=== PATIENT | female | born 1990 | race Caucasian/White ===

== ENCOUNTER 2016-03-02 23:36 | Emergency (ER) | payer OTHER ==
[2016-03-02 23:43] VITALS: BP 110/64; PULSE 82; RESP 18; TEMP 98
[2016-03-03] MEDS ORDERED: HYDROmorphone 2 MG/ML 1 ML SYRINGE IM STA (00:35)
--- NOTE | 2016-03-03 00:52 | ED ---
General Adult HPI - General Chief complaint: Abdominal Pain Stated complaint: Pelvic Pain Time Seen by Provider: 03/03/16 00:26 Source: patient, RN notes reviewed, old records reviewed Mode of arrival: wheelchair Limitations: no limitations - History of Present Illness Initial comments: This is a 26-year-old female in the ER for bowel pain. Patient's of dull pain and suprapubic about pain. No dysuria no bowel or bladder issues no fevers. Patient has history of Crohn's this pain is not similar to her Crohn's, of bowel surgery would did have bowel movement today. No nausea vomiting no fever. Patient states this feels just like prior history of ovarian cysts, patient does take Tylenol with no help. Patient denies vaginal bleeding, denies any possibility of being at this time. Patient states she does have follow-up with OB and would not like any further evaluation done today - Related Data Home Medications Medication Instructions Recorded Confirmed Adalimumab [Humira Pen] 40 mg IM Q14D 09/28/13 03/02/16 Gabapentin [Neurontin] 300 mg PO BID 09/23/15 03/02/16 Loperamide [Imodium] 4 mg PO DAILY 09/23/15 03/02/16 Cyanocobalamin [Vitamin B-12] 500 mcg PO DAILY 03/02/16 03/02/16 Ferrous Sulfate [Feosol] 325 mg PO DAILY 03/02/16 03/02/16 Allergies Allergy/AdvReac Type Severity Reaction Status Date / Time cat dander Allergy Swelling Verified 03/02/16 23:43 ciprofloxacin [From Cipro] Allergy Unknown Verified 03/02/16 23:43 ciprofloxacin HCl Allergy Unknown Verified 03/02/16 23:43 [From Cipro] codeine Allergy Unknown Verified 03/02/16 23:43 diphenhydramine HCl Allergy Unknown Verified 03/02/16 23:43 [From Benadryl] Latex, Natural Rubber Allergy Unknown Verified 03/02/16 23:43 meperidine HCl [From Demerol] Allergy Unknown Verified 03/02/16 23:43 morphine Allergy Unknown Verified 03/02/16 23:43 metronidazole [From Flagyl] AdvReac Unknown Verified 03/02/16 23:43 Review of Systems ROS Statement: Those systems with pertinent positive or pertinent negative responses have been documented in the HPI. ROS Other: All systems not noted in ROS Statement are negative. 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 Ileal pouch and anal anastomosis in September 2010. Past Anesthesia/Blood Transfusion Reactions: No Reported Reaction Past Psychological History: Anxiety, Bipolar, Depression Additional Psychological History / Comment(s): Borderline personality. Smoking Status: Former smoker Past Alcohol Use History: None Reported Additional Past Alcohol Use History / Comment(s): Patient states she does not smoke cigarettes. She does smoke marijuana on a regular basis and is trying to get a medical marijuana card. She denies any alcohol use or any other street drug use. Past Drug Use History: Marijuana - Past Family History Father Family Medical History: Unable to Obtain Additional Family Medical History / Comment(s): Father is 54 years of age and has a problem with alcoholism. Mother Additional Family Medical History / Comment(s): Mother is in her 50s and has mental health issues as well as treatment currently for cat scratch fever. Brother(s) Additional Family Medical History / Comment(s): Patient has 2 brothers one has problems with IBS and one has anger management issues. Patient does not have any sisters. She does not have any children of her own. She states there was a grandmother with Crohn's disease. General Exam Limitations: no limitations General appearance: alert, in no apparent distress Head exam: Present: atraumatic, normocephalic, normal inspection Eye exam: Present: normal appearance, PERRL, EOMI. Absent: scleral icterus, conjunctival injection, periorbital swelling ENT exam: Present: normal exam, mucous membranes moist Neck exam: Present: normal inspection. Absent: tenderness, meningismus, lymphadenopathy Respiratory exam: Present: normal lung sounds bilaterally. Absent: respiratory distress, wheezes, rales, rhonchi, stridor Cardiovascular Exam: Present: regular rate, normal rhythm, normal heart sounds. Absent: systolic murmur, diastolic murmur, rubs, gallop, clicks GI/Abdominal exam: Present: soft, normal bowel sounds. Absent: distended, tenderness, guarding, rebound, rigid Extremities exam: Present: normal inspection, full ROM, normal capillary refill. Absent: tenderness, pedal edema, joint swelling, calf tenderness Back exam: Present: normal inspection Neurological exam: Present: alert, oriented X3, CN II-XII intact Psychiatric exam: Present: normal affect, normal mood Skin exam: Present: warm, dry, intact, normal color. Absent: rash Course Vital Signs 03/02/16 23:39 Temperature 98.0 F Pulse Rate 82 Respiratory 18 Rate Blood Pressure 110/64 O2 Sat by Pulse 98 Oximetry - Reevaluation(s) Reevaluation #1: 03/03/16 00:51 Patient's pain is well-controlled Medical Decision Making - Medical Decision Making 26 female year with acute on chronic pain, pain secondary to ovarian cysts, patient does have history of colitis but that is not an issue at this time. Patient can be discharged home Disposition Clinical Impression: Ovarian cyst, Abdominal pain Disposition: HOME SELF-CARE Condition: Good Instructions: Ovarian Cyst (ED) Referrals: None,Stated [Primary Care Provider] - 1-2 days
[2016-03-03 00:58] LABS: Appearance,Urine Clear (Clear); Bilirubin,Urine Negative (Negative); Glucose,Urine (UA) Negative (Negative); Ketones,Urine Trace (Negative); Leukocyte Esterase,Urine Negative (Negative); Nitrite,Urine Negative (Negative); PH, Urine 5.5 (5.0-8.0); Protein,Urine Negative (Negative); UA Billing (MACRO vs. MICRO) CHEM; Urobilinogen,Urine <2.0 mg/dL (<2.0)
[2016-03-03] MEDS ORDERED: ONDANSETRON ODT 4 MG TAB PO STA (01:16)
== END 2016-03-03 01:18 | disposition home or self-care (01) ==
LOC: EC 23:36
DX: N83.209 Unspecified ovarian cyst, unspecified side (principal); Z88.5 Allergy status to narcotic agent; Z88.1 Allergy status to other antibiotic agents; Z91.040 Latex allergy status; Z88.8 Allergy status to other drugs, medicaments and biological substances; Z91.048 Other nonmedicinal substance allergy status; Z79.899 Other long term (current) drug therapy; K50.90 Crohn's disease, unspecified, without complications; Z87.891 Personal history of nicotine dependence; M79.7 Fibromyalgia; Z93.2 Ileostomy status
CPT/HCPCS: 96372; 99284; 81003; 81025; 87086; J1170

== ENCOUNTER 2016-07-25 03:31 | Emergency (ER) | payer OTHER ==
[2016-07-25 03:36] VITALS: RESP 18
[2016-07-25] MEDS ORDERED: SODIUM CHLORIDE 0.9% 1,000 ML IV STA (03:46)
[2016-07-25] MEDS ORDERED: ONDANSETRON 4 MG/2 ML VIAL IVP STA (03:46)
[2016-07-25] MEDS ORDERED: HYDROmorphone 1 MG/ML 1 ML SYRINGE IVP STA ×2 (03:47→05:57)
--- NOTE | 2016-07-25 03:49 | ED ---
Abdominal Pain HPI - General Source: patient, RN notes reviewed Mode of arrival: ambulatory Limitations: no limitations <Art Lo - Last Filed: 07/25/16 03:48> <Rodney Ramey - Last Filed: 07/25/16 06:14> - General Chief Complaint: Abdominal Pain Stated Complaint: Abdominal Pain/Bloody Stools Time Seen by Provider: 07/25/16 03:40 - History of Present Illness Initial Comments: This a 26-year-old female presents emergency Department chief complaint abdominal pain. Patient states she's been having increasing abdominal pain over the last few days. Patient states that she has also she's had some bloody stools in which she's had in the past secondary to her Crohn's disease. Patient states she's had bowel resection with J-pouch. Patient states she sees a inside meter tester at the [facility]. Patient states also today she has she's had nausea and vomiting states is only after she drank a large amount of tea. Patient denies any hematemesis or coffee-ground emesis. Patient denies any dysuria or hematuria. She states that she believes that she had a fever the other day but has had no fever or chills today. Denies chest pain, shortness breath, headache or dizziness. Patient denies any chance . (Art Lo) - Related Data Home Medications Medication Instructions Recorded Confirmed Adalimumab [Humira Pen] 40 mg IM Q14D 09/28/13 07/25/16 Loperamide [Imodium] 6 mg PO DAILY 09/23/15 07/25/16 Cyanocobalamin [Vitamin B-12] 500 mcg PO DAILY 03/02/16 07/25/16 Previous Rx's Medication Instructions Recorded Mesalamine [Canasa] 1,000 mg RECTAL QMONTH #5 supp 07/25/16 predniSONE 20 mg PO BID #8 tab 07/25/16 Allergies Allergy/AdvReac Type Severity Reaction Status Date / Time cat dander Allergy Swelling Verified 07/25/16 03:36 ciprofloxacin [From Cipro] Allergy Unknown Verified 07/25/16 03:36 ciprofloxacin HCl Allergy Unknown Verified 07/25/16 03:36 [From Cipro] codeine Allergy Unknown Verified 07/25/16 03:36 diphenhydramine HCl Allergy Unknown Verified 07/25/16 03:36 [From Benadryl] Latex, Natural Rubber Allergy Unknown Verified 07/25/16 03:36 meperidine HCl [From Demerol] Allergy Unknown Verified 07/25/16 03:36 morphine Allergy Unknown Verified 07/25/16 03:36 metronidazole [From Flagyl] AdvReac Unknown Verified 07/25/16 03:36 Review of Systems ROS Other: All systems not noted in ROS Statement are negative. <Art Lo - Last Filed: 07/25/16 03:48> ROS Other: All systems not noted in ROS Statement are negative. <Rodney Ramey - Last Filed: 07/25/16 06:14> ROS Statement: Those systems with pertinent positive or pertinent negative responses have been documented in the HPI. 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 Ileal pouch and anal anastomosis in September 2010. Past Anesthesia/Blood Transfusion Reactions: No Reported Reaction Past Psychological History: Anxiety, Bipolar, Depression Additional Psychological History / Comment(s): Borderline personality. Smoking Status: Former smoker Past Alcohol Use History: None Reported Additional Past Alcohol Use History / Comment(s): Patient states she does not smoke cigarettes. She does smoke marijuana on a regular basis and is trying to get a medical marijuana card. She denies any alcohol use or any other street drug use. Past Drug Use History: Marijuana - Past Family History Father Family Medical History: Unable to Obtain Additional Family Medical History / Comment(s): Father is 54 years of age and has a problem with alcoholism. Mother Additional Family Medical History / Comment(s): Mother is in her 50s and has mental health issues as well as treatment currently for cat scratch fever. Brother(s) Additional Family Medical History / Comment(s): Patient has 2 brothers one has problems with IBS and one has anger management issues. Patient does not have any sisters. She does not have any children of her own. She states there was a grandmother with Crohn's disease. <Art Lo - Last Filed: 07/25/16 03:48> General Exam Limitations: no limitations General appearance: alert, in no apparent distress Respiratory exam: Present: normal lung sounds bilaterally. Absent: respiratory distress, wheezes, rales, rhonchi, stridor Cardiovascular Exam: Present: regular rate, normal rhythm, normal heart sounds. Absent: systolic murmur, diastolic murmur, rubs, gallop, clicks GI/Abdominal exam: Present: soft, tenderness (Mild diffuse), normal bowel sounds. Absent: distended, guarding, rebound, rigid Back exam: Absent: CVA tenderness (R), CVA tenderness (L) Skin exam: Present: warm, dry, intact, normal color. Absent: rash <Art Lo - Last Filed: 07/25/16 03:48> Medical Decision Making <Art Lo - Last Filed: 07/25/16 03:48> - Lab Data Result diagrams: 07/25/16 04:12 07/25/16 04:12 <Rodney Ramey - Last Filed: 07/25/16 06:14> - Medical Decision Making This patient is a 26-year-old woman with history of colitis who presents with abdominal pain. Following treatment she is feeling much better and requests to go home with outpatient treatment. We discussed return parameters and appropriate follow-up. The patient states that she has had good results with Canasa suppositories, and will defer to patient request, as well as short course of steroids. I saw this patient in conjunction with the physician warehouse administrative assistant. I performed independent history and physical exam. Agree with case management. The abdominal exam is benign, with no peritoneal signs. (Rodney Ramey) - Lab Data Lab Results 07/25/16 07/25/16 07/25/16 Range/Units 04:12 04:12 04:12 WBC 10.1 (3.8-10.6) k/uL RBC 3.77 L (3.80-5.40) m/uL Hgb 12.8 (11.4-16.0) gm/dL Hct 37.1 (34.0-46.0) % MCV 98.5 (80.0-100.0) fL MCH 34.0 (25.0-35.0) pg MCHC 34.6 (31.0-37.0) g/dL RDW 12.4 (11.5-15.5) % Plt Count 245 (150-450) k/uL Neutrophils % 64 % Lymphocytes % 27 % Monocytes % 5 % Eosinophils % 2 % Basophils % 0 % Neutrophils # 6.5 (1.3-7.7) k/uL Lymphocytes # 2.7 (1.0-4.8) k/uL Monocytes # 0.5 (0-1.0) k/uL Eosinophils # 0.2 (0-0.7) k/uL Basophils # 0.0 (0-0.2) k/uL Sodium 141 (137-145) mmol/L Potassium 4.0 (3.5-5.1) mmol/L Chloride 105 (98-107) mmol/L Carbon Dioxide 25 (22-30) mmol/L Anion Gap 11 mmol/L BUN 11 (7-17) mg/dL Creatinine 0.60 (0.52-1.04) mg/dL Est GFR (MDRD) Af Amer >60 (>60 ml/min/1.73 sqM) Est GFR (MDRD) Non-Af >60 (>60 ml/min/1.73 sqM) Glucose 98 (74-99) mg/dL Calcium 9.6 (8.4-10.2) mg/dL Total Bilirubin 0.2 (0.2-1.3) mg/dL AST 20 (14-36) U/L ALT 21 (9-52) U/L Alkaline Phosphatase 49 (38-126) U/L Total Protein 6.6 (6.3-8.2) g/dL Albumin 4.2 (3.5-5.0) g/dL Amylase 61 (30-110) U/L Lipase 98 (23-300) U/L Urine Color Urine Appearance (Clear) Urine pH (5.0-8.0) Ur Specific [place] (1.001-1.035) Urine Protein (Negative) Urine Glucose (UA) (Negative) Urine Ketones (Negative) Urine Blood (Negative) Urine Nitrite (Negative) Urine Bilirubin (Negative) Urine Urobilinogen (<2.0) mg/dL Ur Leukocyte Esterase (Negative) Urine RBC (0-5) /hpf Urine WBC (0-5) /hpf Ur Squamous Epith Cells (0-4) /hpf Urine Mucus (None) /hpf Urine HCG, Qual Not Detected (Not Detectd) Stool Occult Blood (Negative) 07/25/16 07/25/16 Range/Units 04:12 04:12 WBC (3.8-10.6) k/uL RBC (3.80-5.40) m/uL Hgb (11.4-16.0) gm/dL Hct (34.0-46.0) % MCV (80.0-100.0) fL MCH (25.0-35.0) pg MCHC (31.0-37.0) g/dL RDW (11.5-15.5) % Plt Count (150-450) k/uL Neutrophils % % Lymphocytes % % Monocytes % % Eosinophils % % Basophils % % Neutrophils # (1.3-7.7) k/uL Lymphocytes # (1.0-4.8) k/uL Monocytes # (0-1.0) k/uL Eosinophils # (0-0.7) k/uL Basophils # (0-0.2) k/uL Sodium (137-145) mmol/L Potassium (3.5-5.1) mmol/L Chloride (98-107) mmol/L Carbon Dioxide (22-30) mmol/L Anion Gap mmol/L BUN (7-17) mg/dL Creatinine (0.52-1.04) mg/dL Est GFR (MDRD) Af Amer (>60 ml/min/1.73 sqM) Est GFR (MDRD) Non-Af (>60 ml/min/1.73 sqM) Glucose (74-99) mg/dL Calcium (8.4-10.2) mg/dL Total Bilirubin (0.2-1.3) mg/dL AST (14-36) U/L ALT (9-52) U/L Alkaline Phosphatase (38-126) U/L Total Protein (6.3-8.2) g/dL Albumin (3.5-5.0) g/dL Amylase (30-110) U/L Lipase (23-300) U/L Urine Color Yellow Urine Appearance Clear (Clear) Urine pH 6.0 (5.0-8.0) Ur Specific [place] 1.015 (1.001-1.035) Urine Protein Negative (Negative) Urine Glucose (UA) Negative (Negative) Urine Ketones Negative (Negative) Urine Blood Negative (Negative) Urine Nitrite Negative (Negative) Urine Bilirubin Negative (Negative) Urine Urobilinogen <2.0 (<2.0) mg/dL Ur Leukocyte Esterase Small H (Negative) Urine RBC <1 (0-5) /hpf Urine WBC 5 (0-5) /hpf Ur Squamous Epith Cells <1 (0-4) /hpf Urine Mucus Rare H (None) /hpf Urine HCG, Qual (Not Detectd) Stool Occult Blood Negative (Negative) Disposition <Art Lo - Last Filed: 07/25/16 03:48> <Rodney Ramey - Last Filed: 07/25/16 06:14> Clinical Impression: Abdominal pain Disposition: HOME SELF-CARE Condition: Good Instructions: Abdominal Pain (ED) Prescriptions: Mesalamine [Canasa] 1,000 mg RECTAL QMONTH #5 supp predniSONE 20 mg PO BID #8 tab Referrals: None,Stated [Primary Care Provider] - 1-2 days
[2016-07-25 04:24] LABS: Basophils % (A) 0 %; CH 33.9; CHCM 34.6; Eosinophils # (A) 0.2 k/uL (0-0.7); Eosinophils % (A) 2 %; HCT 37.1 % (34.0-46.0); HDW 2.15; HGB 12.8 gm/dL (11.4-16.0); Luc # (Auto) 0.16; Luc % (Auto) 2; Lymphocytes # (A) 2.7 k/uL (1.0-4.8); Lymphocytes % (A) 27 %; MCHC 34.6 g/dL (31.0-37.0); MCV 98.5 fL (80.0-100.0); Mean Platelet Volume 6.9; Monocytes # (A) 0.5 k/uL (0-1.0); Monocytes % (A) 5 %; Neutrophils # (A) 6.5 k/uL (1.3-7.7); Neutrophils % (A) 64 %; RBC 3.77 m/uL (3.80-5.40); RDW 12.4 % (11.5-15.5); WBC 10.1 k/uL (3.8-10.6); WBC (Perox) 9.96
[2016-07-25 04:25] LABS: Appearance,Urine Clear (Clear); Bilirubin,Urine Negative (Negative); Glucose,Urine (UA) Negative (Negative); Ketones,Urine Negative (Negative); Leukocyte Esterase,Urine Small (Negative); Mucus,Urine Rare /hpf; Nitrite,Urine Negative (Negative); Particle Count 1458; Protein,Urine Negative (Negative); RBC,Urine <1 /hpf (0-5); Specific Gravity,Urine 1.015 (1.001-1.035); Squamous Epithelial Cell,Urine <1 /hpf (0-4); UA Billing (MACRO vs. MICRO) MICRO; Urobilinogen,Urine <2.0 mg/dL (<2.0); WBC,Urine 5 /hpf (0-5)
[2016-07-25 04:34] LABS: ALT 21 U/L (9-52); AST 20 U/L (14-36); Alkaline Phosphatase 49 U/L (38-126); Amylase 61 U/L (30-110); Anion Gap 11 mmol/L; Blood Urea Nitrogen 11 mg/dL (7-17); Calcium 9.6 mg/dL (8.4-10.2); Carbon Dioxide 25 mmol/L (22-30); Chloride 105 mmol/L (98-107); Glucose 98 mg/dL (74-99); Non-African American GFR(MDRD) >60 (>60 ml/min/1.73 sqM); Sodium 141 mmol/L (137-145); Total Bilirubin 0.2 mg/dL (0.2-1.3); Total Protein 6.6 g/dL (6.3-8.2)
--- NOTE | 2016-07-25 05:16 | XR ---
EXAM: XR Abdomen Complete, 2 or More Views CLINICAL HISTORY: abdominal pain TECHNIQUE: Frontal view of the abdomen/pelvis with upright view of the abdomen. COMPARISON: Abdominal x-ray dated 06/20/2014 FINDINGS: Intraperitoneal space: No free air. Gastrointestinal tract: Unremarkable. No dilation. Bones/joints: Unremarkable. IMPRESSION: Normal abdominal x-rays.
[2016-07-25] MEDS ORDERED: methylPREDNISolone SOD SUCCI 125 MG/2 ML VIAL IV STA (05:58)
[2016-07-25 06:21] VITALS: BP 107/58; PULSE 72; TEMP 97.6
== END 2016-07-25 06:20 | disposition home or self-care (01) ==
LOC: EC 03:31
DX: R10.84 Generalized abdominal pain (principal); R11.2 Nausea with vomiting, unspecified; Z90.49 Acquired absence of other specified parts of digestive tract; Z87.891 Personal history of nicotine dependence; Z88.1 Allergy status to other antibiotic agents; Z88.8 Allergy status to other drugs, medicaments and biological substances; Z88.5 Allergy status to narcotic agent; Z91.040 Latex allergy status; Z91.048 Other nonmedicinal substance allergy status; Z91.09 Other allergy status, other than to drugs and biological substances; Z79.899 Other long term (current) drug therapy
CPT/HCPCS: 99284; 96374; 96375 ×2; 96376; 96361; 36415; 80053; 82150; 83690; 85025; 82272; 81001; 81025; 74000; J2930; J2405; J1170

== ENCOUNTER 2016-07-26 03:28 | Emergency (ER) | payer OTHER ==
[2016-07-26] MEDS ORDERED: HYDROmorphone 1 MG/ML 1 ML SYRINGE IM STA (03:46)
[2016-07-26] MEDS ORDERED: PROMETHAZINE INJ 25 MG/ML 1 ML VIAL IM STA (03:46)
--- NOTE | 2016-07-26 03:49 | ED ---
Headache HPI - General Chief Complaint: Headache Stated Complaint: Migrane Time Seen by Provider: 07/26/16 03:39 Source: patient, RN notes reviewed Mode of arrival: ambulatory Limitations: no limitations - History of Present Illness Initial Comments: 26-year-old female presents emergency Department with chief complaint of migraine headache. Patient states that she usually gets severe migraine headaches and this is her typical headache. Patient states she has noticed when she gets Zofran she gets a headache from it. She states that she was seen in emergency department last night for Crohn's. Patient states that she is feeling better. Aspect states her headache is unbearable. Patient does state that she had a gas leak in her household but states that they had fire department come out and having was normal. Patient's is requesting something for her headache at this time. She does have some nausea and photophobia. Patient has any chest pain, back pain. She states that she feels that the pains radiating from her from her head down to the backside into her neck. - Related Data Home Medications Medication Instructions Recorded Confirmed Adalimumab [Humira Pen] 40 mg IM Q14D 09/28/13 07/26/16 Loperamide [Imodium] 6 mg PO DAILY 09/23/15 07/26/16 Cyanocobalamin [Vitamin B-12] 500 mcg PO DAILY 03/02/16 07/26/16 Previous Rx's Medication Instructions Recorded Mesalamine [Canasa] 1,000 mg RECTAL QMONTH #5 supp 07/25/16 predniSONE 20 mg PO BID #8 tab 07/25/16 Allergies Allergy/AdvReac Type Severity Reaction Status Date / Time cat dander Allergy Swelling Verified 07/26/16 03:34 ciprofloxacin [From Cipro] Allergy Unknown Verified 07/26/16 03:34 ciprofloxacin HCl Allergy Unknown Verified 07/26/16 03:34 [From Cipro] codeine Allergy Unknown Verified 07/26/16 03:34 diphenhydramine HCl Allergy Unknown Verified 07/26/16 03:34 [From Benadryl] Latex, Natural Rubber Allergy Unknown Verified 07/26/16 03:34 meperidine HCl [From Demerol] Allergy Unknown Verified 07/26/16 03:34 morphine Allergy Unknown Verified 07/26/16 03:34 metronidazole [From Flagyl] AdvReac Unknown Verified 07/26/16 03:34 Review of Systems ROS Statement: Those systems with pertinent positive or pertinent negative responses have been documented in the HPI. ROS Other: All systems not noted in ROS Statement are negative. 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 Ileal pouch and anal anastomosis in September 2010. Past Anesthesia/Blood Transfusion Reactions: No Reported Reaction Past Psychological History: Anxiety, Bipolar, Depression Additional Psychological History / Comment(s): Borderline personality. Smoking Status: Former smoker Past Alcohol Use History: None Reported Additional Past Alcohol Use History / Comment(s): Patient states she does not smoke cigarettes. She does smoke marijuana on a regular basis and is trying to get a medical marijuana card. She denies any alcohol use or any other street drug use. Past Drug Use History: Marijuana - Past Family History Father Family Medical History: Unable to Obtain Additional Family Medical History / Comment(s): Father is 54 years of age and has a problem with alcoholism. Mother Additional Family Medical History / Comment(s): Mother is in her 50s and has mental health issues as well as treatment currently for cat scratch fever. Brother(s) Additional Family Medical History / Comment(s): Patient has 2 brothers one has problems with IBS and one has anger management issues. Patient does not have any sisters. She does not have any children of her own. She states there was a grandmother with Crohn's disease. General Exam Limitations: no limitations General appearance: alert, in no apparent distress Head exam: Present: atraumatic, normocephalic, normal inspection Eye exam: Present: normal appearance, PERRL, EOMI. Absent: scleral icterus, conjunctival injection, periorbital swelling ENT exam: Present: normal exam, normal oropharynx, mucous membranes moist Neck exam: Present: normal inspection, full ROM. Absent: tenderness, meningismus, lymphadenopathy Respiratory exam: Present: normal lung sounds bilaterally. Absent: respiratory distress, wheezes, rales, rhonchi, stridor Cardiovascular Exam: Present: regular rate, normal rhythm, normal heart sounds. Absent: systolic murmur, diastolic murmur, rubs, gallop, clicks Neurological exam: Present: alert, oriented X3, CN II-XII intact, reflexes normal. Absent: motor sensory deficit Skin exam: Present: warm, dry, intact, normal color. Absent: rash Course Vital Signs 07/26/16 03:32 Temperature 98.0 F Pulse Rate 68 Respiratory 18 Rate Blood Pressure 106/65 O2 Sat by Pulse 99 Oximetry Medical Decision Making - Medical Decision Making 26-year-old female presented emergency from for migraine headache. Patient's headache is a typical headache she has no neurological deficits. Patient has no fever no meningismus. Patient will be discharged after IM injections. Return parameters were discussed. Disposition Clinical Impression: Migraine Disposition: HOME SELF-CARE Condition: Stable Instructions: Acute Headache (ED) Additional Instructions: Please return to the Emergency Department if symptoms worsen or any other concerns. Referrals: None,Stated [Primary Care Provider] - 1-2 days Time of Disposition: 03:49
[2016-07-26] MEDS ORDERED: diphenhydrAMINE 50 MG/ML 1 ML VIAL IM STA (04:51)
[2016-07-26] MEDS ORDERED: methylPREDNISolone SOD SUCCI 125 MG/2 ML VIAL IM STA (04:51)
[2016-07-26 04:53] VITALS: BP 113/69; PULSE 54; RESP 12; TEMP 97.7
== END 2016-07-26 05:47 | disposition home or self-care (01) ==
LOC: EC 03:28
DX: G43.909 Migraine, unspecified, not intractable, without status migrainosus (principal); K50.90 Crohn's disease, unspecified, without complications; Z87.891 Personal history of nicotine dependence; Z79.899 Other long term (current) drug therapy; Z88.1 Allergy status to other antibiotic agents; Z88.5 Allergy status to narcotic agent; Z88.8 Allergy status to other drugs, medicaments and biological substances; Z91.040 Latex allergy status; Z91.048 Other nonmedicinal substance allergy status
CPT/HCPCS: 99283; 96372 ×4; J1200; J2550; J2930; J1170

== ENCOUNTER 2016-08-30 16:41 | Emergency (ER) | payer OTHER ==
[2016-08-30 16:56] VITALS: TEMP 98.8
--- NOTE | 2016-08-30 17:48 | ED ---
General Adult HPI - General Chief complaint: Anxiety Stated complaint: Anxiety Time Seen by Provider: 08/30/16 17:31 Source: patient, RN notes reviewed, old records reviewed Mode of arrival: ambulatory Limitations: no limitations - History of Present Illness Initial comments: 26-year-old female presents to the ED chief complaint of severe anxiety and abdominal pain. Patient reports that she has a history of Crohn's disease and her anxiety is exacerbating her Crohn's disease. Patient states that she has not ate for a week. She reports that she has recently discontinued taking gabapentin as it was causing her to have suicidal thoughts. Patient reports that she does not have any suicidal thoughts at this time and is much better after stopping to take the gabapentin. Patient does have a history of severe Crohn's disease which she does have a history of bowel resection and J-pouch renal stenoses. 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 Patient states that she's had normal urination. She is currently on her menstrual cycle. Denies any vomiting. She denies any blood in her stools and did have a bowel movement earlier today. States that she does not know if the anxiety is causing the abdominal pain or any abdominal pain is worsening her anxiety. Patient denies any recent fever, chills, shortness of breath, chest pain, back pain, numbness or tingling, dysuria or hematuria, constipation or diarrhea, headaches or visual changes, or any other current symptoms - Related Data Home Medications Medication Instructions Recorded Confirmed Adalimumab [Humira Pen] 40 mg IM Q14D 09/28/13 08/30/16 Loperamide [Imodium] 6 mg PO DAILY 09/23/15 08/30/16 Acetaminophen Tab [Tylenol Tab] 1,000 mg PO Q6HR PRN 08/30/16 08/30/16 Allergies Allergy/AdvReac Type Severity Reaction Status Date / Time cat dander Allergy Swelling Verified 08/30/16 17:49 ciprofloxacin [From Cipro] Allergy Unknown Verified 08/30/16 17:49 ciprofloxacin HCl Allergy Unknown Verified 08/30/16 17:49 [From Cipro] codeine Allergy Unknown Verified 08/30/16 17:49 diphenhydramine HCl Allergy Unknown Verified 08/30/16 17:49 [From Benadryl] Latex, Natural Rubber Allergy Unknown Verified 08/30/16 17:49 meperidine HCl [From Demerol] Allergy Unknown Verified 08/30/16 17:49 morphine Allergy Unknown Verified 08/30/16 17:49 metronidazole [From Flagyl] AdvReac Unknown Verified 08/30/16 17:49 Review of Systems ROS Statement: Those systems with pertinent positive or pertinent negative responses have been documented in the HPI. ROS Other: All systems not noted in ROS Statement are negative. 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 Ileal pouch and anal anastomosis in September 2010. Past Anesthesia/Blood Transfusion Reactions: No Reported Reaction Past Psychological History: Anxiety, Bipolar, Depression Smoking Status: Current every day smoker Past Alcohol Use History: None Reported Past Drug Use History: Marijuana - Past Family History Father Family Medical History: Unable to Obtain Additional Family Medical History / Comment(s): Father is 54 years of age and has a problem with alcoholism. Mother Additional Family Medical History / Comment(s): Mother is in her 50s and has mental health issues as well as treatment currently for cat scratch fever. Brother(s) Additional Family Medical History / Comment(s): Patient has 2 brothers one has problems with IBS and one has anger management issues. Patient does not have any sisters. She does not have any children of her own. She states there was a grandmother with Crohn's disease. General Exam - General Exam Comments Initial Comments: 26-year-old female. No acute distress. Limitations: no limitations General appearance: alert, in no apparent distress Head exam: Present: atraumatic, normocephalic, normal inspection Eye exam: Present: normal appearance, PERRL, EOMI. Absent: scleral icterus, conjunctival injection, periorbital swelling ENT exam: Present: normal exam, mucous membranes moist Neck exam: Present: normal inspection. Absent: tenderness, meningismus, lymphadenopathy Respiratory exam: Present: normal lung sounds bilaterally. Absent: respiratory distress, wheezes, rales, rhonchi, stridor Cardiovascular Exam: Present: regular rate, normal rhythm, normal heart sounds. Absent: systolic murmur, diastolic murmur, rubs, gallop, clicks GI/Abdominal exam: Present: soft, tenderness (diffuse abdominal tenderness), normal bowel sounds. Absent: distended, guarding, rebound, rigid Extremities exam: Present: normal inspection, full ROM, normal capillary refill. Absent: tenderness, pedal edema, joint swelling, calf tenderness Back exam: Present: normal inspection Neurological exam: Present: alert, oriented X3, CN II-XII intact Psychiatric exam: Present: normal affect, normal mood Skin exam: Present: warm, dry, intact, normal color. Absent: rash Course Vital Signs 08/30/16 08/30/16 16:53 20:15 Temperature 98.8 F Pulse Rate 77 66 Respiratory 20 18 Rate Blood Pressure 108/67 103/57 O2 Sat by Pulse 98 98 Oximetry Medical Decision Making - Medical Decision Making 26-year-old female presents to the ED chief complaint of severe anxiety and abdominal pain. Patient reports that she has a history of Crohn's disease and her anxiety is exacerbating her Crohn's disease. Patient states that she has not ate for a week. She reports that she has recently discontinued taking gabapentin as it was causing her to have suicidal thoughts. Patient reports that she does not have any suicidal thoughts at this time and is much better after stopping to take the gabapentin. Patient does have a history of severe Crohn's disease which she does have a history of bowel resection and J-pouch renal stenoses. 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 Patient states that she's had normal urination. She is currently on her menstrual cycle. Denies any vomiting. She denies any blood in her stools and did have a bowel movement earlier today. Patient's lab work was reviewed. Negative for any acute process except blood in stool. Patient is currently on her menstrual cycle and that could've been contamination from this. As I was about to discuss all the findings with the patient I discovered that she left AMA. Patient was upset that she did not receive another Dilaudid for her IV pain. Patient did not wait for me to come back to discuss that I was going to discharge her with anxiety medication. - Lab Data Result diagrams: 08/30/16 19:08 08/30/16 19:08 Lab Results 08/30/16 08/30/16 08/30/16 Range/Units 19:08 19:08 20:05 WBC 9.0 (3.8-10.6) k/uL RBC 3.84 (3.80-5.40) m/uL Hgb 13.2 (11.4-16.0) gm/dL Hct 37.7 (34.0-46.0) % MCV 98.4 (80.0-100.0) fL MCH 34.3 (25.0-35.0) pg MCHC 34.9 (31.0-37.0) g/dL RDW 12.6 (11.5-15.5) % Plt Count 247 (150-450) k/uL Neutrophils % 68 % Lymphocytes % 25 % Monocytes % 4 % Eosinophils % 1 % Basophils % 1 % Neutrophils # 6.1 (1.3-7.7) k/uL Lymphocytes # 2.3 (1.0-4.8) k/uL Monocytes # 0.4 (0-1.0) k/uL Eosinophils # 0.1 (0-0.7) k/uL Basophils # 0.1 (0-0.2) k/uL Sodium 140 (137-145) mmol/L Potassium 4.0 (3.5-5.1) mmol/L Chloride 109 H (98-107) mmol/L Carbon Dioxide 21 L (22-30) mmol/L Anion Gap 10 mmol/L BUN 6 L (7-17) mg/dL Creatinine 0.53 (0.52-1.04) mg/dL Est GFR (MDRD) Af Amer >60 (>60 ml/min/1.73 sqM) Est GFR (MDRD) Non-Af >60 (>60 ml/min/1.73 sqM) Glucose 80 (74-99) mg/dL Calcium 9.7 (8.4-10.2) mg/dL Total Bilirubin 0.7 (0.2-1.3) mg/dL AST 19 (14-36) U/L ALT 20 (9-52) U/L Alkaline Phosphatase 53 (38-126) U/L Total Protein 7.1 (6.3-8.2) g/dL Albumin 4.4 (3.5-5.0) g/dL Amylase 53 (30-110) U/L Lipase 261 (23-300) U/L Urine Color Light Yellow Urine Appearance Clear (Clear) Urine pH 6.5 (5.0-8.0) Ur Specific [place] 1.006 (1.001-1.035) Urine Protein Negative (Negative) Urine Glucose (UA) Negative (Negative) Urine Ketones 1+ H (Negative) Urine Blood Small H (Negative) Urine Nitrite Negative (Negative) Urine Bilirubin Negative (Negative) Urine Urobilinogen <2.0 (<2.0) mg/dL Ur Leukocyte Esterase Negative (Negative) Urine RBC 1 (0-5) /hpf Urine WBC 1 (0-5) /hpf Ur Squamous Epith Cells <1 (0-4) /hpf Urine Bacteria Rare H (None) /hpf Urine Mucus Rare H (None) /hpf Stool Occult Blood (Negative) 08/30/16 Range/Units 20:15 WBC (3.8-10.6) k/uL RBC (3.80-5.40) m/uL Hgb (11.4-16.0) gm/dL Hct (34.0-46.0) % MCV (80.0-100.0) fL MCH (25.0-35.0) pg MCHC (31.0-37.0) g/dL RDW (11.5-15.5) % Plt Count (150-450) k/uL Neutrophils % % Lymphocytes % % Monocytes % % Eosinophils % % Basophils % % Neutrophils # (1.3-7.7) k/uL Lymphocytes # (1.0-4.8) k/uL Monocytes # (0-1.0) k/uL Eosinophils # (0-0.7) k/uL Basophils # (0-0.2) k/uL Sodium (137-145) mmol/L Potassium (3.5-5.1) mmol/L Chloride (98-107) mmol/L Carbon Dioxide (22-30) mmol/L Anion Gap mmol/L BUN (7-17) mg/dL Creatinine (0.52-1.04) mg/dL Est GFR (MDRD) Af Amer (>60 ml/min/1.73 sqM) Est GFR (MDRD) Non-Af (>60 ml/min/1.73 sqM) Glucose (74-99) mg/dL Calcium (8.4-10.2) mg/dL Total Bilirubin (0.2-1.3) mg/dL AST (14-36) U/L ALT (9-52) U/L Alkaline Phosphatase (38-126) U/L Total Protein (6.3-8.2) g/dL Albumin (3.5-5.0) g/dL Amylase (30-110) U/L Lipase (23-300) U/L Urine Color Urine Appearance (Clear) Urine pH (5.0-8.0) Ur Specific [place] (1.001-1.035) Urine Protein (Negative) Urine Glucose (UA) (Negative) Urine Ketones (Negative) Urine Blood (Negative) Urine Nitrite (Negative) Urine Bilirubin (Negative) Urine Urobilinogen (<2.0) mg/dL Ur Leukocyte Esterase (Negative) Urine RBC (0-5) /hpf Urine WBC (0-5) /hpf Ur Squamous Epith Cells (0-4) /hpf Urine Bacteria (None) /hpf Urine Mucus (None) /hpf Stool Occult Blood Positive H (Negative) - Radiology Data Radiology results: report reviewed KUB shows nonobstructive bowel gas pattern. Disposition Clinical Impression: Anxiety, Acute Crohn's disease Disposition: Left Against Medical Advice Instructions: Generalized Anxiety Disorder (ED) Referrals: None,Stated [Primary Care Provider] - 1-2 days Time of Disposition: 21:07
[2016-08-30] MEDS ORDERED: SODIUM CHLORIDE 0.9% 2,000 ML IV STA (17:57)
[2016-08-30] MEDS ORDERED: ONDANSETRON ODT 8 MG TAB.RAPDIS PO STA (17:57)
[2016-08-30] MEDS ORDERED: HYDROmorphone 1 MG/ML 1 ML SYRINGE IVP STA (17:57)
[2016-08-30] MEDS ORDERED: LORazepam 2 MG/ML SYRINGE IV STA (19:14)
[2016-08-30 19:17] LABS: Basophils # (A) 0.1 k/uL (0-0.2); Basophils % (A) 1 %; CHCM 34.7; Eosinophils # (A) 0.1 k/uL (0-0.7); Eosinophils % (A) 1 %; HCT 37.7 % (34.0-46.0); HDW 2.16; HGB 13.2 gm/dL (11.4-16.0); Luc # (Auto) 0.14; Luc % (Auto) 2; Lymphocytes # (A) 2.3 k/uL (1.0-4.8); Lymphocytes % (A) 25 %; MCH 34.3 pg (25.0-35.0); MCHC 34.9 g/dL (31.0-37.0); MCV 98.4 fL (80.0-100.0); Mean Platelet Volume 7.1; Monocytes # (A) 0.4 k/uL (0-1.0); Monocytes % (A) 4 %; Neutrophils # (A) 6.1 k/uL (1.3-7.7); Neutrophils % (A) 68 %; RBC 3.84 m/uL (3.80-5.40); RDW 12.6 % (11.5-15.5); WBC (Perox) 8.77
--- NOTE | 2016-08-30 19:34 | XR ---
EXAMINATION TYPE: XR KUB DATE OF EXAM: 08/30/2016 COMPARISON: NONE HISTORY: Pain TECHNIQUE: Single supine KUB image of the abdomen is obtained FINDINGS: Small bowel demonstrates no evidence for dilatation or air fluid levels. Gas and fecal material is seen in non-distended colon. No convincing evidence for pneumoperitoneum. No unusual calcifications. The lung bases are clear. The osseous structures are intact. IMPRESSION: 1. Overall nonobstructive bowel gas pattern.
[2016-08-30 19:41] LABS: ALT 20 U/L (9-52); AST 19 U/L (14-36); Alkaline Phosphatase 53 U/L (38-126); Amylase 53 U/L (30-110); Anion Gap 10 mmol/L; Blood Urea Nitrogen 6 mg/dL (7-17); Calcium 9.7 mg/dL (8.4-10.2); Carbon Dioxide 21 mmol/L (22-30); Chloride 109 mmol/L (98-107); Glucose 80 mg/dL (74-99); Non-African American GFR(MDRD) >60 (>60 ml/min/1.73 sqM); Sodium 140 mmol/L (137-145); Total Bilirubin 0.7 mg/dL (0.2-1.3); Total Protein 7.1 g/dL (6.3-8.2)
[2016-08-30 20:19] LABS: Appearance,Urine Clear (Clear); Bacteria,Urine Rare /hpf; Bilirubin,Urine Negative (Negative); Glucose,Urine (UA) Negative (Negative); Ketones,Urine 1+ (Negative); Leukocyte Esterase,Urine Negative (Negative); Mucus,Urine Rare /hpf; Nitrite,Urine Negative (Negative); PH, Urine 6.5 (5.0-8.0); Particle Count 1409; Protein,Urine Negative (Negative); RBC,Urine 1 /hpf (0-5); Specific Gravity,Urine 1.006 (1.001-1.035); Squamous Epithelial Cell,Urine <1 /hpf (0-4); UA Billing (MACRO vs. MICRO) MICRO; Urobilinogen,Urine <2.0 mg/dL (<2.0); WBC,Urine 1 /hpf (0-5)
[2016-08-30] MEDS: KETOROLAC 30 MG/ML 1 ML VIAL IVP STA ×2 (20:22→20:28)
[2016-08-30 20:55] VITALS: BP 103/57; PULSE 66; RESP 18
== END 2016-08-30 21:02 | disposition left against medical advice (07) ==
LOC: EC 16:41
DX: K50.90 Crohn's disease, unspecified, without complications (principal); F41.9 Anxiety disorder, unspecified; K92.1 Melena; F17.200 Nicotine dependence, unspecified, uncomplicated; Z79.899 Other long term (current) drug therapy; Z88.1 Allergy status to other antibiotic agents; Z88.5 Allergy status to narcotic agent; Z88.8 Allergy status to other drugs, medicaments and biological substances; Z91.09 Other allergy status, other than to drugs and biological substances; Z83.79 Family history of other diseases of the digestive system; Z90.49 Acquired absence of other specified parts of digestive tract; Z93.2 Ileostomy status; Z53.20 Procedure and treatment not carried out because of patient's decision for unspecified reasons
CPT/HCPCS: 36415; 80053; 82150; 83690; 85025; 82272; 81001; 74000; 99284; 96374; 96375; 96361 ×2; J2060; J1170

== ENCOUNTER → 2016-11-05 | Outpatient (CLI) | payer OTHER ==
[2016-11-05 13:39] LABS: Basophils # (A) 0.1 k/uL (0-0.2); Basophils % (A) 1 %; Eosinophils % (A) 1 %; HCT 41.2 % (34.0-46.0); HDW 2.29; Luc # (Auto) 0.17; Luc % (Auto) 2; Lymphocytes # (A) 2.1 k/uL (1.0-4.8); Lymphocytes % (A) 27 %; MCH 33.1 pg (25.0-35.0); MCV 97.5 fL (80.0-100.0); Mean Platelet Volume 7.4; Monocytes # (A) 0.3 k/uL (0-1.0); Monocytes % (A) 4 %; Neutrophils # (A) 5.2 k/uL (1.3-7.7); Neutrophils % (A) 66 %; RBC 4.22 m/uL (3.80-5.40); RDW 12.4 % (11.5-15.5); WBC 7.8 k/uL (3.8-10.6); WBC (Perox) 8.01
[2016-11-05 13:53] LABS: ALT 27 U/L (9-52); AST 19 U/L (14-36); Alkaline Phosphatase 60 U/L (38-126); Anion Gap 10 mmol/L; Blood Urea Nitrogen 10 mg/dL (7-17); C Reactive Protein <5.0 mg/L (<10.0); Calcium 9.9 mg/dL (8.4-10.2); Carbon Dioxide 21 mmol/L (22-30); Chloride 109 mmol/L (98-107); Glucose 81 mg/dL (74-99); Non-African American GFR(MDRD) >60 (>60 ml/min/1.73 sqM); Potassium 4.1 mmol/L (3.5-5.1); Sodium 140 mmol/L (137-145); Total Bilirubin 0.6 mg/dL (0.2-1.3); Total Protein 7.5 g/dL (6.3-8.2)
[2016-11-05 14:36] LABS: Erythrocyte Sedimentation Rate 6 mm/hr (0-20)
== END | disposition home or self-care (01) ==
LOC: LABWHC1 12:33
PROVIDERS: ATTEND Internal Medicine
DX: K50.113 Crohn's disease of large intestine with fistula (principal)
CPT/HCPCS: 36415; 80053; 85025; 85652; 86140; 86480

== ENCOUNTER 2017-03-01 18:57 | Emergency (ER) | payer OTHER ==
[2017-03-01 19:10] VITALS: BP 111/68; PULSE 82; RESP 17; TEMP 98.1
--- NOTE | 2017-03-01 19:34 | XR ---
EXAMINATION TYPE: XR finger RT DATE OF EXAM: 03/01/2017 COMPARISON: NONE HISTORY: Laceration TECHNIQUE: 3 views FINDINGS: I see no fracture nor dislocation. Joint spaces are normal. There are no pathologic calcifi cations. IMPRESSION: Negative right thumb exam
--- NOTE | 2017-03-01 19:53 | ED ---
General Adult HPI - General Chief complaint: Extremity Injury, Upper Stated complaint: RT HAND Time Seen by Provider: 03/01/17 19:11 Source: patient, RN notes reviewed Mode of arrival: ambulatory Limitations: no limitations - History of Present Illness Initial comments: This is a 27-year-old female who presents to the emergency department with chief complaint of skin infection. Patient was seen here on 02/08/2017 with a laceration to the webbing on her right hand between thumb and index finger. Patient then later presented to the emergency department to have her sutures removed and claimed that she believed she had a skin infection to the laceration site. Patient was prescribed Keflex. Patient finished her course of Keflex yesterday. She presents to the emergency Department today worried that she may develop another skin infection. She states that she did not receive an x-ray on initial presentation to the emergency department and wishes to have one performed to rule out any glass foreign body. Patient denies any fevers or chills. She denies any drainage from the site. Denies fever, chills , chest pain, shortness of breath, abdominal pain, nausea or vomiting, constipation or diarrhea, dysuria or hematuria, numbness or tingling, headache or vision changes. - Related Data Home Medications Medication Instructions Recorded Confirmed Adalimumab [Humira Pen] 40 mg IM Q14D 09/28/13 12/24/16 Acetaminophen Tab [Tylenol Tab] 1,000 mg PO Q6HR PRN 08/30/16 12/24/16 Previous Rx's Medication Instructions Recorded Hydrocodone/Acetaminophen [[place] 1 tab PO Q6HR PRN #15 tab 12/24/16 5-325] Penicillin V Potassium [Pen Vee K] 500 mg PO QID #40 tablet 12/24/16 Permethrin 5% Cream [Elimite] 1 applic TOPICAL ONCE #60 gram 12/24/16 Allergies Allergy/AdvReac Type Severity Reaction Status Date / Time cat dander Allergy Swelling Verified 03/01/17 19:11 ciprofloxacin [From Cipro] Allergy Unknown Verified 03/01/17 19:11 ciprofloxacin HCl Allergy Unknown Verified 03/01/17 19:11 [From Cipro] codeine Allergy Unknown Verified 03/01/17 19:11 diphenhydramine HCl Allergy Unknown Verified 03/01/17 19:11 [From Benadryl] Latex, Natural Rubber Allergy Unknown Verified 03/01/17 19:11 meperidine HCl [From Demerol] Allergy Unknown Verified 03/01/17 19:11 morphine Allergy Unknown Verified 03/01/17 19:11 metronidazole [From Flagyl] AdvReac Unknown Verified 03/01/17 19:11 Review of Systems ROS Statement: Those systems with pertinent positive or pertinent negative responses have been documented in the HPI. ROS Other: All systems not noted in ROS Statement are negative. 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 Ileal pouch and anal anastomosis in September 2010. Past Anesthesia/Blood Transfusion Reactions: No Reported Reaction Past Psychological History: Anxiety, Bipolar, Depression Smoking Status: Current every day smoker Past Alcohol Use History: None Reported Past Drug Use History: Marijuana - Past Family History Father Family Medical History: Unable to Obtain Additional Family Medical History / Comment(s): Father is 54 years of age and has a problem with alcoholism. Mother Additional Family Medical History / Comment(s): Mother is in her 50s and has mental health issues as well as treatment currently for cat scratch fever. Brother(s) Additional Family Medical History / Comment(s): Patient has 2 brothers one has problems with IBS and one has anger management issues. Patient does not have any sisters. She does not have any children of her own. She states there was a grandmother with Crohn's disease. General Exam - General Exam Comments Initial Comments: General: Awake and alert, well-developed; in no apparent distress. Appears anxious. HEENT: Head atraumatic, normocephalic. Pupils are equal, round and reactive to light. Extraocular movements intact. Neck: Supple. Normal ROM. Cardiovascular: Regular rate and rhythm. No murmurs, rubs or gallops. Chest symmetrical. Respiratory: Lungs clear to auscultation bilaterally. No wheezes, rales or rhonchi. Normal respiratory effort with no use of accessory muscles. Musculoskeletal: Normal active range of motion of the right thumb and index finger. Sensation is intact. Radial pulses are 2+ equal and palpable bilaterally. Skin: [place], warm and dry. Firm tissue with mild tenderness palpated over previous laceration site. No area of fluctuance. Well-healing site without evidence of erythema, drainage, warmth or swelling. Neurological: Alert and oriented x3. CN II-XII grossly intact. Speech is fluent and answers are appropriate. No focal neuro deficits. Limitations: no limitations Course Vital Signs 03/01/17 19:08 Temperature 98.1 F Pulse Rate 82 Respiratory 17 Rate Blood Pressure 111/68 O2 Sat by Pulse 99 Oximetry Medical Decision Making - Medical Decision Making This is a 27-year-old female who presents to the emergency department for evaluation of possible skin infection of previous right hand laceration. Patient is convinced that she has a skin infection at the site of her previous laceration on right hand. The scar is healing well without evidence of inflammation or infection. There are no areas of fluctuance, erythema, warmth, or swelling noted on physical examination. Patient recently finished her course of Keflex yesterday. She requested to have an x-ray performed to rule out glass foreign body. X-ray revealed no abnormalities. This case was discussed with attending physician, Dr. Garcia who also evaluated the patient. He agrees that the site is healing well. Patient will be discharged home at this time. She is in no acute distress. Educated patient on signs of skin infection. Return parameters were discussed. Patient is in agreement and voices understanding. All questions were answered. - Radiology Data Radiology results: report reviewed X-ray right finger findings: I see no fracture nor dislocation. Joint spaces are normal. There are no pathologic calcifications. Impression: Negative right thumb exam. Disposition Clinical Impression: Wound healing well on examination Disposition: HOME SELF-CARE Condition: Good Instructions: Finger Laceration (ED) Additional Instructions: Monitor for any signs of infection including fevers or chills, drainage or spreading redness over healing scar. Please follow up with primary care provider within 1-2 days. Return to emergency department if symptoms should worsen or any concerns arise. Referrals: None,Stated [Primary Care Provider] - 1-2 days Jeannette Ball MD [STAFF PHYSICIAN] - 1-2 days Time of Disposition: 19:58
== END 2017-03-01 20:02 | disposition home or self-care (01) ==
LOC: EC 18:57
DX: S61.411D Laceration without foreign body of right hand, subsequent encounter (principal); F17.200 Nicotine dependence, unspecified, uncomplicated; Z91.09 Other allergy status, other than to drugs and biological substances; Z88.1 Allergy status to other antibiotic agents; Z88.5 Allergy status to narcotic agent; Z91.040 Latex allergy status; Z91.048 Other nonmedicinal substance allergy status; Z88.8 Allergy status to other drugs, medicaments and biological substances; X58.XXXD Exposure to other specified factors, subsequent encounter
CPT/HCPCS: 99283

== ENCOUNTER 2017-09-01 16:09 | Emergency (ER) | payer OTHER ==
[2017-09-01 16:29] VITALS: BP 114/70; PULSE 111; RESP 18; TEMP 97
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
--- NOTE | 2017-09-01 17:32 | CT ---
EXAMINATION TYPE: CT brain hailey stone con DATE OF EXAM: 09/01/2017 COMPARISON: NONE HISTORY: Patient complains of nausea, left periorbital contusion, and redness of left orbit possibly from an object, post trauma. CT DLP: 938.2 mGycm Automated exposure control for dose reduction was used. TECHNIQUE: CT scan of the head and cervical spine are performed without contrast. FINDINGS: Ventricles of normal size. There is no mass effect nor midline shift. There is no sign of intracranial hemorrhage. The calvarium is intact. The cervical vertebra have normal spacing and alignment. Posterior elements are intact. Facet joints appear normal. Skull base is intact. IMPRESSION: Normal CT scan of the brain. Normal CT scan of the cervical spine.
--- NOTE | 2017-09-01 17:38 | CT ---
EXAMINATION TYPE: CT facial bones wo con DATE OF EXAM: 09/01/2017 COMPARISON: HISTORY: Patient complains of nausea, left periorbital contusion, and redness of left orbit possibly from an object, post trauma. CT DLP: 385.7 mGycm Automated exposure control for dose reduction was used. TECHNIQUE: CT scan of the sinuses is performed without contrast, axial images are obtained, coronal r eformatted images are also reviewed. FINDINGS: The orbital margins are intact. There is no evidence of a blowout fracture. There is fairly normal aeration of the paranasal sinuses. I see no bony destructive process. There is small fluid le cipriano in the right maxillary sinus. Maxilla is intact. Zygomatic arches appear normal. There is strabis mus noted. IMPRESSION: Fluid level in the right maxillary sinus consistent with minimal sinusitis. Strabismus. N o fracture seen.
== END 2017-09-01 18:19 | disposition home or self-care (01) ==
LOC: EC 16:09
DX: S09.90XA Unspecified injury of head, initial encounter (principal); H11.32 Conjunctival hemorrhage, left eye; H72.92 Unspecified perforation of tympanic membrane, left ear; M79.7 Fibromyalgia; F17.200 Nicotine dependence, unspecified, uncomplicated; Z79.899 Other long term (current) drug therapy; Z88.1 Allergy status to other antibiotic agents; Z88.5 Allergy status to narcotic agent; Z91.040 Latex allergy status; Z91.09 Other allergy status, other than to drugs and biological substances; Z88.8 Allergy status to other drugs, medicaments and biological substances; W22.01XA Walked into wall, initial encounter; Y93.83 Activity, rough housing and horseplay; Y92.009 Unspecified place in unspecified non-institutional (private) residence as the place of occurrence of the external cause
CPT/HCPCS: 70450; 70486; 72125; 87081; 87430; 99284

== ENCOUNTER 2017-09-05 12:03 | Emergency (ER) | payer OTHER ==
[2017-09-05 12:22] VITALS: BP 107/65; PULSE 62; RESP 16; TEMP 98.5
[2017-09-05] MEDS ORDERED: traMADol 50 MG STARTER PACK 3 TAB BTL PO STA (12:31)
--- NOTE | 2017-09-05 12:32 | ED ---
ENT HPI - General Chief complaint: ENT Stated complaint: Ear Pain Time Seen by Provider: 09/05/17 12:24 Source: patient, RN notes reviewed Mode of arrival: ambulatory Limitations: no limitations - History of Present Illness Initial comments: 27-year-old female presents emergency Department with chief complaint of left ear pain. She's been having worsening ear pain last few days. Patient was seen here and was given amoxicillin and eardrops. She is eardrops are bothering her ears. She states that she has some pressure in that ear. Denies any headache or dizziness. Denies any difficulty swelling. - Related Data Home Medications Medication Instructions Recorded Confirmed Adalimumab [Humira Pen] 40 mg IM Q14D 09/28/13 12/24/16 Acetaminophen Tab [Tylenol Tab] 1,000 mg PO Q6HR PRN 08/30/16 12/24/16 Previous Rx's Medication Instructions Recorded Hydrocodone/Acetaminophen [[place] 1 tab PO Q6HR PRN #15 tab 12/24/16 5-325] Penicillin V Potassium [Pen Vee K] 500 mg PO QID #40 tablet 12/24/16 Permethrin 5% Cream [Elimite] 1 applic TOPICAL ONCE #60 gram 12/24/16 Amoxicillin 500 mg PO Q8H 10 Days capsule 09/01/17 Ofloxacin 0.3% Otic Soln [Floxin 10 drops LEFT EAR BID 10 Days ml 09/01/17 0.3% Otic Soln] Amoxicillin/Potassium Clav 1 tab PO Q12HR #20 tab 09/05/17 [Augmentin 875-125 Tablet] Allergies Allergy/AdvReac Type Severity Reaction Status Date / Time cat dander Allergy Swelling Verified 09/05/17 12:22 ciprofloxacin [From Cipro] Allergy Unknown Verified 09/05/17 12:22 ciprofloxacin HCl Allergy Unknown Verified 09/05/17 12:22 [From Cipro] codeine Allergy Unknown Verified 09/05/17 12:22 diphenhydramine HCl Allergy Unknown Verified 09/05/17 12:22 [From Benadryl] Latex, Natural Rubber Allergy Unknown Verified 09/05/17 12:22 meperidine HCl [From Demerol] Allergy Unknown Verified 09/05/17 12:22 morphine Allergy Unknown Verified 09/05/17 12:22 metronidazole [From Flagyl] AdvReac Unknown Verified 09/05/17 12:22 Review of Systems ROS Statement: Those systems with pertinent positive or pertinent negative responses have been documented in the HPI. ROS Other: All systems not noted in ROS Statement are negative. 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 Ileal pouch and anal anastomosis in September 2010. Past Anesthesia/Blood Transfusion Reactions: No Reported Reaction Past Psychological History: Anxiety, Bipolar, Depression Smoking Status: Current every day smoker Past Alcohol Use History: None Reported Past Drug Use History: Marijuana - Past Family History Father Family Medical History: Unable to Obtain Additional Family Medical History / Comment(s): Father is 54 years of age and has a problem with alcoholism. Mother Additional Family Medical History / Comment(s): Mother is in her 50s and has mental health issues as well as treatment currently for cat scratch fever. Brother(s) Additional Family Medical History / Comment(s): Patient has 2 brothers one has problems with IBS and one has anger management issues. Patient does not have any sisters. She does not have any children of her own. She states there was a grandmother with Crohn's disease. General Exam Limitations: no limitations General appearance: alert, in no apparent distress Head exam: Present: atraumatic, normocephalic, normal inspection Eye exam: Present: normal appearance, PERRL, EOMI. Absent: scleral icterus, conjunctival injection, periorbital swelling ENT exam: Present: normal oropharynx, mucous membranes moist, normal external ear exam, other (No mastoid tenderness). Absent: TM's normal bilaterally (Left TM erythematous, mild fluid) Neck exam: Present: normal inspection, full ROM. Absent: tenderness, meningismus, lymphadenopathy Respiratory exam: Present: normal lung sounds bilaterally. Absent: respiratory distress, wheezes, rales, rhonchi, stridor Cardiovascular Exam: Present: regular rate, normal rhythm, normal heart sounds. Absent: systolic murmur, diastolic murmur, rubs, gallop, clicks Course Vital Signs 09/05/17 12:21 Temperature 98.5 F Pulse Rate 62 Respiratory 16 Rate Blood Pressure 107/65 O2 Sat by Pulse 100 Oximetry Medical Decision Making - Medical Decision Making 27-year-old female presented for left ear pain. Patient was started on Augmentin at this time. Patient's advised to stop her ofloxacin eardrops as there is no evidence of otitis externa. Patient will follow-up with ENT if no improvement. Disposition Clinical Impression: Otitis media Disposition: HOME SELF-CARE Condition: Stable Instructions: Earache (ED) Additional Instructions: Please return to the Emergency Department if symptoms worsen or any other concerns. Prescriptions: Amoxicillin/Potassium Clav [Augmentin 875-125 Tablet] 1 tab PO Q12HR #20 tab Is patient prescribed a controlled substance at d/c from ED?: No Referrals: Edward Andujar MD [STAFF PHYSICIAN] - 1-2 days Time of Disposition: 12:31
== END 2017-09-05 12:42 | disposition home or self-care (01) ==
LOC: EC 12:03
DX: H66.92 Otitis media, unspecified, left ear (principal); M79.7 Fibromyalgia; K50.90 Crohn's disease, unspecified, without complications; F17.200 Nicotine dependence, unspecified, uncomplicated; Z88.1 Allergy status to other antibiotic agents; Z88.5 Allergy status to narcotic agent; Z88.8 Allergy status to other drugs, medicaments and biological substances; Z91.040 Latex allergy status; Z91.09 Other allergy status, other than to drugs and biological substances; Z79.899 Other long term (current) drug therapy
CPT/HCPCS: 99282

== ENCOUNTER 2018-02-23 17:14 | Emergency (ER) | payer OTHER ==
[2018-02-23 17:34] VITALS: TEMP 98.4
[2018-02-23] MEDS ORDERED: SODIUM CHLORIDE 0.9% 1,000 ML IV STA (17:39)
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
[2018-02-23 18:24] LABS: Basophils % (A) 1 %; Eosinophils # (A) 0.2 k/uL (0-0.7); Eosinophils % (A) 3 %; HCT 37.8 % (34.0-46.0); HGB 12.3 gm/dL (11.4-16.0); Lymphocytes # (A) 1.5 k/uL (1.0-4.8); Lymphocytes % (A) 22 %; MCH 31.9 pg (25.0-35.0); MCHC 32.5 g/dL (31.0-37.0); MCV 98.3 fL (80.0-100.0); Mean Platelet Volume 7.4; Monocytes # (A) 0.4 k/uL (0-1.0); Monocytes % (A) 6 %; Neutrophils # (A) 4.7 k/uL (1.3-7.7); Neutrophils % (A) 67 %; Platelet Count 248 k/uL (150-450); RBC 3.85 m/uL (3.80-5.40); RDW 13.2 % (11.5-15.5); WBC 6.9 k/uL (3.8-10.6)
--- NOTE | 2018-02-23 18:28 | XR ---
EXAMINATION TYPE: XR chest 2V DATE OF EXAM: 02/23/2018 COMPARISON: 06/29/2011 HISTORY: Chest pain TECHNIQUE: Frontal and lateral views of the chest are obtained. FINDINGS: Heart and mediastinum are normal. Lungs are clear. Diaphragm is normal. Bony thorax appear s normal. IMPRESSION: Normal chest. There is clearing of the pulmonary infiltrates and pleural fluid compared to old exam.
[2018-02-23 18:47] LABS: ALT 21 U/L (9-52); AST 19 U/L (14-36); Albumin 3.8 g/dL (3.5-5.0); Alkaline Phosphatase 51 U/L (38-126); Anion Gap 8 mmol/L; Blood Urea Nitrogen 13 mg/dL (7-17); Calcium 8.9 mg/dL (8.4-10.2); Carbon Dioxide 22 mmol/L (22-30); Chloride 110 mmol/L (98-107); Glucose 76 mg/dL (74-99); Magnesium 1.7 mg/dL (1.6-2.3); Potassium 4.6 mmol/L (3.5-5.1); Sodium 140 mmol/L (137-145); Total Bilirubin 0.1 mg/dL (0.2-1.3); Total Protein 6.4 g/dL (6.3-8.2)
[2018-02-23 20:16] VITALS: BP 95/64; PULSE 73; RESP 16
== END 2018-02-23 20:16 | disposition home or self-care (01) ==
LOC: EC 17:14
DX: R00.2 Palpitations (principal); R07.9 Chest pain, unspecified; E86.0 Dehydration; I47.1 Supraventricular tachycardia; F17.200 Nicotine dependence, unspecified, uncomplicated; Z98.890 Other specified postprocedural states; Z79.899 Other long term (current) drug therapy; Z91.048 Other nonmedicinal substance allergy status; Z88.1 Allergy status to other antibiotic agents; Z88.5 Allergy status to narcotic agent; Z88.8 Allergy status to other drugs, medicaments and biological substances; Z91.040 Latex allergy status
CPT/HCPCS: 36415; 71046; 80053; 83735; 85025; 93005; 96360; 99285

== ENCOUNTER 2018-06-29 16:48 | Emergency (ER) | payer OTHER ==
[2018-06-29 17:38] VITALS: RESP 18; TEMP 99.1
[2018-06-29] MEDS ORDERED: IOPAMIDOL-300 CONTRAST 30 ML VIAL (ORAL USE) PO PRN (17:54)
[2018-06-29] MEDS ORDERED: SODIUM CHLORIDE 0.9% 1,000 ML IV ONE ×2 (18:01→20:30)
[2018-06-29] MEDS ORDERED: PROMETHAZINE INJ 25 MG in SODIUM CHLORIDE 0.9% 50 ML IVPB STA (19:19)
[2018-06-29 19:24] LABS: Basophils % (A) 0 %; Eosinophils # (A) 0.3 k/uL (0-0.7); Eosinophils % (A) 3 %; HCT 39.2 % (34.0-46.0); HGB 12.9 gm/dL (11.4-16.0); Lymphocytes # (A) 1.1 k/uL (1.0-4.8); Lymphocytes % (A) 13 %; MCH 32.7 pg (25.0-35.0); MCHC 32.9 g/dL (31.0-37.0); MCV 99.4 fL (80.0-100.0); Mean Platelet Volume 7.7; Monocytes # (A) 0.5 k/uL (0-1.0); Monocytes % (A) 6 %; Neutrophils # (A) 6.4 k/uL (1.3-7.7); Neutrophils % (A) 76 %; Platelet Count 212 k/uL (150-450); RBC 3.94 m/uL (3.80-5.40); RDW 13.3 % (11.5-15.5); WBC 8.4 k/uL (3.8-10.6)
[2018-06-29 19:33] LABS: ALT 14 U/L (9-52); AST 20 U/L (14-36); Albumin 4.1 g/dL (3.5-5.0); Alkaline Phosphatase 55 U/L (38-126); Anion Gap 9 mmol/L; Blood Urea Nitrogen 5 mg/dL (7-17); Calcium 9.2 mg/dL (8.4-10.2); Carbon Dioxide 22 mmol/L (22-30); Chloride 108 mmol/L (98-107); Glucose 97 mg/dL (74-99); Sodium 139 mmol/L (137-145); Total Bilirubin 0.3 mg/dL (0.2-1.3); Total Protein 6.4 g/dL (6.3-8.2)
--- NOTE | 2018-06-29 20:40 | CT ---
EXAMINATION TYPE: CT abdomen pelvis w con DATE OF EXAM: 06/29/2018 COMPARISON: CT 06/22/2014 HISTORY: abdominal pain, nausea, hx of Crohns. CT DLP: 613.4 mGycm Automated exposure control for dose reduction was used. TECHNIQUE: Helical acquisition of images was performed from the lung bases through the pelvis. CONTRAST: Performed without Oral Contrast and with IV Contrast, patient injected with 100 mL of Isovu e 300. FINDINGS: LUNG BASES: No acute process. LIVER/GB: No significant abnormality is appreciated. PANCREAS: No significant abnormality is seen. SPLEEN: No significant abnormality is seen. ADRENALS: No significant abnormality is seen. KIDNEYS: No significant abnormality is seen. PERITONEAL CAVITY: No pneumoperitoneum. There is a moderate volume of free peritoneal fluid, seen de pendently within the pelvis. RETROPERITONEAL ADENOPATHY: None visualized BOWEL: No bowel obstruction. No significant abnormality is seen. URINARY BLADDER: No significant abnormality is seen. PELVIC ADENOPATHY: None visualized. REPRODUCTIVE ORGANS: There is a 5 x 4 x 4 cm smoothly marginated left adnexal cystic mass, presumably representing functional ovarian cyst. This can be proved with two-week or 4 week pelvic Doppler ultr asound. This finding is associated with a moderate volume of free peritoneal fluid seen dependently w ithin the pelvis. OSSEOUS STRUCTURES: No significant abnormality is seen. OTHER: No acute vascular findings. IMPRESSION: 1) 5 CM LEFT ADNEXAL CYST, WITH TWO-WEEK OR 6 WEEK FOLLOW-UP PELVIC DOPPLER ULTRASOUND IS ADVISED. 2) MODERATE VOLUME PERITONEAL FLUID WITHIN THE LOWER PELVIS.
[2018-06-29 21:14] LABS: Appearance,Urine Clear (Clear); Bilirubin,Urine Negative (Negative); Blood,Urine Negative (Negative); Color,Urine Yellow; Glucose,Urine (UA) Negative (Negative); Ketones,Urine Negative (Negative); Leukocyte Esterase,Urine Negative (Negative); Nitrite,Urine Negative (Negative); Protein,Urine Negative (Negative); Urobilinogen,Urine <2.0 mg/dL (<2.0)
[2018-06-29 21:27] VITALS: BP 107/65; PULSE 65
--- NOTE | 2018-06-29 22:03 | US ---
EXAMINATION TYPE: US transvaginal DATE OF EXAM: 06/29/2018 COMPARISON: CT scan 06/29/2018 at 8:03 PM CLINICAL HISTORY: Pain. Pain f/u to ct scan. TECHNIQUE: Transvaginal (TV). Date of LMP: 06/13/2018 EXAM MEASUREMENTS: Uterus: 7.6 x 3.4 x 5.0 cm Endometrial Stripe: 1.0 cm Right Ovary: 2.5 x 1.6 x 3.6 cm Left Ovary: 4.9 x 3.6 x 3.8 cm 1. Uterus: Anteverted wnl 2. Endometrium: wnl 3. Right Ovary: Follicles seen 4. Left Ovary: Hypoechoic cyst-like smoothly-marginated mass with posterior wall enhancement and thr ough sound transmission measures approximately 3.4 x 3.0 x 2.6cm. There is a homogeneous pattern of l ow level echoes throughout this lesion. Differential includes functional ovarian cyst and endometriom a. Two-week or six-week follow-up pelvic Doppler ultrasound can further characterize and delineate th e differential diagnosis. Spectral, color and waveform doppler imaging shows good arterial and venous flow within the ovaries ; there is no evidence for ovarian torsion. 5. Bilateral Adnexa: wnl 6. Posterior cul-de-sac: Moderate volume fluid seen. IMPRESSION: 1. Moderate volume of cul-de-sac fluid. 2. Left ovarian hypoechoic cyst-like mass, as discussed.
--- NOTE | 2018-06-29 22:12 | ED ---
Abdominal Pain HPI - General Chief Complaint: Abdominal Pain Stated Complaint: poss Crohn's flare Source: patient Mode of arrival: ambulatory Limitations: no limitations - History of Present Illness Initial Comments: 28-year-old female presenting today for chief complaint of abdominal pain. Patient says she's had mild right-sided lower abdominal cramping for the past 2 days. Patient states she has history of Crohn's on make sure there is no complicated process. Patient has a J-pouch. Patient is followed by stripper preliminary at [facility]. Patient states she has also had vomiting and diarrhea patient states she is not as concerned with the pain and she has the vomiting and diarrhea. She is not sure if this is related to her eating fried chicken just prior to onset of symptoms. 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 Patient denies fever chills night sweats she denies melena or hematochezia. Patient has any hematemesis. Patient states she has been able to eat and drink. Patient denies A changes in urination. Remaining review of systems negative, Patient denies any recent shortness of breath, chest pain, back pain, numbness or tingling, dysuria or hematuria, constipation, headaches or visual changes, or any other complaints. upon arrival patient appears well there are no signs of acute distress. - Related Data Home Medications Medication Instructions Recorded Confirmed Loperamide [Imodium] 6 mg PO DAILY 02/23/18 06/29/18 Loratadine 10 mg PO DAILY 02/23/18 06/29/18 Acetaminophen [Tylenol] 1,000 mg PO Q4-6H PRN 06/29/18 06/29/18 Adalimumab [Humira Pediatric] 40 mg SQ Q14D 06/29/18 06/29/18 Allergies Allergy/AdvReac Type Severity Reaction Status Date / Time cat dander Allergy Swelling Verified 06/29/18 18:21 ciprofloxacin [From Cipro] Allergy Unknown Verified 06/29/18 18:21 ciprofloxacin HCl Allergy Unknown Verified 06/29/18 18:21 [From Cipro] codeine Allergy Unknown Verified 06/29/18 18:21 diphenhydramine HCl Allergy Unknown Verified 06/29/18 18:21 [From Benadryl] Latex, Natural Rubber Allergy Unknown Verified 06/29/18 18:21 meperidine HCl [From Demerol] Allergy Unknown Verified 06/29/18 18:21 morphine Allergy Unknown Verified 06/29/18 18:21 metronidazole [From Flagyl] AdvReac Unknown Verified 06/29/18 18:21 Review of Systems ROS Statement: Those systems with pertinent positive or pertinent negative responses have been documented in the HPI. ROS Other: All systems not noted in ROS Statement are negative. 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 Ileal pouch and anal anastomosis in September 2010. Past Anesthesia/Blood Transfusion Reactions: No Reported Reaction Past Psychological History: Anxiety, Bipolar, Depression Smoking Status: Current every day smoker Past Alcohol Use History: None Reported Past Drug Use History: Marijuana - Past Family History Father Family Medical History: Unable to Obtain Additional Family Medical History / Comment(s): Father is 54 years of age and has a problem with alcoholism. Mother Additional Family Medical History / Comment(s): Mother is in her 50s and has mental health issues as well as treatment currently for cat scratch fever. Brother(s) Additional Family Medical History / Comment(s): Patient has 2 brothers one has problems with IBS and one has anger management issues. Patient does not have any sisters. She does not have any children of her own. She states there was a grandmother with Crohn's disease. General Exam - General Exam Comments Initial Comments: General: The patient is awake and alert, in no distress, and does not appear acutely ill. Eye: +3 mm pupils are equal, round and reactive to light, extra-ocular move ments are intact. No nystagmus. There is normal conjunctiva bilaterally. No signs of icterus. Ears, nose, mouth and throat: There are moist mucous membranes and no oral lesions. Neck: The neck is supple, there is no tenderness or JVD. Cardiovascular: There is a regular rate and rhythm. No murmur, rub or gallop is appreciated. Respiratory: Lungs are clear to auscultation, respirations are non-labored, breath sounds are equal. No wheezes, stridor, rales, or rhonchi. Gastrointestinal: Soft, non-distended, non-tender abdomen without masses or organomegaly noted. There is no rebound or guarding present. No CVA tenderness. Bowel sounds are unremarkable. Musculoskeletal: Normal ROM, no tenderness. Strength 5/5. Sensation intact. P ulses equal bilaterally 2+. Neurological: A&O x 3. CN II-XII intact, There are no obvious motor or sensory deficits. Coordination appears grossly intact. Speech is normal. Skin: Skin is warm and dry and no rashes or lesions are noted. Psychiatric: Cooperative, appropriate mood & affect, normal judgment. Limitations: no limitations Course Vital Signs 06/29/18 06/29/18 17:34 21:26 Temperature 99.1 F Pulse Rate 96 65 Respiratory 18 18 Rate Blood Pressure 111/66 107/65 O2 Sat by Pulse 97 99 Oximetry Medical Decision Making - Medical Decision Making Well-appearing 28-year-old female presented for vomiting diarrhea. She states symptoms began shortly to 3 days ago after ingesting fried chicken. Patient is not sure if this is associated. Or if this is a complication from Crohn's. She states she typically does not have vomiting with Crohn's flares. Patient states she is having bowel movements however this is diarrhea. She denies any blood in the stools. Abdominal exam revealed very mild tenderness of the left lower abdomen. Remaining abdominal exam benign. No rigidity no guarding no signs of peritoneal irritation. Patient appears well no signs acute distress. On examination. CT with contrast revealed no acute abnormalities of the abdomen pelvic. There was a 5cm adnexal cyst. US revealed redemonstration of the cyst with free fluid in abdomen, no torsion. Pt was instructed to follow-up in 2 weeks for all children as well as a 6 week ultrasound. Patient is agreeable with this plan. Laboratory studies unremarkable. No leukocytosis. This time feel patient is stable for discharge most likely patient has a viral syndrome or infection due to food, causing her symptoms of vomiting and diarrhea. Patient is given strict return parameters for any worsening symptoms. Patient verbalized understanding. Patient is agreeable to outpatient follow-up. Discussed case attending provider who is agreeable with plan. - Lab Data Result diagrams: 06/29/18 19:10 06/29/18 19:10 Lab Results 06/29/18 06/29/18 06/29/18 Range/Units 19:10 19:10 19:10 WBC 8.4 (3.8-10.6) k/uL RBC 3.94 (3.80-5.40) m/uL Hgb 12.9 (11.4-16.0) gm/dL Hct 39.2 (34.0-46.0) % MCV 99.4 (80.0-100.0) fL MCH 32.7 (25.0-35.0) pg MCHC 32.9 (31.0-37.0) g/dL RDW 13.3 (11.5-15.5) % Plt Count 212 (150-450) k/uL Neutrophils % 76 % Lymphocytes % 13 % Monocytes % 6 % Eosinophils % 3 % Basophils % 0 % Neutrophils # 6.4 (1.3-7.7) k/uL Lymphocytes # 1.1 (1.0-4.8) k/uL Monocytes # 0.5 (0-1.0) k/uL Eosinophils # 0.3 (0-0.7) k/uL Basophils # 0.0 (0-0.2) k/uL Sodium 139 (137-145) mmol/L Potassium 4.0 (3.5-5.1) mmol/L Chloride 108 H (98-107) mmol/L Carbon Dioxide 22 (22-30) mmol/L Anion Gap 9 mmol/L BUN 5 L (7-17) mg/dL Creatinine 0.52 (0.52-1.04) mg/dL Est GFR (CKD-EPI)AfAm >90 (>60 ml/min/1.73 sqM) Est GFR (CKD-EPI)NonAf >90 (>60 ml/min/1.73 sqM) Glucose 97 (74-99) mg/dL Plasma Lactic Acid Chris 1.2 (0.7-2.0) mmol/L Calcium 9.2 (8.4-10.2) mg/dL Total Bilirubin 0.3 (0.2-1.3) mg/dL AST 20 (14-36) U/L ALT 14 (9-52) U/L Alkaline Phosphatase 55 (38-126) U/L Total Protein 6.4 (6.3-8.2) g/dL Albumin 4.1 (3.5-5.0) g/dL Urine Color Urine Appearance (Clear) Urine pH (5.0-8.0) Ur Specific Sumpter (1.001-1.035) Urine Protein (Negative) Urine Glucose (UA) (Negative) Urine Ketones (Negative) Urine Blood (Negative) Urine Nitrite (Negative) Urine Bilirubin (Negative) Urine Urobilinogen (<2.0) mg/dL Ur Leukocyte Esterase (Negative) 06/29/18 Range/Units 20:20 WBC (3.8-10.6) k/uL RBC (3.80-5.40) m/uL Hgb (11.4-16.0) gm/dL Hct (34.0-46.0) % MCV (80.0-100.0) fL MCH (25.0-35.0) pg MCHC (31.0-37.0) g/dL RDW (11.5-15.5) % Plt Count (150-450) k/uL Neutrophils % % Lymphocytes % % Monocytes % % Eosinophils % % Basophils % % Neutrophils # (1.3-7.7) k/uL Lymphocytes # (1.0-4.8) k/uL Monocytes # (0-1.0) k/uL Eosinophils # (0-0.7) k/uL Basophils # (0-0.2) k/uL Sodium (137-145) mmol/L Potassium (3.5-5.1) mmol/L Chloride (98-107) mmol/L Carbon Dioxide (22-30) mmol/L Anion Gap mmol/L BUN (7-17) mg/dL Creatinine (0.52-1.04) mg/dL Est GFR (CKD-EPI)AfAm (>60 ml/min/1.73 sqM) Est GFR (CKD-EPI)NonAf (>60 ml/min/1.73 sqM) Glucose (74-99) mg/dL Plasma Lactic Acid Chris (0.7-2.0) mmol/L Calcium (8.4-10.2) mg/dL Total Bilirubin (0.2-1.3) mg/dL AST (14-36) U/L ALT (9-52) U/L Alkaline Phosphatase (38-126) U/L Total Protein (6.3-8.2) g/dL Albumin (3.5-5.0) g/dL Urine Color Yellow Urine Appearance Clear (Clear) Urine pH 6.0 (5.0-8.0) Ur Specific Sumpter 1.050 H (1.001-1.035) Urine Protein Negative (Negative) Urine Glucose (UA) Negative (Negative) Urine Ketones Negative (Negative) Urine Blood Negative (Negative) Urine Nitrite Negative (Negative) Urine Bilirubin Negative (Negative) Urine Urobilinogen <2.0 (<2.0) mg/dL Ur Leukocyte Esterase Negative (Negative) Disposition Clinical Impression: Abdominal pain, Ovarian cyst Disposition: HOME SELF-CARE Condition: Good Instructions (If sedation given, give patient instructions): Abdominal Pain (ED) Additional Instructions: Please use medication as discussed. Please follow-up with family doctor in the next 2 days , I recommend both a 2 week and 6 week US of the pelvis. OBGYN f/u within next 1-2 weeks. Please return to emergency room if the symptoms increase or worsen or for any other concerns. Is patient prescribed a controlled substance at d/c from ED?: No Referrals: None,Stated [Primary Care Provider] - 1-2 days [facility] [NON-STAFF] - 1-2 days Negrita Salas DO [Doctor of Osteopathic Medicine] - 1-2 days Time of Disposition: 22:12
== END 2018-06-29 22:32 | disposition home or self-care (01) ==
LOC: EC 16:48
DX: N83.202 Unspecified ovarian cyst, left side (principal); R11.10 Vomiting, unspecified; R19.7 Diarrhea, unspecified; K50.90 Crohn's disease, unspecified, without complications; F17.200 Nicotine dependence, unspecified, uncomplicated; Z90.49 Acquired absence of other specified parts of digestive tract; Z93.2 Ileostomy status; Z98.890 Other specified postprocedural states; Z79.899 Other long term (current) drug therapy; Z88.1 Allergy status to other antibiotic agents; Z88.5 Allergy status to narcotic agent; Z88.8 Allergy status to other drugs, medicaments and biological substances; Z91.040 Latex allergy status; Z91.048 Other nonmedicinal substance allergy status
CPT/HCPCS: 36415; 80053; 83605; 85025; 81003; 87086; 93975; 76830; 74177; 99284; 96365; 96361; J2550; Q9967

== ENCOUNTER 2018-07-15 16:32 | Emergency (ER) | payer OTHER ==
[2018-07-15] MEDS ORDERED: SODIUM CHLORIDE 0.9% 1,000 ML IV STA (17:37)
[2018-07-15 18:27] LABS: Basophils # (A) 0.1 k/uL (0-0.2); Basophils % (A) 1 %; Eosinophils # (A) 0.2 k/uL (0-0.7); Eosinophils % (A) 2 %; HCT 42.7 % (34.0-46.0); HGB 13.9 gm/dL (11.4-16.0); Lymphocytes # (A) 1.9 k/uL (1.0-4.8); Lymphocytes % (A) 21 %; MCH 31.6 pg (25.0-35.0); MCHC 32.6 g/dL (31.0-37.0); MCV 96.9 fL (80.0-100.0); Mean Platelet Volume 7.2; Monocytes # (A) 0.4 k/uL (0-1.0); Monocytes % (A) 4 %; Neutrophils # (A) 6.3 k/uL (1.3-7.7); Neutrophils % (A) 70 %; Platelet Count 329 k/uL (150-450); RDW 14.5 % (11.5-15.5)
[2018-07-15 18:35] LABS: Partial Thromboplastin Time 25.4 sec (22.0-30.0); Prothrombin Time 10.2 sec (9.0-12.0)
[2018-07-15 18:38] LABS: Anion Gap 8 mmol/L; Blood Urea Nitrogen 9 mg/dL (7-17); Carbon Dioxide 25 mmol/L (22-30); Chloride 106 mmol/L (98-107); Glucose 84 mg/dL (74-99); Potassium 4.5 mmol/L (3.5-5.1); Sodium 139 mmol/L (137-145)
[2018-07-15 18:39] LABS: ALT 21 U/L (9-52); AST 22 U/L (14-36); Albumin 4.6 g/dL (3.5-5.0); Alkaline Phosphatase 78 U/L (38-126); Calcium 10.1 mg/dL (8.4-10.2); Magnesium 1.7 mg/dL (1.6-2.3); Total Bilirubin 0.3 mg/dL (0.2-1.3); Total Protein 7.4 g/dL (6.3-8.2)
--- NOTE | 2018-07-15 19:14 | ED ---
Chest Pain HPI - General Chief Complaint: Chest Pain Stated Complaint: Chest pain Time Seen by Provider: 07/15/18 17:00 Source: patient Mode of arrival: ambulatory Limitations: no limitations - History of Present Illness Initial Comments: 28-year-old female patient with past medical history significant for supraventricular tachycardia presents to the emergency department today for evaluation after she had an episode of palpitations, racing heart, and near syncope while riding a bicycle. Patient states she was riding her bike to work when she suddenly became dizzy, had white vision, and palpitations. Patient states after the episode resolved and she felt quite weak so she should present here for further evaluation. Patient states she did have a mild headache with this. She states that symptoms have improved however she is still having intermittent chest pains. She describes the pain is sharp in nature. Denies any radiation of the pain through to her back. Denies any nausea or vomiting. Patient states she has had cardiac ablation in the past which seemed to have resolved her SVT. She denies any chance of . States she also has sore throat and cough that started today, states she has been exposed to strep. Patient denies any recent rash, fever, chills, abdominal pain, diarrhea, constipation, back pain, numbness, tingling, weakness, hematuria, dysuria, urinary urgency, urinary frequency, headache, visual changes, or any other complaints. - Related Data Home Medications Medication Instructions Recorded Confirmed Loperamide [Imodium] 6 mg PO DAILY 02/23/18 07/15/18 Loratadine 10 mg PO DAILY 02/23/18 07/15/18 Acetaminophen [Tylenol] 1,000 mg PO Q4-6H PRN 06/29/18 07/15/18 Adalimumab [Humira Pediatric] 40 mg SQ Q14D 06/29/18 07/15/18 Allergies Allergy/AdvReac Type Severity Reaction Status Date / Time cat dander Allergy Swelling Verified 07/15/18 16:57 ciprofloxacin [From Cipro] Allergy Unknown Verified 07/15/18 16:57 ciprofloxacin HCl Allergy Unknown Verified 07/15/18 16:57 [From Cipro] codeine Allergy Unknown Verified 07/15/18 16:57 diphenhydramine HCl Allergy Unknown Verified 07/15/18 16:57 [From Benadryl] Latex, Natural Rubber Allergy Unknown Verified 07/15/18 16:57 meperidine HCl [From Demerol] Allergy Unknown Verified 07/15/18 16:57 morphine Allergy Unknown Verified 07/15/18 16:57 acetaminophen [From Vicodin] AdvReac Nausea Verified 07/15/18 16:57 hydrocodone [From Vicodin] AdvReac Nausea Verified 07/15/18 16:57 metronidazole [From Flagyl] AdvReac Unknown Verified 07/15/18 16:57 Review of Systems ROS Statement: Those systems with pertinent positive or pertinent negative responses have been documented in the HPI. ROS Other: All systems not noted in ROS Statement are negative. EKG Findings - EKG Comments: EKG Findings:: EKG obtained at 1714 shows normal sinus rhythm with a ventricular rate of 68, PA interval 132,, QRS duration 84, QTC 418, QTC 444. No evidence of ST elevation or depression. 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 Ileal pouch and anal anastomosis in September 2010. Past Anesthesia/Blood Transfusion Reactions: No Reported Reaction Past Psychological History: Anxiety, Bipolar, Depression Smoking Status: Never smoker Past Alcohol Use History: None Reported Past Drug Use History: Marijuana - Past Family History Father Family Medical History: Unable to Obtain Additional Family Medical History / Comment(s): Father is 54 years of age and has a problem with alcoholism. Mother Additional Family Medical History / Comment(s): Mother is in her 50s and has mental health issues as well as treatment currently for cat scratch fever. Brother(s) Additional Family Medical History / Comment(s): Patient has 2 brothers one has problems with IBS and one has anger management issues. Patient does not have any sisters. She does not have any children of her own. She states there was a grandmother with Crohn's disease. General Exam Limitations: no limitations General appearance: alert, in no apparent distress, other (Physical well- developed, well-nourished adult female patient in no acute distress. Vital signs upon presentation are temperature 98.9F, pulse 61, respirations 18, blood pressure 105/74, pulse ox 100% on room air.) Eye exam: Present: normal appearance, PERRL, EOMI. Absent: scleral icterus, conjunctival injection, periorbital swelling ENT exam: Present: normal exam, normal oropharynx, mucous membranes moist Respiratory exam: Present: normal lung sounds bilaterally. Absent: respiratory distress, wheezes, rales, rhonchi, stridor Cardiovascular Exam: Present: regular rate, normal rhythm, normal heart sounds. Absent: systolic murmur, diastolic murmur, rubs, gallop, clicks GI/Abdominal exam: Present: soft, normal bowel sounds. Absent: distended, tenderness, guarding, rebound, rigid Neurological exam: Present: alert, oriented X3, CN II-XII intact, other (Strength in all 4 remedies is 5/5.) Psychiatric exam: Present: normal affect, normal mood Skin exam: Present: warm, dry, intact, normal color. Absent: rash Course Vital Signs 07/15/18 07/15/18 07/15/18 16:36 17:20 19:00 Temperature 98.9 F Pulse Rate 61 68 82 Respiratory 18 18 18 Rate Blood Pressure 105/74 101/71 99/66 O2 Sat by Pulse 100 100 100 Oximetry 07/15/18 07/15/18 19:27 20:32 Temperature 98.2 F 98.2 F Pulse Rate 65 73 Respiratory 14 14 Rate Blood Pressure 96/77 97/80 O2 Sat by Pulse 99 97 Oximetry Chest Pain [facility] RADIOLOGY:Two-view x-ray of the chest is obtained. Report was reviewed in its entirety. Impression by Dr. Isidro shows normal chest with no change. MDM: 28-year-old female patient with past medical history significant for SVT presents to the emergency department today for evaluation of chest discomfort, near-syncope, palpitations riding her bike to work. Physical examination is unremarkable. Lungs are clear to auscultation with good air movement. Patient was normal sinus rhythm on the heart monitor throughout visit here in the emergency department. Labs reviewed and did reveal evidence of hyperthyroid but T4 levels were within normal ranges. All other labs were unremarkable. EKG showed normal sinus rhythm. Chest x-ray shows no acute cardio pulmonary process. I did discuss findings and results with the patient. Did discuss follow-up with her primary care physician for Holter monitor application. She is advised not to ride a bike or discharge is activity until cleared by her physician. Return parameters were discussed in detail. She verbalizes understanding and agrees this plan. Disposition Clinical Impression: Palpitations Disposition: HOME SELF-CARE Condition: Good Instructions (If sedation given, give patient instructions): Heart Palpitations (ED) Additional Instructions: Follow-up with your primary care physician for recheck as soon as possible. Discuss application of a Holter monitor. Avoid strenuous physical activity until cleared by her doctor. Return to the emergency department immediately for any new, worsening, or concerning symptoms. Is patient prescribed a controlled substance at d/c from ED?: No Referrals: None,Stated [Primary Care Provider] - 1-2 days Time of Disposition: 20:17
--- NOTE | 2018-07-15 19:25 | XR ---
EXAMINATION TYPE: XR chest 2V DATE OF EXAM: 07/15/2018 COMPARISON: 02/23/2018 HISTORY: Chest pain TECHNIQUE: Frontal and lateral views of the chest are obtained. FINDINGS: Heart and mediastinum are normal. Lungs are clear. Diaphragm is normal. There are chest le ads. Bony thorax is intact. IMPRESSION: Normal chest. No change.
[2018-07-15 19:28] VITALS: RESP 14; TEMP 98.2
[2018-07-15 19:32] LABS: T4, Free (Free Thyroxine) 1.06 ng/dL (0.78-2.19)
[2018-07-15 20:47] VITALS: BP 97/80; PULSE 73
== END 2018-07-15 20:32 | disposition home or self-care (01) ==
LOC: EC 16:32
DX: R00.2 Palpitations (principal); E05.90 Thyrotoxicosis, unspecified without thyrotoxic crisis or storm; R07.89 Other chest pain; R55 Syncope and collapse; R51 Headache; J02.9 Acute pharyngitis, unspecified; R05 Cough; R53.1 Weakness; K50.90 Crohn's disease, unspecified, without complications; Z88.1 Allergy status to other antibiotic agents; Z88.5 Allergy status to narcotic agent; Z88.6 Allergy status to analgesic agent; Z88.8 Allergy status to other drugs, medicaments and biological substances; Z91.040 Latex allergy status; Z91.048 Other nonmedicinal substance allergy status; Z79.899 Other long term (current) drug therapy; Z86.79 Personal history of other diseases of the circulatory system; Z86.69 Personal history of other diseases of the nervous system and sense organs; Z98.890 Other specified postprocedural states
CPT/HCPCS: 36415; 71046; 80053; 81025; 83735; 84439; 84443; 84484; 85025; 85610; 85730; 87081; 87430; 93005; 99285

== ENCOUNTER 2018-08-18 19:12 | Inpatient (IN) | payer OTHER ==
[2018-08-18] MEDS ORDERED: PANTOPRAZOLE 40 MG/10 ML VIAL IVP STA (20:00)
[2018-08-18] MEDS ORDERED: SODIUM CHLORIDE 0.9% 1,000 ML IV STA ×2 (20:00)
[2018-08-18] MEDS ORDERED: ONDANSETRON 4 MG/2 ML VIAL IVP STA (20:00)
[2018-08-18] MEDS ORDERED: HYDROmorphone 1 MG/ML 1 ML SYRINGE IVP STA (20:01)
--- NOTE | 2018-08-18 20:01 | ED ---
Nausea/Vomiting/Diarrhea HPI - General Chief complaint: Nausea/Vomiting/Diarrhea Stated complaint: crohns/ poss fistula Time Seen by Provider: 08/18/18 19:58 Source: patient, RN notes reviewed, old records reviewed Mode of arrival: ambulatory Limitations: no limitations - History of Present Illness Initial comments: This is a 28-year-old female the ER for evaluation. Patient presented for nausea abdominal pain concern for fistula perianal perirectal fistula. has no significant drainage from the area. Patient states she has abdominal pain with nausea, denies recent drug or alcohol abuse. She has history of Crohn's is taking Crohn's medications as directed. No recent evaluation for Crohn's or admission. Surgery is significantly for J pouch MD complaint: nausea, abdominal pain -: days(s) Location: diffuse Radiation: none Severity: moderate Quality: stabbing, aching Consistency: constant Improves with: none Worsens with: none Associated Symptoms: denies other symptoms - Related Data Home Medications Medication Instructions Recorded Confirmed Loperamide [Imodium] 6 mg PO DAILY 02/23/18 08/18/18 Loratadine 10 mg PO DAILY 02/23/18 08/18/18 Adalimumab [Humira Pediatric] 40 mg SQ Q14D 06/29/18 08/18/18 Allergies Allergy/AdvReac Type Severity Reaction Status Date / Time cat dander Allergy Swelling Verified 08/18/18 20:42 ciprofloxacin [From Cipro] Allergy Unknown Verified 08/18/18 20:42 ciprofloxacin HCl Allergy Unknown Verified 08/18/18 20:42 [From Cipro] codeine Allergy Unknown Verified 08/18/18 20:42 diphenhydramine HCl Allergy Unknown Verified 08/18/18 20:42 [From Benadryl] Latex, Natural Rubber Allergy Unknown Verified 08/18/18 20:42 meperidine HCl [From Demerol] Allergy Unknown Verified 08/18/18 20:42 morphine Allergy Unknown Verified 08/18/18 20:42 acetaminophen [From Vicodin] AdvReac Nausea Verified 08/18/18 20:42 hydrocodone [From Vicodin] AdvReac Nausea Verified 08/18/18 20:42 metronidazole [From Flagyl] AdvReac Unknown Verified 08/18/18 20:42 Review of Systems ROS Statement: Those systems with pertinent positive or pertinent negative responses have been documented in the HPI. ROS Other: All systems not noted in ROS Statement are negative. 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 Ileal pouch and anal anastomosis in September 2010. Past Anesthesia/Blood Transfusion Reactions: No Reported Reaction Past Psychological History: Anxiety, Bipolar, Depression Smoking Status: Never smoker Past Alcohol Use History: None Reported Past Drug Use History: Marijuana - Past Family History Father Family Medical History: Unable to Obtain Additional Family Medical History / Comment(s): Father is 54 years of age and has a problem with alcoholism. Mother Additional Family Medical History / Comment(s): Mother is in her 50s and has mental health issues as well as treatment currently for cat scratch fever. Brother(s) Additional Family Medical History / Comment(s): Patient has 2 brothers one has problems with IBS and one has anger management issues. Patient does not have a [place] sisters. She does not have any children of her own. She states there was a grandmother with Crohn's disease. General Exam Limitations: no limitations General appearance: alert, in no apparent distress Head exam: Present: atraumatic, normocephalic, normal inspection Eye exam: Present: normal appearance, PERRL, EOMI. Absent: scleral icterus, conjunctival injection, periorbital swelling ENT exam: Present: normal exam, mucous membranes moist Neck exam: Present: normal inspection. Absent: tenderness, meningismus, lymphadenopathy Respiratory exam: Present: normal lung sounds bilaterally. Absent: respiratory distress, wheezes, rales, rhonchi, stridor Cardiovascular Exam: Present: regular rate, normal rhythm, normal heart sounds. Absent: systolic murmur, diastolic murmur, rubs, gallop, clicks GI/Abdominal exam: Present: soft, tenderness (Epigastric), normal bowel sounds. Absent: distended, guarding, rebound, rigid Extremities exam: Present: normal inspection, full ROM, normal capillary refill. Absent: tenderness, pedal edema, joint swelling, calf tenderness Back exam: Present: normal inspection Neurological exam: Present: alert, oriented X3, CN II-XII intact Psychiatric exam: Present: normal affect, normal mood Skin exam: Present: warm, dry, intact, normal color. Absent: rash Course Vital Signs 08/18/18 08/18/18 19:46 22:26 Temperature 98.7 F 98.0 F Pulse Rate 76 90 Respiratory 18 15 Rate Blood Pressure 109/71 121/76 O2 Sat by Pulse 99 100 Oximetry - Reevaluation(s) Reevaluation #1: 08/18/18 23:19 Medical records reviewed Reevaluation #2: 08/18/18 23:19 Pain is improved Medical Decision Making - Medical Decision Making 28 female the ER for evaluation concern for fistula abdominal pain. History of Crohn's and no history of panic otitis patient does have current pancreatitis, will admit for IV hydration and pain control, nothing by mouth - Lab Data Result diagrams: 08/18/18 20:27 08/18/18 20:27 Lab Results 08/18/18 08/18/18 08/18/18 Range/Units 19:54 20:27 20:27 WBC 7.3 (3.8-10.6) k/uL RBC 3.95 (3.80-5.40) m/uL Hgb 12.5 (11.4-16.0) gm/dL Hct 38.4 (34.0-46.0) % MCV 97.2 (80.0-100.0) fL MCH 31.7 (25.0-35.0) pg MCHC 32.7 (31.0-37.0) g/dL RDW 14.1 (11.5-15.5) % Plt Count 220 (150-450) k/uL Neutrophils % 57 % Lymphocytes % 33 % Monocytes % 5 % Eosinophils % 2 % Basophils % 1 % Neutrophils # 4.2 (1.3-7.7) k/uL Lymphocytes # 2.4 (1.0-4.8) k/uL Monocytes # 0.4 (0-1.0) k/uL Eosinophils # 0.1 (0-0.7) k/uL Basophils # 0.0 (0-0.2) k/uL Sodium 138 (137-145) mmol/L Potassium 4.4 (3.5-5.1) mmol/L Chloride 106 (98-107) mmol/L Carbon Dioxide 22 (22-30) mmol/L Anion Gap 10 mmol/L BUN 13 (7-17) mg/dL Creatinine 0.67 (0.52-1.04) mg/dL Est GFR (CKD-EPI)AfAm >90 (>60 ml/min/1.73 sqM) Est GFR (CKD-EPI)NonAf >90 (>60 ml/min/1.73 sqM) Glucose 92 (74-99) mg/dL Plasma Lactic Acid Chris (0.7-2.0) mmol/L Calcium 9.1 (8.4-10.2) mg/dL Total Bilirubin 0.2 (0.2-1.3) mg/dL AST 21 (14-36) U/L ALT 11 (9-52) U/L Alkaline Phosphatase 67 (38-126) U/L Total Protein 7.4 (6.3-8.2) g/dL Albumin 4.8 (3.5-5.0) g/dL Amylase 182 H (30-110) U/L Lipase 1172 H (23-300) U/L Urine Color Yellow Urine Appearance Clear (Clear) Urine pH 5.5 (5.0-8.0) Ur Specific [place] 1.029 (1.001-1.035) Urine Protein Trace H (Negative) Urine Glucose (UA) Negative (Negative) Urine Ketones Negative (Negative) Urine Blood Negative (Negative) Urine Nitrite Negative (Negative) Urine Bilirubin Negative (Negative) Urine Urobilinogen <2.0 (<2.0) mg/dL Ur Leukocyte Esterase Negative (Negative) 08/18/18 Range/Units 20:27 WBC (3.8-10.6) k/uL RBC (3.80-5.40) m/uL Hgb (11.4-16.0) gm/dL Hct (34.0-46.0) % MCV (80.0-100.0) fL MCH (25.0-35.0) pg MCHC (31.0-37.0) g/dL RDW (11.5-15.5) % Plt Count (150-450) k/uL Neutrophils % % Lymphocytes % % Monocytes % % Eosinophils % % Basophils % % Neutrophils # (1.3-7.7) k/uL Lymphocytes # (1.0-4.8) k/uL Monocytes # (0-1.0) k/uL Eosinophils # (0-0.7) k/uL Basophils # (0-0.2) k/uL Sodium (137-145) mmol/L Potassium (3.5-5.1) mmol/L Chloride (98-107) mmol/L Carbon Dioxide (22-30) mmol/L Anion Gap mmol/L BUN (7-17) mg/dL Creatinine (0.52-1.04) mg/dL Est GFR (CKD-EPI)AfAm (>60 ml/min/1.73 sqM) Est GFR (CKD-EPI)NonAf (>60 ml/min/1.73 sqM) Glucose (74-99) mg/dL Plasma Lactic Acid Chris 0.7 (0.7-2.0) mmol/L Calcium (8.4-10.2) mg/dL Total Bilirubin (0.2-1.3) mg/dL AST (14-36) U/L ALT (9-52) U/L Alkaline Phosphatase (38-126) U/L Total Protein (6.3-8.2) g/dL Albumin (3.5-5.0) g/dL Amylase (30-110) U/L Lipase (23-300) U/L Urine Color Urine Appearance (Clear) Urine pH (5.0-8.0) Ur Specific [place] (1.001-1.035) Urine Protein (Negative) Urine Glucose (UA) (Negative) Urine Ketones (Negative) Urine Blood (Negative) Urine Nitrite (Negative) Urine Bilirubin (Negative) Urine Urobilinogen (<2.0) mg/dL Ur Leukocyte Esterase (Negative) - Radiology Data Radiology results: report reviewed (ET head and pelvis is negative for acute disease), image reviewed Disposition Clinical Impression: Dehydration, Gastroenteritis, Acute pancreatitis, Crohns disease Disposition: ADMITTED IP TO THIS [facility] Condition: Good Is patient prescribed a controlled substance at d/c from ED?: No Referrals: None,Stated [Primary Care Provider] - 1-2 days
[2018-08-18 20:56] LABS: Appearance,Urine Clear (Clear); Bilirubin,Urine Negative (Negative); Blood,Urine Negative (Negative); Color,Urine Yellow; Glucose,Urine (UA) Negative (Negative); Ketones,Urine Negative (Negative); Leukocyte Esterase,Urine Negative (Negative); Nitrite,Urine Negative (Negative); PH, Urine 5.5 (5.0-8.0); Protein,Urine Trace (Negative); Specific Gravity,Urine 1.029 (1.001-1.035); Urobilinogen,Urine <2.0 mg/dL (<2.0)
[2018-08-18 21:06] LABS: ALT 11 U/L (9-52); AST 21 U/L (14-36); African American GFR (CKD) >90 (>60 ml/min/1.73 sqM); Albumin 4.8 g/dL (3.5-5.0); Alkaline Phosphatase 67 U/L (38-126); Amylase 182 U/L (30-110); Anion Gap 10 mmol/L; Blood Urea Nitrogen 13 mg/dL (7-17); Calcium 9.1 mg/dL (8.4-10.2); Carbon Dioxide 22 mmol/L (22-30); Chloride 106 mmol/L (98-107); Glucose 92 mg/dL (74-99); Lipase 1172 U/L (23-300); Potassium 4.4 mmol/L (3.5-5.1); Sodium 138 mmol/L (137-145); Total Bilirubin 0.2 mg/dL (0.2-1.3); Total Protein 7.4 g/dL (6.3-8.2)
--- NOTE | 2018-08-18 22:02 | CT ---
EXAMINATION TYPE: CT abdomen pelvis w con DATE OF EXAM: 08/18/2018 COMPARISON: 06/29/2018 HISTORY: Crohns, possible fistula. Hx appy, bowel resection CT DLP: 657.4 mGycm Automated exposure control for dose reduction was used. TECHNIQUE: Helical acquisition of images was performed from the lung bases through the pelvis. CONTRAST: Performed without Oral Contrast and with IV Contrast, patient injected with 100 mL of Isovue 300. FINDINGS: Lung bases are clear. There is no pleural effusion. Heart size is normal. Liver spleen stomach pancreas gallbladder appear normal. Bile ducts are not dilated. There is no adrenal mass. Kidneys show satisfactory contrast opacification. There is no hydronephrosi s. Ureters are not dilated. There is no retroperitoneal adenopathy. The bladder distends smoothly. Th ere is no inguinal hernia. There is some free fluid in the pelvis. There is some dilation of the rect osigmoid colon with air and fecal material. There is no evidence of a bowel obstruction. There is no mesenteric edema. There is no sign of free air. There appears to be multiple surgical clips in the re ctosigmoid colon unchanged. Lumbar spine is intact. Bony pelvis is intact. Uterus is anteverted. IMPRESSION: THERE IS MODERATE FREE FLUID IN THE PELVIS THAT IS SLIGHTLY IMPROVED COMPARED TO LAST EXAM. THERE IS CLEARING OF A LEFT OVARIAN CYST COMPARED TO OLD EXAM. ENLARGED RECTOSIGMOID COLON COULD RELATE TO ILEUS AND CONSTIPATION UNCHANGED.
[2018-08-18 22:08] LABS: Basophils % (A) 1 %; Eosinophils # (A) 0.1 k/uL (0-0.7); Eosinophils % (A) 2 %; HCT 38.4 % (34.0-46.0); HGB 12.5 gm/dL (11.4-16.0); Lymphocytes # (A) 2.4 k/uL (1.0-4.8); Lymphocytes % (A) 33 %; MCH 31.7 pg (25.0-35.0); MCHC 32.7 g/dL (31.0-37.0); MCV 97.2 fL (80.0-100.0); Mean Platelet Volume 7.7; Monocytes # (A) 0.4 k/uL (0-1.0); Monocytes % (A) 5 %; Neutrophils # (A) 4.2 k/uL (1.3-7.7); Neutrophils % (A) 57 %; Platelet Count 220 k/uL (150-450); RBC 3.95 m/uL (3.80-5.40); RDW 14.1 % (11.5-15.5); WBC 7.3 k/uL (3.8-10.6)
[2018-08-18] MEDS ORDERED: ONDANSETRON 4 MG/2 ML VIAL IVP PRN (23:17)
[2018-08-18] MEDS ORDERED: SODIUM CHLORIDE 0.9% 1,000 ML IV ONE (23:17)
[2018-08-19 00:08] VITALS: BMI 22.7
[2018-08-19] MEDS: HEPARIN SODIUM,PORCINE 5,000 UNIT/ML 1 ML VIAL SQ SCH ×3 (00:31→15:32)
--- NOTE | 2018-08-19 01:33 | P.HPIM ---
History of Present Illness H&P Date: 08/19/18 Chief Complaint: Abdominal pain nausea vomiting 38-year-old female with history of Crohn's disease Initially patient came into the hospital with concerns regarding possible f lareup of Crohn's disease. She reported that she's been feeling sick for the past few days, however today was about her day feeling well this morning had some sandwiches and then started feeling sick again with epigastric abdominal pain stabbing in nature radiating to the rest of the abdomen associated with dry heaving and nausea denies any diarrhea or bloody bowel movements no relieving or aggravating factors. She decided come to the ER to get evaluated she was worried that she is having maybe fistulas with complications of her Crohn's disease. In the ED, the ER doctor did examine her found no evidence of any perineal fistulas or abscesses. CT of the abdomen showed chronic changes of the colon, and resolution of ovarian cyst. Patient labs revealed elevated lipase was suspicious for acute pancreatitis attack. Patient never had any attacks of pancreatitis in the past. She denies any alcohol intake denies any trauma. Denies any history of gallstones. Patient was admitted for further management of acute pancreatitis Review of Systems Pertinent positives as noted in HPI. All other systems were reviewed and are negative Past Medical History Past Medical History: Fibromyalgia, Supraventricular Tachycardia (SVT) Additional Past Medical History / Comment(s): crohns, migraine álvarez, ovarian cysts History of Any Multi-Drug Resistant Organisms: ESBL Date of last positivie culture/infection: 08/08/2014 MDRO Source:: Groin-ESBL Klebsiella Past Surgical History: Appendectomy, Bowel Resection, Cardiac Ablation Additional Past Surgical History / Comment(s): J-POUCH, subtotal colectomy with ileostomy secondary to crohn's in January 2010 at [facility]. Ileal pouch and anal anastomosis in September 2010. Past Anesthesia/Blood Transfusion Reactions: No Reported Reaction Past Psychological History: Anxiety, Bipolar, Depression Additional Psychological History / Comment(s): Borderline personality. Smoking Status: Former smoker Past Alcohol Use History: None Reported Additional Past Alcohol Use History / Comment(s): Patient states she does not smoke cigarettes. She does smoke marijuana on a regular basis and is trying to get a medical marijuana card. She denies any alcohol use or any other street drug use. Past Drug Use History: Marijuana - Past Family History Father Family Medical History: Unable to Obtain Additional Family Medical History / Comment(s): Father is 54 years of age and has a problem with alcoholism. Mother Additional Family Medical History / Comment(s): Mother is in her 50s and has mental health issues as well as treatment currently for cat scratch fever. Brother(s) Additional Family Medical History / Comment(s): Patient has 2 brothers one has problems with IBS and one has anger management issues. Patient does not have any sisters. She does not have any children of her own. She states there was a grandmother with Crohn's disease. Medications and Allergies Home Medications Medication Instructions Recorded Confirmed Type Loperamide [Imodium] 6 mg PO DAILY 02/23/18 08/18/18 History Loratadine 10 mg PO DAILY 02/23/18 08/18/18 History Adalimumab [Humira Pediatric] 40 mg SQ Q14D 06/29/18 08/18/18 History Allergies Allergy/AdvReac Type Severity Reaction Status Date / Time cat dander Allergy Swelling Verified 08/18/18 20:42 ciprofloxacin [From Cipro] Allergy Unknown Verified 08/18/18 20:42 ciprofloxacin HCl Allergy Unknown Verified 08/18/18 20:42 [From Cipro] codeine Allergy Unknown Verified 08/18/18 20:42 diphenhydramine HCl Allergy Unknown Verified 08/18/18 20:42 [From Benadryl] Latex, Natural Rubber Allergy Unknown Verified 08/18/18 20:42 meperidine HCl [From Demerol] Allergy Unknown Verified 08/18/18 20:42 morphine Allergy Unknown Verified 08/18/18 20:42 acetaminophen [From Vicodin] AdvReac Nausea Verified 08/18/18 20:42 hydrocodone [From Vicodin] AdvReac Nausea Verified 08/18/18 20:42 metronidazole [From Flagyl] AdvReac Unknown Verified 08/18/18 20:42 Physical Exam Vitals: Vital Signs Temp Pulse Pulse Resp BP BP Pulse Ox 08/19/18 00:00 98.0 F 74 18 95/58 100 08/18/18 23:42 98.3 F 77 18 115/65 99 08/18/18 22:26 98.0 F 90 15 121/76 100 08/18/18 19:46 98.7 F 76 18 109/71 99 Intake and Output 08/18/18 08/18/18 08/19/18 14:59 22:59 06:59 Other: Weight 63.503 kg Constitutional: No acute distress, conversant, pleasant Eyes: Anicteric sclerae, moist conjunctiva, no lid-lag Pupils equal round reactive to light ENMT: NC/AT Oropharynx clear, no erythema, exudates Neck: Supple, FROM, no masses, or JVD No carotid bruits No thyromegaly Lungs: Clear to auscultation Clear to percussion Normal respiratory effort, no accessory muscle use Cardiovascular: Heart regular in rate and rhythm, No murmurs, gallops, or rubs No peripheral edema Abdominal: Soft, tenderness to palpation of the epigastric region and suprapubic region voluntary guarding, no rebound or rigidity Visible scar midline abdomen Abdomen moving with respiration Normoactive bowel sounds No hepatomegaly, No splenomegaly No palpable mass No abdominal wall hernia noted Skin: Normal temperature, tone, texture, turgor No induration No subcutaneous nodules No rash, lesions No ulcers Extremities: No digital cyanosis No clubbing Pedal pulses intact and symmetrical Radial pulses intact and symmetrical No calf tenderness Psychiatric: Alert and oriented to person, place and time Appropriate affect fair judgement Neuro Muscles Strength 5/5 in all 4 extremities Sensation to light touch grossly present throughout Cranial nerves II-XII grossly intact No focal sensory deficits Lymphatics: no palpable cervical or supraclavicular , or inguinal lymph nodes Results CBC & Chem 7: 08/18/18 20:27 08/18/18 20:27 Labs: Abnormal Lab Results - Last 24 Hours (Table) 08/18/18 08/18/18 Range/Units 19:54 20:27 Amylase 182 H (30-110) U/L Lipase 1172 H (23-300) U/L Urine Protein Trace H (Negative) Thrombosis Risk Factor Assmnt - Choose All That Apply Any of the Below Risk Factors Present?: No Other Risk Factors: No Other congenital or acquired thrombophilia - If yes, enter type in comment: No Thrombosis Risk Factor Assessment Level: Very Low Risk Assessment and Plan Assessment: 28-year-old female with history of Crohn's disease admitted as an inpatient with anticipated length of stay more than 48 hours due to acute pancreatitis Plan: Acute pancreatitis, due to unknown underlying cause Pain control with opiates Nothing by mouth IV fluid hydration with lactated Ringer When necessary Phenergan for nausea vomiting PPI Check liver ultrasound to rule out gallstones Patient denies any alcohol intake Continue home meds History of Crohn's disease continue outpatient follow-up DVT prophylaxis heparin subcu 3 times a day Surrogate decision-maker: Ritchie CODE STATUS: Full code Discussed with: Patient, ER, RN Anticipated discharge: 48-[address]: Home A total of *60 minutes was spent on the care of this complex patient more than 50% of the time was spent in counseling and care coordination.
[2018-08-19] MEDS: LORATADINE 10 MG TAB PO SCH ×2 (01:37→08:46)
[2018-08-19] MEDS: PROMETHAZINE INJ 25 MG in SODIUM CHLORIDE 0.9% 50 ML IVPB PRN ×4 (01:37→21:12)
[2018-08-19] MEDS: LOPERAMIDE 2 MG CAP PO SCH ×3 (01:37→20:12)
[2018-08-19] MEDS: LACTATED RINGERS 1,000 ML IV SCH ×4 (01:37→21:16)
[2018-08-19] MEDS: HYDROmorphone 1 MG/ML 1 ML SYRINGE IVP PRN ×6 (01:38→21:10)
[2018-08-19] MEDS: PANTOPRAZOLE 40 MG/10 ML VIAL IVP SCH (07:46)
[2018-08-19 08:15] LABS: Basophils % (A) 0 %; Eosinophils # (A) 0.1 k/uL (0-0.7); Eosinophils % (A) 1 %; HGB 11.8 gm/dL (11.4-16.0); Lymphocytes % (A) 29 %; MCH 32.2 pg (25.0-35.0); MCHC 32.7 g/dL (31.0-37.0); MCV 98.4 fL (80.0-100.0); Mean Platelet Volume 7.7; Monocytes # (A) 0.3 k/uL (0-1.0); Monocytes % (A) 4 %; Neutrophils # (A) 4.3 k/uL (1.3-7.7); Neutrophils % (A) 64 %; Platelet Count 209 k/uL (150-450); RBC 3.66 m/uL (3.80-5.40); RDW 14.3 % (11.5-15.5); WBC 6.8 k/uL (3.8-10.6)
[2018-08-19 08:19] LABS: ALT 12 U/L (9-52); AST 16 U/L (14-36); African American GFR (CKD) >90 (>60 ml/min/1.73 sqM); Albumin 3.4 g/dL (3.5-5.0); Alkaline Phosphatase 52 U/L (38-126); Anion Gap 4 mmol/L; Blood Urea Nitrogen 7 mg/dL (7-17); Calcium 8.5 mg/dL (8.4-10.2); Carbon Dioxide 23 mmol/L (22-30); Chloride 112 mmol/L (98-107); Glucose 84 mg/dL (74-99); Potassium 4.3 mmol/L (3.5-5.1); Sodium 139 mmol/L (137-145); Total Bilirubin 0.4 mg/dL (0.2-1.3); Total Protein 5.7 g/dL (6.3-8.2)
--- NOTE | 2018-08-19 09:41 | US ---
EXAMINATION TYPE: US abdomen limited DATE OF EXAM: 08/19/2018 COMPARISON: CT abdomen pelvis dated 08/18/2018 CLINICAL HISTORY: acute pancreatitis. pancreatitis EXAM MEASUREMENTS: Liver Length: 13.2 cm Gallbladder Wall: 0.3 cm CBD: 0.5 cm Right Kidney: 10.7 x 3.6 x 4.0 cm Pancreas: duct = 0.3cm Liver: appears wnl Gallbladder: no evidence of stones Evidence for sonographic Lee's sign: no CBD: wnl Right Kidney: no evidence of hydronephrosis or mass No peripancreatic fluid collection is seen. No gross evidence of pancreatic calcifications or pancrea tic mass. Pancreatic ductal dilatation is mild as measured above. Visualized pancreatic parenchyma do es appear homogeneous. IMPRESSION: Mildly dilated pancreatic duct can be seen on the basis of chronic pancreatitis in this p atient with a stated history of pancreatitis. Alternatively this could represent early main branch IP MN and annual surveillance with MRCP could be performed. No suspicious pancreatic mass is seen on tod ay's exam or on the CT dated 08/18/2018. No peripancreatic fluid collection.
--- NOTE | 2018-08-19 10:35 | P.PN ---
Progress Note - Text Progress Note Date: 08/19/18 Please refer to H&P for full note. 28-year-old female with history of Crohn's disease presents to the ED for abdominal pain, soreness near the rectum and nonbilious nonbloody nausea and vomiting over the past few days.CT of the abdomen and pelvis showed a normal pancreas and gallbladder without bile duct dilatation. There was some dilation of the rectosigmoid colon with air and fecal matter, possible constipation versus ileus. She was noted to have an amylase of 182 and lipase of 1172. Abd ominal ultrasound showed mildly dilated pancreatic duct. LFTs are within normal limits. Patient was seen and examined. No acute events overnight. Patient reports slight improvement in her abdominal pain, well controlled with current pain regimen. 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 States that she is currently on Humira for treatment of her Crohn's. We will treat her pancreatitis with Dilaudid for pain management, lactated Ringer's at 150 mL/h, nothing by mouth and advance. Zofran as needed for nausea or vomiting. We'll consult gastroenterology for further recommendations. Patient is pending clinical improvement. Likely DC in 1-2 days.
[2018-08-20] MEDS: HEPARIN SODIUM,PORCINE 5,000 UNIT/ML 1 ML VIAL SQ SCH ×4 (00:05→22:57)
[2018-08-20] MEDS: HYDROmorphone 1 MG/ML 1 ML SYRINGE IVP PRN ×7 (00:40→21:21)
--- NOTE | 2018-08-20 01:51 | P.CONS ---
History of Present Illness - Reason for Consult Consult date: 08/19/18 Abdominal pain, Crohn's disease, pancreatitis Requesting physician: Cinthya Jovel - Chief Complaint Abdominal pain - History of Present Illness 28-year-old female who reports a 9 year history of Crohn's disease who presented to the hospital with complaints of abdominal pain. The patient had reported feeling unwell for the few days prior to presentation. She reports having epigastric abdominal pain sharp in nature with radiation across her abdomen. She reports associated dry heaving and nausea prior to presentation. She was unsure if this pain was secondary to her underlying Crohn's disease or something else. She reports bowel movements did not change and are 3-4 nonbloody bowel movements daily. No diarrhea, constipation or blood per rectum reported. In terms of the patient's Crohn's disease she reports initially being diagnosed with ulcerative colitis 9 years ago and was subsequently told she had Crohn's disease 5 years ago. 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 She reports requiring a lot of steroid therapy when initially diagnosed but is currently on a regimen of Humira. She follows up at the [facility] and reports that she is due for a colonoscopy. She also takes loperamide for her loose stool. On presentation to the hospital she was found to have WBC 6.8, hemoglobin 11.8, platelet count 209,000, total bilirubin 0.4, alkaline phosphatase 52, AST 16 and ALT 12. Lipase was found to be elevated at 1172 and amylase 182. Evaluation with CT of the abdomen was negative for any colonic obstruction or evidence of inflammation in the pancreas. This was followed by ultrasound of the abdomen which didn't comment on a mildly dilated pancreatic duct. Currently the patient is lying in bed reporting that she is still having abdominal pain. She is receiving IV fluid hydration and pain control. She denies drinking any alcohol. No new medicati ons in the past 6 months. Review of Systems REVIEW OF SYSTEMS: CONSTITUTIONAL: Denies any fevers, chills, weight change or fatigue. CARDIOVASCULAR: Denies any chest pain, palpitations high or low blood pressures, but does have a history of tachycardia. RESPIRATORY: Denies any shortness of breath, hemoptysis or cough. GENITOURINARY: No dysuria or hematuria. MUSCULOSKELETAL: No weakness reported. SKIN: Denies any new rashes or lesions, jaundice or pallor. PSYCHIATRIC: Denies any suicidal ideation. NEUROLOGY: Denies headache, denies any new focal deficits. EARS/NOSE/THROAT: No recent hearing change, congestion, nasal discharge or sore throat. EYES: No pain in eyes, discharge or change in vision. GASTROINTESTINAL: As per HPI. Past Medical History Past Medical History: Fibromyalgia, Supraventricular Tachycardia (SVT) Additional Past Medical History / Comment(s): crohns, migraine álvarez, ovarian cysts History of Any Multi-Drug Resistant Organisms: ESBL Year Discovered:: 08/08/2014 MDRO Source:: Groin-ESBL Klebsiella Past Surgical History: Appendectomy, Bowel Resection, Cardiac Ablation Additional Past Surgical History / Comment(s): J-POUCH, subtotal colectomy with ileostomy secondary to crohn's in January 2010 at [facility] in [facility]. Ileal pouch and anal anastomosis in September 2010. Past Anesthesia/Blood Transfusion Reactions: No Reported Reaction Past Psychological History: Anxiety, Bipolar, Depression Additional Psychological History / Comment(s): Borderline personality. Smoking Status: Former smoker Past Alcohol Use History: None Reported Additional Past Alcohol Use History / Comment(s): Patient states she does not smoke cigarettes. She does smoke marijuana on a regular basis and is trying to get a medical marijuana card. She denies any alcohol use or any other street drug use. Past Drug Use History: Marijuana - Past Family History Father Family Medical History: Unable to Obtain Additional Family Medical History / Comment(s): Father is 54 years of age and has a problem with alcoholism. Mother Additional Family Medical History / Comment(s): Mother is in her 50s and has mental health issues as well as treatment currently for cat scratch fever. Brother(s) Additional Family Medical History / Comment(s): Patient has 2 brothers one has problems with IBS and one has anger management issues. Patient does not have any sisters. She does not have any children of her own. She states there was a grandmother with Crohn's disease. Medications and Allergies Home Medications Medication Instructions Recorded Confirmed Type Loperamide [Imodium] 6 mg PO DAILY 02/23/18 08/18/18 History Loratadine 10 mg PO DAILY 02/23/18 08/18/18 History Adalimumab [Humira Pediatric] 40 mg SQ Q14D 06/29/18 08/18/18 History Allergies Allergy/AdvReac Type Severity Reaction Status Date / Time cat dander Allergy Swelling Verified 08/18/18 20:42 ciprofloxacin [From Cipro] Allergy Unknown Verified 08/18/18 20:42 ciprofloxacin HCl Allergy Unknown Verified 08/18/18 20:42 [From Cipro] codeine Allergy Unknown Verified 08/18/18 20:42 diphenhydramine HCl Allergy Unknown Verified 08/18/18 20:42 [From Benadryl] Latex, Natural Rubber Allergy Unknown Verified 08/18/18 20:42 meperidine HCl [From Demerol] Allergy Unknown Verified 08/18/18 20:42 morphine Allergy Unknown Verified 08/18/18 20:42 acetaminophen [From Vicodin] AdvReac Nausea Verified 08/18/18 20:42 hydrocodone [From Vicodin] AdvReac Nausea Verified 08/18/18 20:42 metronidazole [From Flagyl] AdvReac Unknown Verified 08/18/18 20:42 Physical Exam Vitals: Vital Signs Temp Pulse Pulse Resp BP BP Pulse Ox 08/19/18 15:51 16 08/19/18 14:19 98.1 F 60 16 95/57 99 08/19/18 08:00 18 08/19/18 05:00 97.9 F 66 18 99/57 99 08/19/18 00:00 98.0 F 74 18 95/58 100 08/18/18 23:42 98.3 F 77 18 115/65 99 08/18/18 22:26 98.0 F 90 15 121/76 100 08/18/18 19:46 98.7 F 76 18 109/71 99 Intake and Output 08/19/18 08/19/18 08/19/18 06:59 14:59 22:59 Intake Total 0 Balance 0 Intake: Oral 0 Other: Voiding Method Toilet # Voids 1 2 On physical examination, patient appears comfortable in no apparent distress. HEAD: Normocephalic, atraumatic. EYES: No scleral icterus. No conjunctival injection. MOUTH: No lesions, tongue midline. NECK: Trachea midline, no gross abnormalities. CHEST: Clear to auscultation with no wheezing or rhonchi appreciated. HEART: Regular rate and rhythm. ABDOMEN: Soft, tender to palpation with large midline abdominal scar noted. Bowel sounds are positive. No organomegaly. No guarding or rigidity. EXTREMITIES: No pedal edema. SKIN: No rashes, no jaundice. NEUROLOGIC: Alert and oriented x3. No focal deficits. Results CBC & Chem 7: 08/19/18 07:32 08/19/18 07:32 Labs: Abnormal Lab Results - Last 24 Hours (Table) 08/18/18 08/18/18 08/19/18 Range/Units 19:54 20:27 07:32 RBC 3.66 L (3.80-5.40) m/uL Chloride (98-107) mmol/L Total Protein (6.3-8.2) g/dL Albumin (3.5-5.0) g/dL Amylase 182 H (30-110) U/L Lipase 1172 H (23-300) U/L Urine Protein Trace H (Negative) 08/19/18 Range/Units 07:32 RBC (3.80-5.40) m/uL Chloride 112 H (98-107) mmol/L Total Protein 5.7 L (6.3-8.2) g/dL Albumin 3.4 L (3.5-5.0) g/dL Amylase (30-110) U/L Lipase (23-300) U/L Urine Protein (Negative) CT scan - abdomen: report reviewed (CT of the abdomen was negative for any colonic obstruction or evidence of inflammation in the pancreas. This was followed by ultrasound of the abdomen which didn't comment on a mildly dilated pancreatic duct.) Assessment and Plan (1) Acute pancreatitis Narrative/Plan: 28-year-old patient with a long-standing history of Crohn's disease who presented to the hospital with complaints of abdominal pain and was found to have elevation in her lipase. Currently being treated for acute pancreatitis with IV fluid hydration and pain control. Computed tomography scan of the abdomen did not show any evidence of inflammation in the pancreas with mild pancreatic duct dilation was noted on ultrasound. Patient's denies any alcohol use and no evidence of cholelithiasis on imaging. Unknown etiology as the patient also denies any medication use other than Humira and loperamide. Current Visit: Yes Status: Acute Code(s): K85.90 - ACUTE PANCREATITIS WITHOU T NECROSIS OR INFECTION, UNSP SNOMED Code(s): 613336839 (2) Crohns disease Narrative/Plan: 28-year-old with nine-year history of Crohn's disease complicated by fistula formation requiring surgery in the past with the patient reporting J-pouch with ileoanal anastomosis in 2010. Currently she is on biologic therapy with Humira and following with the [facility]. Current Visit: Yes Status: Acute Code(s): K50.90 - CROHN'S DISEASE, UNSPECI FIED, WITHOUT COMPLICATIONS SNOMED Code(s): 24757310 Plan: Supportive care Nothing by mouth Advanced diet as pain improves Continue IV fluid hydration with lactated Ringer's Continue pain control Ambulation as tolerated Will order YOLIS and IgG4 to rule out autoimmune pancreatitis Will order stool studies Will order inflammatory markers Patient would likely benefit from an MRI/MRCP for further evaluation of ductal dilation and to rule out main duct IPMN Thank you for allowing us to participate in the care of the patient we will continue to follow
[2018-08-20] MEDS: LACTATED RINGERS 1,000 ML IV SCH ×3 (04:54→16:41)
[2018-08-20] MEDS: PROMETHAZINE INJ 25 MG in SODIUM CHLORIDE 0.9% 50 ML IVPB PRN ×3 (06:50→21:23)
[2018-08-20] MEDS: PANTOPRAZOLE 40 MG/10 ML VIAL IVP SCH (09:02)
[2018-08-20] MEDS: LORATADINE 10 MG TAB PO SCH (09:03)
[2018-08-20 09:52] LABS: Amylase 54 U/L (30-110); Lipase 128 U/L (23-300)
[2018-08-20 10:22] LABS: C Reactive Protein <5.0 mg/L (<10.0)
[2018-08-20] MEDS ORDERED: ADALIMUMAB 80 MG/0.8 ML SQ ONE (11:56)
--- NOTE | 2018-08-20 11:57 | P.PN ---
Subjective Progress Note Date: 08/20/18 Principal diagnosis: Pancreatitis Patient was seen and examined. No acute events overnight. Patient reports improvement in her abdominal pain, well controlled with current medication. Patient complains of dry heaving and nausea with vomiting. States that this is due to hunger rather than pancreatitis. Requesting a diet. She denies any chest pain, shortness of breath or palpitations. Patient is requesting her Humira injection for Crohn's. Objective - Vital Signs Vital signs: Vital Signs Temp 98.6 F 08/20/18 04:55 Pulse 87 08/20/18 04:55 Resp 18 08/20/18 04:55 BP 119/65 08/20/18 04:55 Pulse Ox 100 08/20/18 04:55 Intake & Output 08/19/18 08/20/18 08/20/18 18:59 06:59 18:59 Other: Voiding Method Toilet # Voids 2 2 - Exam General: [non toxic], [no distress], [appears at stated age] Derm: [warm], [dry] Head: [atraumatic], [normocephalic], [symmetric] Eyes: [EOMI], [no lid lag], [anicteric sclera] Mouth: [no lip lesion], [mucus membranes moist] Cardiovascular: [S1S2 reg], [no murmur], [positive DP pulse bilateral], Lungs: [CTA bilateral], [no rhonchi, no rales] , [no accessory muscle use] Abdominal: [soft], [tenderness to palpation in the epigastric area without rebound], [no guarding], [abdominal surgical scar] Ext: [no gross muscle atrophy], [no edema], [no contractures] Neuro: [no focal neuro deficits] Psych: [Alert], [oriented], [appropriate affect] - Labs CBC & Chem 7: 08/19/18 07:32 08/19/18 07:32 Assessment and Plan Assessment: Assessment and Plan Acute pancreatitis Crohn's disease Amylase from 180-254. Lipase 1172-128. CT abdomen and pelvis shows free fluid in the pelvis, pancreas within normal limits. Patient is afebrile with no leukocytosis. Plans: Pain management with Dilaudid as needed. Continue lactated Ringer's at 150 mL/h. Start Protonix 40 mg IV daily. Promethazine as needed for nausea and vomiting. We'll advance diet to clear liquids, regular this evening and if tolerating. Follow gastroenterology consultation. Plans: We'll give Humira injection today. Follow in the outpatient setting. Patient is pending clinical improvement. Labs have improved. Advancing diet today. DC tomorrow if tolerating.
[2018-08-20] MEDS ORDERED: HUMIRA 40 MG/0.8 ML SQ ONE (14:00)
[2018-08-20] MEDS: LOPERAMIDE 2 MG CAP PO SCH (19:51)
[2018-08-20 21:05] VITALS: RESP 14
--- NOTE | 2018-08-20 22:17 | P.PN ---
Subjective Progress Note Date: 08/20/18 Principal diagnosis: Crohn's disease, acute pancreatitis Patient seen lying in bed. She is reporting that her abdominal pain is improving. She is tolerated a liquid diet. Objective - Vital Signs Vital signs: Vital Signs Temp 98.8 F 08/20/18 19:32 Pulse 77 08/20/18 19:32 Resp 14 08/20/18 19:32 BP 113/69 08/20/18 19:32 Pulse Ox 100 08/20/18 19:32 Intake & Output 08/20/18 08/20/18 08/21/18 06:59 18:59 06:59 Intake Total 540 Balance 540 Intake: Oral 540 Other: # Voids 2 2 # Bowel Movements 1 - Exam On physical examination, patient appears comfortable in no apparent distress. HEAD: Normocephalic, atraumatic. EYES: No scleral icterus. No conjunctival injection. MOUTH: No lesions, tongue midline. NECK: Trachea midline, no gross abnormalities. CHEST: Clear to auscultation with no wheezing or rhonchi appreciated. HEART: Regular rate and rhythm. ABDOMEN: Soft, less tender to palpation, midline scar noted. Bowel sounds are positive. No organomegaly. No guarding or rigidity. EXTREMITIES: No pedal edema. SKIN: No rashes, no jaundice. NEUROLOGIC: Alert and oriented x3. No focal deficits. - Labs CBC & Chem 7: 08/19/18 07:32 08/19/18 07:32 Assessment and Plan (1) Acute pancreatitis Narrative/Plan: 28-year-old patient with a long-standing history of Crohn's disease who presented to the hospital with complaints of abdominal pain and was found to have elevation in her lipase. Currently being treated for acute pancreatitis with IV fluid hydration and pain control. Computed tomography scan of the abdomen did not show any evidence of inflammation in the pancreas with mild pancreatic duct dilation was noted on ultrasound. Patient's denies any alcohol use and no evidence of cholelithiasis on imaging. Unknown etiology as the patient also denies any medication use other than Humira and loperamide. Current Visit: Yes Status: Acute Code(s): K85.90 - ACUTE PANCREATITIS WITHOUT NECROSIS OR INFECTION, UNSP SNOMED Code(s): 445211603 (2) Crohns disease Narrative/Plan: 28-year-old with nine-year history of Crohn's disease complicated by fistula formation requiring surgery in the past with the patient reporting J-pouch with ileoanal anastomosis in 2010. Currently she is on biologic therapy with Humira and following with the [facility]. Current Visit: Yes Status: Acute Code(s): K50.90 - CROHN'S DISEASE, UNSPECIFIED, WITHOUT COMPLICATIONS SNOMED Code(s): 79425737 Plan: Supportive care Continue liquid diet, advance tomorrow if symptomatically improving Continue IV fluid hydration with lactated Ringer's Continue pain control Ambulation as tolerated YOLIS and IgG4 to rule out autoimmune pancreatitis pending Will order stool studies pending CRP normal Patient would likely benefit from an MRI/MRCP for further evaluation of ductal dilation and to rule out main duct IPMN Thank you for allowing us to participate in the care of the patient we will continue to follow
[2018-08-21] MEDS: LACTATED RINGERS 1,000 ML IV SCH ×2 (00:32→07:55)
[2018-08-21] MEDS: HYDROmorphone 1 MG/ML 1 ML SYRINGE IVP PRN ×4 (00:32→12:39)
[2018-08-21 07:06] VITALS: BP 95/59; PULSE 60; TEMP 98.2
[2018-08-21] MEDS: PANTOPRAZOLE 40 MG/10 ML VIAL IVP SCH (07:54)
[2018-08-21] MEDS: LORATADINE 10 MG TAB PO SCH (07:54)
[2018-08-21] MEDS: HEPARIN SODIUM,PORCINE 5,000 UNIT/ML 1 ML VIAL SQ SCH (07:55)
--- NOTE | 2018-08-21 09:43 | P.DS ---
Providers Date of admission: 08/18/18 23:18 Expected date of discharge: 08/21/18 Attending physician: Cinthya Jovel MD Consults: 08/19/18 10:24 Consult Physician Stat Consulting Provider: Nazario Beal Consult Reason/Comments: Crohns, pancreatitis Do you want consulting provider notified?: Yes Primary care physician: Stated None Hospital Course: 28-year-old female with history of Crohn's disease Initially patient came into the hospital with concerns regarding possible flareup of Crohn's disease. She reported that she's been feeling sick for the past few days, however today was about her day feeling well this morning had some sandwiches and then started feeling sick again with epigastric abdominal pain stabbing in nature radiating to the rest of the abdomen associated with dry heaving and nausea denies any diarrhea or bloody bowel movements no relieving or aggravating factors. She decided come to the ER to get evaluated she was worried that she is having maybe fistulas with complications of her Crohn's disease. In the ED, the ER doctor did examine her found no evidence of any perineal fistulas or abscesses. Patient labs revealed elevated lipase was suspicious for acute pancreatitis attack. With regard to her pancreatitis, patient was afebrile with no leukocytosis. Her amylase went from 182 on admission to 54 on discharge. Her lipase went from 1172 on admission to 128 on discharge. Her pain was controlled with Dilaudid IV. She was given promethazine for nausea. Patient was started on Protonix IV and hydrated with lactated Ringer's at 150 mL per hour. Gastroenterology was consulted and recommended treating the patient symptomatically and follow-up in 6-8 weeks for possible MRCP of ductal dilation. CT of the abdomen and pelvis showed moderate free fluid in the pelvis, clearing of a left ovarian cyst, enlarged rectosigmoid colon related to ileus and constipation. Abdominal ultrasound showed mildly dilated pancreatic duct. Patient was seen and examined. No acute events overnight. Patient reports hunger pains. She denies any nausea or vomiting. She denies any chest pain, shortness of breath or palpitations. No fever or chills. General: [non toxic], [no distress], [appears at stated age] Derm: [warm], [dry] Head: [atraumatic], [normocephalic], [symmetric] Eyes: [EOMI], [no lid lag], [anicteric sclera] Mouth: [no lip lesion], [mucus membranes moist] Cardiovascular: [S1S2 reg], [no murmur], [positive DP pulse bilateral], Lungs: [CTA bilateral], [no rhonchi, no rales] , [no accessory muscle use] Abdominal: [soft], [tenderness to deep palpation in the epigastric area without rebound], [no guarding], [abdominal surgical scar] Ext: [no gross muscle atrophy], [no edema], [no contractures] Neuro: [no focal neuro deficits] Psych: [Alert], [oriented], [appropriate affect] Assessment and Plan Acute pancreatitis Crohn's disease Amylase from 180-54. Lipase 1172-128. CT abdomen and pelvis shows free fluid in the pelvis, pancreas within normal limits. Patient is afebrile with no leukocytosis. Abdominal ultrasound shows dilated pancreatic duct. Plans: Pain management with Dilaudid as needed. Continue lactated Ringer's at 150 mL/h. Start Protonix 40 mg IV daily. Promethazine as needed for nausea and vomiting. Advance diet as tolerated. Follow gastroenterology consultation. Plans: Humira injection given yesterday. Follow in the outpatient setting. Advance diet. DC this afternoon if tolerating. Pertinent Studies: CT abdomen and pelvis, abdominal ultrasound Patient Condition at Discharge: Stable Plan - Discharge Summary New Discharge Prescriptions: Continue Loratadine 10 mg PO DAILY Loperamide [Imodium] 6 mg PO DAILY Adalimumab [Humira Pediatric Crohn's] 40 mg SQ Q14D Discharge Medication List Loperamide [Imodium] 6 mg PO DAILY 02/23/18 [History] Loratadine 10 mg PO DAILY 02/23/18 [History] Adalimumab [Humira Pediatric Crohn's] 40 mg SQ Q14D 06/29/18 [History] Follow up Appointment(s)/Referral(s): None,Stated [Primary Care Provider] - 1-2 days Nazario Beal MD [STAFF PHYSICIAN] - 1 Week Activity/Diet/Wound Care/Special Instructions: Diet: Low-fat Follow-up PCP within 1-2 days of discharge. Follow-up with gastroenterology within 1 week of discharge. Discharge Disposition: HOME SELF-CARE
[2018-08-22 09:49] LABS: IgG Subclass 3 8.2 mg/dL (11.0-85.0); IgG Subclass 4 2.4 mg/dL (3.0-175.0)
== END 2018-08-21 13:53 | disposition home or self-care (01) | DRG 439 ==
LOC: EC 19:12 → 4MS4W 23:18
PROVIDERS: ADMIT Internal Medicine; ATTEND Internal Medicine
DX: K85.90 Acute pancreatitis without necrosis or infection, unspecified (principal); K50.90 Crohn's disease, unspecified, without complications; E86.0 Dehydration; F41.9 Anxiety disorder, unspecified; F60.3 Borderline personality disorder; G43.909 Migraine, unspecified, not intractable, without status migrainosus; F32.9 Major depressive disorder, single episode, unspecified; M79.7 Fibromyalgia; N83.202 Unspecified ovarian cyst, left side; Z87.891 Personal history of nicotine dependence; Z79.899 Other long term (current) drug therapy; Z88.5 Allergy status to narcotic agent; Z88.8 Allergy status to other drugs, medicaments and biological substances; Z88.1 Allergy status to other antibiotic agents; Z91.040 Latex allergy status; Z90.49 Acquired absence of other specified parts of digestive tract; Z93.2 Ileostomy status; Z81.1 Family history of alcohol abuse and dependence; Z83.79 Family history of other diseases of the digestive system
CPT/HCPCS: 36415; 74177; 76705; 80053; 81003; 82150; 82787; 83605; 83690; 83993; 85025; 85652; 86038; 86140; 87324; 96361; 96374; 96375; 99285

== ENCOUNTER 2018-10-29 00:48 | Emergency (ER) | payer OTHER ==
[2018-10-29 00:54] VITALS: BP 129/73; PULSE 88; RESP 18; TEMP 99.1
--- NOTE | 2018-10-29 01:41 | ED ---
Skin/Abscess/FB HPI - General Chief complaint: Skin/Abscess/Foreign Body Stated complaint: Bump on rt thumb, swelling Time Seen by Provider: 10/29/18 01:00 Source: patient Mode of arrival: ambulatory Limitations: no limitations - History of Present Illness Initial comments: Anitra is a pleasant 28-year-old female who presents the ER today for evaluation of swelling of her right thumb. Patient reports that over the past 2-3 days she has noticed a bulge on the medial side of her right thumb at the distal joint. She reports that initially it wasn't painful but just felt like a bubble of fluid under her skin however she does admit she's been rubbing it and has become somewhat irritated. Patient states that because she is on Humira she no she is immunosuppressed and was worried that this could be an infection which prompted the ER for evaluation. Patient denies any decreased range of motion. She denies any history of any injury or trauma penetrating injury. She denies any history of any joint infections in the past. She denies any recent fevers chills nausea vomiting or any other symptoms. - Related Data Home Medications Medication Instructions Recorded Confirmed Loperamide [Imodium] 6 mg PO DAILY 02/23/18 08/18/18 Loratadine 10 mg PO DAILY 02/23/18 08/18/18 Adalimumab [Humira Pediatric 40 mg SQ Q14D 06/29/18 08/18/18 Crohn's] Previous Rx's Medication Instructions Recorded Cephalexin [Keflex] 500 mg PO Q8HR #21 cap 10/29/18 Allergies Allergy/AdvReac Type Severity Reaction Status Date / Time cat dander Allergy Swelling Verified 10/29/18 00:55 ciprofloxacin [From Cipro] Allergy Unknown Verified 10/29/18 00:55 ciprofloxacin HCl Allergy Unknown Verified 10/29/18 00:55 [From Cipro] codeine Allergy Unknown Verified 10/29/18 00:55 diphenhydramine HCl Allergy Unknown Verified 10/29/18 00:55 [From Benadryl] Latex, Natural Rubber Allergy Unknown Verified 10/29/18 00:55 meperidine HCl [From Demerol] Allergy Unknown Verified 10/29/18 00:55 morphine Allergy Unknown Verified 10/29/18 00:55 acetaminophen [From Vicodin] AdvReac Nausea Verified 10/29/18 00:55 hydrocodone [From Vicodin] AdvReac Nausea Verified 10/29/18 00:55 metronidazole [From Flagyl] AdvReac Unknown Verified 10/29/18 00:55 Review of Systems ROS Statement: Those systems with pertinent positive or pertinent negative responses have been documented in the HPI. ROS Other: All systems not noted in ROS Statement are negative. Past Medical History Past Medical History: Fibromyalgia, Supraventricular Tachycardia (SVT) Additional Past Medical History / Comment(s): crohns, migraine álvarez, ovarian cysts History of Any Multi-Drug Resistant Organisms: ESBL Date of last positivie culture/infection: 08/08/2014 MDRO Source:: Groin-ESBL Klebsiella Past Surgical History: Appendectomy, Bowel Resection, Cardiac Ablation Additional Past Surgical History / Comment(s): J-POUCH, subtotal colectomy with ileostomy secondary to crohn's in January 2010 at [facility] in [facility]. Ileal pouch and anal anastomosis in September 2010. Past Anesthesia/Blood Transfusion Reactions: No Reported Reaction Past Psychological History: Anxiety, Bipolar, Depression Smoking Status: Former smoker Past Alcohol Use History: None Reported Past Drug Use History: Marijuana - Past Family History Father Family Medical History: Unable to Obtain Additional Family Medical History / Comment(s): Father is 54 years of age and has a problem with alcoholism. Mother Additional Family Medical History / Comment(s): Mother is in her 50s and has m ental health issues as well as treatment currently for cat scratch fever. Brother(s) Additional Family Medical History / Comment(s): Patient has 2 brothers one has problems with IBS and one has anger management issues. Patient does not have any sisters. She does not have any children of her own. She states there was a grandmother with Crohn's disease. General Exam - General Exam Comments Initial Comments: Physical Exam GENERAL: Patient is well-developed and well-nourished. Patient is nontoxic and well-hydrated and is in no distress. HENT: Normocephalic, Atraumatic. EYES: PERRL, EOMI PULMONARY: Unlabored respirations CARDIOVASCULAR: There is a regular rate and rhythm without any murmurs gallops or rubs. ABDOMEN: Well-healed surgical incisions, previous colostomy SKIN: Skin is clear with no lesions or rashes and otherwise unremarkable. : Deferred NEUROLOGIC: Patient is alert and oriented x3. Moving all extremities spontaneously MUSCULOSKELETAL: Normal extremities with adequate strength and full range of motion. No lower extremity swelling or edema. No calf tenderness. There does appear to be a callus on the right thumb Neena the skin is somewhat irritated I suspect this is secondary to the patient rubbing it PSYCHIATRIC: Anxious Limitations: no limitations Course Vital Signs 10/29/18 00:50 Temperature 99.1 F Pulse Rate 88 Respiratory 18 Rate Blood Pressure 129/73 O2 Sat by Pulse 98 Oximetry Medical Decision Making - Medical Decision Making The patient was seen and evaluated, history was obtained from the patient This is a pleasant 28-year-old female with very complicated medical history including Crohn's which had a delayed diagnosis, subsequent colectomy with ostomy. Over the past 10 years patient is a very complicated course she is now on Humira she's concerned about being immunocompromise. Patient does admit that she has significant anxiety regarding medical diagnoses. Patient's vital signs are within normal limits, there are no Sirs criteria Physical exam is relatively unremarkable I see no signs of septic joint patient has no signs of cellulitis she has full range of motion of the thumb without pain. I suspect that she has chronic changes to the thumb secondary to it being her dominant hand, however patient significantly anxious. I advised the patient that she continue to observe the finger if he develops any worsening redness or tenderness she can start antibiotics. Patient is agreeable with this. Patient tearful admitting that she was feeling very anxious about this and very embarrassed to come to the emergency department. Disposition Clinical Impression: Swelling of right thumb Disposition: HOME SELF-CARE Condition: Stable Instructions (If sedation given, give patient instructions): Cellulitis (ED), Abscess (ED) Prescriptions: Cephalexin [Keflex] 500 mg PO Q8HR #21 cap Is patient prescribed a controlled substance at d/c from ED?: No Referrals: None,Stated [Primary Care Provider] - 1-2 days
== END 2018-10-29 01:40 | disposition home or self-care (01) ==
LOC: EC 00:48
DX: M79.89 Other specified soft tissue disorders (principal); K50.90 Crohn's disease, unspecified, without complications; Z79.899 Other long term (current) drug therapy; Z91.09 Other allergy status, other than to drugs and biological substances; Z88.1 Allergy status to other antibiotic agents; Z88.5 Allergy status to narcotic agent; Z88.8 Allergy status to other drugs, medicaments and biological substances; Z91.040 Latex allergy status; Z91.048 Other nonmedicinal substance allergy status; Z88.6 Allergy status to analgesic agent; Z87.891 Personal history of nicotine dependence
CPT/HCPCS: 99283

== ENCOUNTER 2018-11-23 18:50 | Emergency (ER) | payer OTHER ==
[2018-11-23 19:17] VITALS: TEMP 97.8
[2018-11-23] MEDS ORDERED: FAMOTIDINE 20 MG TAB PO STA (20:36)
[2018-11-23] MEDS ORDERED: predniSONE 20 MG TAB PO STA (20:36)
[2018-11-23] MEDS ORDERED: HYDROCORTISONE 1% CREAM 30 GM TUBE TOPICAL PRN (20:38)
[2018-11-23 21:12] LABS: Basophils % (A) 1 %; Eosinophils # (A) 0.1 k/uL (0-0.7); Eosinophils % (A) 1 %; HCT 38.7 % (34.0-46.0); HGB 13.2 gm/dL (11.4-16.0); Lymphocytes # (A) 2.3 k/uL (1.0-4.8); Lymphocytes % (A) 27 %; MCH 32.6 pg (25.0-35.0); MCHC 34.1 g/dL (31.0-37.0); MCV 95.6 fL (80.0-100.0); Mean Platelet Volume 7.2; Monocytes # (A) 0.3 k/uL (0-1.0); Monocytes % (A) 4 %; Neutrophils # (A) 5.6 k/uL (1.3-7.7); Neutrophils % (A) 66 %; Platelet Count 295 k/uL (150-450); RBC 4.05 m/uL (3.80-5.40); WBC 8.4 k/uL (3.8-10.6)
[2018-11-23 21:17] LABS: ALT 16 U/L (9-52); AST 28 U/L (14-36); African American GFR (CKD) >90 (>60 ml/min/1.73 sqM); Albumin 4.6 g/dL (3.5-5.0); Alkaline Phosphatase 83 U/L (38-126); Anion Gap 9 mmol/L; Blood Urea Nitrogen 12 mg/dL (7-17); Calcium 9.4 mg/dL (8.4-10.2); Carbon Dioxide 26 mmol/L (22-30); Chloride 105 mmol/L (98-107); Glucose 99 mg/dL (74-99); Potassium 4.1 mmol/L (3.5-5.1); Sodium 140 mmol/L (137-145); Total Bilirubin 0.2 mg/dL (0.2-1.3); Total Protein 7.5 g/dL (6.3-8.2)
[2018-11-23 21:41] LABS: Appearance,Urine Clear (Clear); Bilirubin,Urine Negative (Negative); Blood,Urine Negative (Negative); Color,Urine Yellow; Glucose,Urine (UA) Negative (Negative); Ketones,Urine Negative (Negative); Leukocyte Esterase,Urine Negative (Negative); Nitrite,Urine Negative (Negative); PH, Urine 5.5 (5.0-8.0); Protein,Urine Negative (Negative); Urobilinogen,Urine <2.0 mg/dL (<2.0)
--- NOTE | 2018-11-23 22:10 | ED ---
Dizziness HPI - General Chief Complaint: Dizziness Stated Complaint: Dizzy Time Seen by Provider: 11/23/18 19:29 Source: patient Mode of arrival: wheelchair Limitations: no limitations - History of Present Illness Initial Comments: The patient is a 28-year-old female with past medical history of Crohn's who presents to emergency room with reported presyncopal sensation. The patient reports that she was on her way into work today. States that she ambulated and she felt as if she was going to pass out. States that she felt weak and short of breath. She denies any chest pain or chest palpitations. No recent abdominal pain, nausea or vomiting. No fevers or chills. No recent infections. Denies possibility . Reports that she is on her menstrual cycle. Denies heavy or regular bleeding. No discharge. She has a good appetite. Does report to a history of SVT. 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 States that her symptoms feel different. The patient also reports a rash on her bilateral upper extremities. States that she got a cat 2 weeks ago. The rash did show up 5 days ago. It is similar nature from when she was younger. States it is pruritic. She has been using loratadine at home for her symptoms which has helped. Denies any warmth or pain. No recent medication changes. Denies any other new exposures. Denies airway compromise. There are no other alleviating, precipitating or modifying factors - Related Data Home Medications Medication Instructions Recorded Confirmed Loperamide [Imodium] 6 mg PO DAILY 02/23/18 11/23/18 Loratadine 10 mg PO TID PRN 02/23/18 11/23/18 Adalimumab [Humira Pediatric 40 mg SQ Q14D 06/29/18 11/23/18 Crohn's] Previous Rx's Medication Instructions Recorded predniSONE 20 mg PO BID #10 tab 11/23/18 Allergies Allergy/AdvReac Type Severity Reaction Status Date / Time cat dander Allergy Swelling Verified 11/23/18 21:02 ciprofloxacin [From Cipro] Allergy Unknown Verified 11/23/18 21:02 ciprofloxacin HCl Allergy Unknown Verified 11/23/18 21:02 [From Cipro] codeine Allergy Unknown Verified 11/23/18 21:02 diphenhydramine HCl Allergy Unknown Verified 11/23/18 21:02 [From Benadryl] Latex, Natural Rubber Allergy Unknown Verified 11/23/18 21:02 meperidine HCl [From Demerol] Allergy Unknown Verified 11/23/18 21:02 morphine Allergy Unknown Verified 11/23/18 21:02 acetaminophen [From Vicodin] AdvReac Nausea Verified 11/23/18 21:02 hydrocodone [From Vicodin] AdvReac Nausea Verified 11/23/18 21:02 metronidazole [From Flagyl] AdvReac Unknown Verified 11/23/18 21:02 Review of Systems ROS Statement: Those systems with pertinent positive or pertinent negative responses have been documented in the HPI. ROS Other: All systems not noted in ROS Statement are negative. Past Medical History Past Medical History: Fibromyalgia, Supraventricular Tachycardia (SVT) Additional Past Medical History / Comment(s): crohns, migraine álvarez, ovarian cysts History of Any Multi-Drug Resistant Organisms: ESBL Date of last positivie culture/infection: 08/08/2014 MDRO Source:: Groin-ESBL Klebsiella Past Surgical History: Appendectomy, Bowel Resection, Cardiac Ablation Additional Past Surgical History / Comment(s): J-POUCH, subtotal colectomy with ileostomy secondary to crohn's in January [address] [facility]. Ileal pouch and anal anastomosis in September 2010. Past Anesthesia/Blood Transfusion Reactions: No Reported Reaction Past Psychological History: Anxiety, Bipolar, Depression Smoking Status: Former smoker Past Alcohol Use History: None Reported Past Drug Use History: Marijuana - Past Family History Father Family Medical History: Unable to Obtain Additional Family Medical History / Comment(s): Father is 54 years of age and has a problem with alcoholism. Mother Additional Family Medical History / Comment(s): Mother is in her 50s and has mental health issues as well as treatment currently for cat scratch fever. Brother(s) Additional Family Medical History / Comment(s): Patient has 2 brothers one has problems with IBS and one has anger management issues. Patient does not have any sisters. She does not have any children of her own. She states there was a grandmother with Crohn's disease. General Exam Limitations: no limitations General appearance: alert, in no apparent distress Head exam: Present: atraumatic, normocephalic, normal inspection Eye exam: Present: normal appearance, PERRL, EOMI. Absent: scleral icterus, conjunctival injection, periorbital swelling ENT exam: Present: normal exam, mucous membranes moist Neck exam: Present: normal inspection. Absent: tenderness, meningismus, lymp hadenopathy Respiratory exam: Present: normal lung sounds bilaterally. Absent: respiratory distress, wheezes, rales, rhonchi, stridor Cardiovascular Exam: Present: regular rate, normal rhythm, normal heart sounds. Absent: systolic murmur, diastolic murmur, rubs, gallop, clicks GI/Abdominal exam: Present: soft, normal bowel sounds. Absent: distended, tenderness, guarding, rebound, rigid Extremities exam: Present: normal inspection, full ROM, normal capillary refill. Absent: tenderness, pedal edema, joint swelling, calf tenderness Back exam: Present: normal inspection Neurological exam: Present: alert, oriented X3, CN II-XII intact Psychiatric exam: Present: normal affect, normal mood Skin exam: Present: warm, dry, intact, normal color, rash (maculopapular rash b/l antecubital regions. ) Course Vital Signs 11/23/18 11/23/18 19:15 22:20 Temperature 97.8 F Pulse Rate 78 72 Respiratory 16 14 Rate Blood Pressure 102/66 109/72 O2 Sat by Pulse 99 100 Oximetry EKG Findings - EKG Comments: EKG Findings:: EKG demonstrates a normal sinus rhythm with a ventricular rate of 63. PA interval 144. QRS 92. QTC 464. No acute ST segment elevations or depressions concerning for ischemic changes Medical Decision Making - Medical Decision Making Upon arrival the patient is placed into room 26. A thorough history and physical exam was performed. I did evaluate the patient's rash which does appear consistent with a contact dermatitis. Because this they do provide the patient with a tube of hydrocortisone. I also provided patient with 60 mg of prednisone and a dose of Pepcid. The patient is refusing Benadryl this time as she does not like how it makes her feel. I did recommend laboratory studies and EKG. I also recommended a chest x-ray. The patient Jane's the chest x-ray. States that she does not want the radiation exposure. I did discuss the risks of not proceeding and the patient understood. Upon return of the results White blood cell count 8.4, hemoglobin 13.2, hematocrit 30.7, platelets 295. CMP is unremarkable. Urinalysis and urine hCG is negative. I discussed these results with the patient. She does report to improvement in her pruritus. At this time the patient will be discharged home and given a short course of prednisone. She is also to take the loratadine at home. Continue to use the hydrocortisone cream. 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 She should also have a full cardiac workup because of her presyncopal sensations to include Holter monitoring and echo. The patient has any new or worsening symptoms she should return to the emergency room. Patient was in agreement with the treatment plan. The patient was discharged home in stable condition - Lab Data Result diagrams: 11/23/18 20:35 11/23/18 20:35 Lab Results 11/23/18 11/23/18 11/23/18 Range/Units 20:35 20:35 21:00 WBC 8.4 (3.8-10.6) k/uL RBC 4.05 (3.80-5.40) m/uL Hgb 13.2 (11.4-16.0) gm/dL Hct 38.7 (34.0-46.0) % MCV 95.6 (80.0-100.0) fL MCH 32.6 (25.0-35.0) pg MCHC 34.1 (31.0-37.0) g/dL RDW 15.0 (11.5-15.5) % Plt Count 295 (150-450) k/uL Neutrophils % 66 % Lymphocytes % 27 % Monocytes % 4 % Eosinophils % 1 % Basophils % 1 % Neutrophils # 5.6 (1.3-7.7) k/uL Lymphocytes # 2.3 (1.0-4.8) k/uL Monocytes # 0.3 (0-1.0) k/uL Eosinophils # 0.1 (0-0.7) k/uL Basophils # 0.0 (0-0.2) k/uL Sodium 140 (137-145) mmol/L Potassium 4.1 (3.5-5.1) mmol/L Chloride 105 (98-107) mmol/L Carbon Dioxide 26 (22-30) mmol/L Anion Gap 9 mmol/L BUN 12 (7-17) mg/dL Creatinine 0.67 (0.52-1.04) mg/dL Est GFR (CKD-EPI)AfAm >90 (>60 ml/min/1.73 sqM) Est GFR (CKD-EPI)NonAf >90 (>60 ml/min/1.73 sqM) Glucose 99 (74-99) mg/dL Calcium 9.4 (8.4-10.2) mg/dL Total Bilirubin 0.2 (0.2-1.3) mg/dL AST 28 (14-36) U/L ALT 16 (9-52) U/L Alkaline Phosphatase 83 (38-126) U/L Total Protein 7.5 (6.3-8.2) g/dL Albumin 4.6 (3.5-5.0) g/dL Urine Color Urine Appearance (Clear) Urine pH (5.0-8.0) Ur Specific [place] (1.001-1.035) Urine Protein (Negative) Urine Glucose (UA) (Negative) Urine Ketones (Negative) Urine Blood (Negative) Urine Nitrite (Negative) Urine Bilirubin (Negative) Urine Urobilinogen (<2.0) mg/dL Ur Leukocyte Esterase (Negative) Urine HCG, Qual Not Detected (Not Detectd) 11/23/18 Range/Units 21:00 WBC (3.8-10.6) k/uL RBC (3.80-5.40) m/uL Hgb (11.4-16.0) gm/dL Hct (34.0-46.0) % MCV (80.0-100.0) fL MCH (25.0-35.0) pg MCHC (31.0-37.0) g/dL RDW (11.5-15.5) % Plt Count (150-450) k/uL Neutrophils % % Lymphocytes % % Monocytes % % Eosinophils % % Basophils % % Neutrophils # (1.3-7.7) k/uL Lymphocytes # (1.0-4.8) k/uL Monocytes # (0-1.0) k/uL Eosinophils # (0-0.7) k/uL Basophils # (0-0.2) k/uL Sodium (137-145) mmol/L Potassium (3.5-5.1) mmol/L Chloride (98-107) mmol/L Carbon Dioxide (22-30) mmol/L Anion Gap mmol/L BUN (7-17) mg/dL Creatinine (0.52-1.04) mg/dL Est GFR (CKD-EPI)AfAm (>60 ml/min/1.73 sqM) Est GFR (CKD-EPI)NonAf (>60 ml/min/1.73 sqM) Glucose (74-99) mg/dL Calcium (8.4-10.2) mg/dL Total Bilirubin (0.2-1.3) mg/dL AST (14-36) U/L ALT (9-52) U/L Alkaline Phosphatase (38-126) U/L Total Protein (6.3-8.2) g/dL Albumin (3.5-5.0) g/dL Urine Color Yellow Urine Appearance Clear (Clear) Urine pH 5.5 (5.0-8.0) Ur Specific [place] 1.020 (1.001-1.035) Urine Protein Negative (Negative) Urine Glucose (UA) Negative (Negative) Urine Ketones Negative (Negative) Urine Blood Negative (Negative) Urine Nitrite Negative (Negative) Urine Bilirubin Negative (Negative) Urine Urobilinogen <2.0 (<2.0) mg/dL Ur Leukocyte Esterase Negative (Negative) Urine HCG, Qual (Not Detectd) Disposition Clinical Impression: Pre-syncope, Contact dermatitis Disposition: HOME SELF-CARE Condition: Stable Instructions (If sedation given, give patient instructions): Contact Dermatitis (ED), Dizziness (ED) Additional Instructions: Please take the loratadine as directed. Also apply the hydrocortisone cream twice daily. You may need a biopsy if your rash persists. Return to the emergency room for any new or worsening symptoms Prescriptions: predniSONE 20 mg PO BID #10 tab Is patient prescribed a controlled substance at d/c from ED?: No Referrals: None,Stated [Primary Care Provider] - 1-2 days Deana Perales MD [STAFF PHYSICIAN] - 1-2 days Time of Disposition: 22:09
[2018-11-23 22:21] VITALS: BP 109/72; PULSE 72; RESP 14
== END 2018-11-23 22:21 | disposition home or self-care (01) ==
LOC: EC 18:50
DX: L25.9 Unspecified contact dermatitis, unspecified cause (principal); R55 Syncope and collapse; R06.02 Shortness of breath; R53.1 Weakness; K50.90 Crohn's disease, unspecified, without complications; Z87.891 Personal history of nicotine dependence; Z88.1 Allergy status to other antibiotic agents; Z88.5 Allergy status to narcotic agent; Z88.6 Allergy status to analgesic agent; Z88.8 Allergy status to other drugs, medicaments and biological substances; Z91.040 Latex allergy status; Z91.048 Other nonmedicinal substance allergy status; Z79.899 Other long term (current) drug therapy; Z86.79 Personal history of other diseases of the circulatory system; Z98.890 Other specified postprocedural states; Z53.29 Procedure and treatment not carried out because of patient's decision for other reasons
CPT/HCPCS: 36415; 93005; 80053; 85025; 81003; 81025; 99284; J7512

== ENCOUNTER 2018-12-23 16:49 | Emergency (ER) | payer OTHER ==
[2018-12-23 16:56] VITALS: RESP 18; TEMP 98.8
[2018-12-23] MEDS ORDERED: SODIUM CHLORIDE 0.9% 500 ML 500 ML IV STA (17:57)
[2018-12-23] MEDS ORDERED: SODIUM CHLORIDE 0.9% 1,000 ML IV STA ×2 (17:57)
[2018-12-23] MEDS ORDERED: HYDROmorphone 0.5 MG/0.5 ML SYRINGE IVP STA (17:58)
[2018-12-23] MEDS ORDERED: HYDROmorphone 1 MG/ML 1 ML SYRINGE IVP STA (17:59)
[2018-12-23] MEDS ORDERED: KETOROLAC 30 MG/ML 1 ML VIAL IVP STA (18:02)
[2018-12-23] MEDS ORDERED: DEXAMETHASONE SOD PHOSPHATE 10 MG/ML 1 ML VIAL IV STA (18:02)
--- NOTE | 2018-12-23 18:02 | ED ---
Nausea/Vomiting/Diarrhea HPI - General Chief complaint: Nausea/Vomiting/Diarrhea Stated complaint: vomiting, fever Time Seen by Provider: 12/23/18 17:44 Source: patient, RN notes reviewed, old records reviewed Mode of arrival: ambulatory Limitations: no limitations - History of Present Illness Initial comments: This is a 28-year-old female the ER for evaluation history of Crohn's disease. Patient coming in for multiple complaints cough congestion feels like she has the flu fevers aches and bodyaches. Patient for stroke Crohn's disease and is having some bowel pain and diarrhea. No blood. No weakness nausea and lightheadedness. She has not been taking her Crohn's medications as directed. She is not know that she's had a nap control fever. But has not felt well. MD complaint: nausea, vomiting, diarrhea, abdominal pain, other (Body 8) -: days(s) Description of Vomiting: watery Description of Diarrhea: water Associated Abdominal Pain: Yes Location: diffuse Radiation: none Severity: moderate Severity scale (1-10): 6 Quality: aching Consistency: constant Improves with: none Worsens with: none Associated Symptoms: myalgias, fever/chills, loss of appetite, nausea/vomiting, weakness - Related Data Home Medications Medication Instructions Recorded Confirmed Loperamide [Imodium] 6 mg PO DAILY 02/23/18 11/23/18 Loratadine 10 mg PO TID PRN 02/23/18 11/23/18 Adalimumab [Humira Pediatric 40 mg SQ Q14D 06/29/18 11/23/18 Crohn's] Previous Rx's Medication Instructions Recorded predniSONE 20 mg PO BID #10 tab 11/23/18 Allergies Allergy/AdvReac Type Severity Reaction Status Date / Time cat dander Allergy Swelling Verified 12/23/18 16:56 ciprofloxacin [From Cipro] Allergy Unknown Verified 12/23/18 16:56 ciprofloxacin HCl Allergy Unknown Verified 12/23/18 16:56 [From Cipro] codeine Allergy Unknown Verified 12/23/18 16:56 diphenhydramine HCl Allergy Unknown Verified 12/23/18 16:56 [From Benadryl] Latex, Natural Rubber Allergy Unknown Verified 12/23/18 16:56 meperidine HCl [From Demerol] Allergy Unknown Verified 12/23/18 16:56 morphine Allergy Unknown Verified 12/23/18 16:56 acetaminophen [From Vicodin] AdvReac Nausea Verified 12/23/18 16:56 hydrocodone [From Vicodin] AdvReac Nausea Verified 12/23/18 16:56 metronidazole [From Flagyl] AdvReac Unknown Verified 12/23/18 16:56 Review of Systems ROS Statement: Those systems with pertinent positive or pertinent negative responses have been documented in the HPI. ROS Other: All systems not noted in ROS Statement are negative. 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 Ileal pouch and anal anastomosis in September 2010. Past Anesthesia/Blood Transfusion Reactions: No Reported Reaction Past Psychological History: Anxiety, Bipolar, Depression Smoking Status: Former smoker Past Alcohol Use History: None Reported Past Drug Use History: Marijuana - Past Family History Father Family Medical History: Unable to Obtain Additional Family Medical History / Comment(s): Father is 54 years of age and has a problem with alcoholism. Mother Additional Family Medical History / Comment(s): Mother is in her 50s and has mental health issues as well as treatment currently for cat scratch fever. Brother(s) Additional Family Medical History / Comment(s): Patient has 2 brothers one has problems with IBS and one has anger management issues. Patient does not have any sisters. She does not have any children of her own. She states there was a grandmother with Crohn's disease. General Exam Limitations: no limitations General appearance: alert, in no apparent distress Head exam: Present: atraumatic, normocephalic, normal inspection Eye exam: Present: normal appearance, PERRL, EOMI. Absent: scleral icterus, conjunctival injection, periorbital swelling ENT exam: Present: normal exam, mucous membranes moist Neck exam: Present: normal inspection. Absent: tenderness, meningismus, lymphadenopathy Respiratory exam: Present: normal lung sounds bilaterally. Absent: respiratory distress, wheezes, rales, rhonchi, stridor Cardiovascular Exam: Present: regular rate, normal rhythm, normal heart sounds. Absent: systolic murmur, diastolic murmur, rubs, gallop, clicks GI/Abdominal exam: Present: soft, normal bowel sounds. Absent: distended, tenderness, guarding, rebound, rigid Extremities exam: Present: normal inspection, full ROM, normal capillary refill. Absent: tenderness, pedal edema, joint swelling, calf tenderness Back exam: Present: normal inspection Neurological exam: Present: alert, oriented X3, CN II-XII intact Psychiatric exam: Present: normal affect, normal mood Skin exam: Present: warm, dry, intact, normal color. Absent: rash Course Vital Signs 12/23/18 12/23/18 12/23/18 16:51 20:20 21:01 Temperature 98.8 F Pulse Rate 100 60 70 Respiratory 18 18 18 Rate Blood Pressure 113/69 106/72 102/69 O2 Sat by Pulse 98 100 98 Oximetry - Reevaluation(s) Reevaluation #1: Medical records Symptoms improved here in the ER with pain control and hydration Medical Decision Making - Medical Decision Making 28 female with multiple Crohn's exacerbation. Patient given pain control and hydration here in the ER. Patient can be discharged home - Lab Data Result diagrams: 12/23/18 18:56 12/23/18 18:56 Lab Results 12/23/18 12/23/18 12/23/18 Range/Units 18:40 18:40 18:56 WBC (3.8-10.6) k/uL RBC (3.80-5.40) m/uL Hgb (11.4-16.0) gm/dL Hct (34.0-46.0) % MCV (80.0-100.0) fL MCH (25.0-35.0) pg MCHC (31.0-37.0) g/dL RDW (11.5-15.5) % Plt Count (150-450) k/uL Neutrophils % % Lymphocytes % % Monocytes % % Eosinophils % % Basophils % % Neutrophils # (1.3-7.7) k/uL Lymphocytes # (1.0-4.8) k/uL Monocytes # (0-1.0) k/uL Eosinophils # (0-0.7) k/uL Basophils # (0-0.2) k/uL Sodium 138 (137-145) mmol/L Potassium 3.6 (3.5-5.1) mmol/L Chloride 106 (98-107) mmol/L Carbon Dioxide 24 (22-30) mmol/L Anion Gap 8 mmol/L BUN 9 (7-17) mg/dL Creatinine 0.62 (0.52-1.04) mg/dL Est GFR (CKD-EPI)AfAm >90 (>60 ml/min/1.73 sqM) Est GFR (CKD-EPI)NonAf >90 (>60 ml/min/1.73 sqM) Glucose 82 (74-99) mg/dL Plasma Lactic Acid Chris (0.7-2.0) mmol/L Calcium 9.2 (8.4-10.2) mg/dL Phosphorus 3.0 (2.5-4.5) mg/dL Magnesium 1.9 (1.6-2.3) mg/dL Total Bilirubin 0.5 (0.2-1.3) mg/dL AST 19 (14-36) U/L ALT 13 (9-52) U/L Alkaline Phosphatase 73 (38-126) U/L Total Protein 6.9 (6.3-8.2) g/dL Albumin 4.2 (3.5-5.0) g/dL Amylase 52 (30-110) U/L Lipase 163 (23-300) U/L Urine Color Yellow Urine Appearance Clear (Clear) Urine pH 6.0 (5.0-8.0) Ur Specific [place] 1.022 (1.001-1.035) Urine Protein Trace H (Negative) Urine Glucose (UA) Negative (Negative) Urine Ketones 1+ H (Negative) Urine Blood Negative (Negative) Urine Nitrite Negative (Negative) Urine Bilirubin Negative (Negative) Urine Urobilinogen <2.0 (<2.0) mg/dL Ur Leukocyte Esterase Negative (Negative) Urine HCG, Qual Not Detected (Not Detectd) Influenza Type A RNA (Not Detectd) Influenza Type B (PCR) (Not Detectd) 12/23/18 12/23/18 12/23/18 Range/Units 18:56 18:56 18:56 WBC 6.2 (3.8-10.6) k/uL RBC 3.85 (3.80-5.40) m/uL Hgb 12.9 (11.4-16.0) gm/dL Hct 37.6 (34.0-46.0) % MCV 97.7 (80.0-100.0) fL MCH 33.5 (25.0-35.0) pg MCHC 34.3 (31.0-37.0) g/dL RDW 12.7 (11.5-15.5) % Plt Count 282 (150-450) k/uL Neutrophils % 59 % Lymphocytes % 32 % Monocytes % 5 % Eosinophils % 1 % Basophils % 0 % Neutrophils # 3.7 (1.3-7.7) k/uL Lymphocytes # 2.0 (1.0-4.8) k/uL Monocytes # 0.3 (0-1.0) k/uL Eosinophils # 0.0 (0-0.7) k/uL Basophils # 0.0 (0-0.2) k/uL Sodium (137-145) mmol/L Potassium (3.5-5.1) mmol/L Chloride (98-107) mmol/L Carbon Dioxide (22-30) mmol/L Anion Gap mmol/L BUN (7-17) mg/dL Creatinine (0.52-1.04) mg/dL Est GFR (CKD-EPI)AfAm (>60 ml/min/1.73 sqM) Est GFR (CKD-EPI)NonAf (>60 ml/min/1.73 sqM) Glucose (74-99) mg/dL Plasma Lactic Acid Chris 0.7 (0.7-2.0) mmol/L Calcium (8.4-10.2) mg/dL Phosphorus (2.5-4.5) mg/dL Magnesium (1.6-2.3) mg/dL Total Bilirubin (0.2-1.3) mg/dL AST (14-36) U/L ALT (9-52) U/L Alkaline Phosphatase (38-126) U/L Total Protein (6.3-8.2) g/dL Albumin (3.5-5.0) g/dL Amylase (30-110) U/L Lipase (23-300) U/L Urine Color Urine Appearance (Clear) Urine pH (5.0-8.0) Ur Specific [place] (1.001-1.035) Urine Protein (Negative) Urine Glucose (UA) (Negative) Urine Ketones (Negative) Urine Blood (Negative) Urine Nitrite (Negative) Urine Bilirubin (Negative) Urine Urobilinogen (<2.0) mg/dL Ur Leukocyte Esterase (Negative) Urine HCG, Qual (Not Detectd) Influenza Type A RNA Not Detected (Not Detectd) Influenza Type B (PCR) Not Detected (Not Detectd) - Radiology Data Radiology results: report reviewed (X-ray chest and pelvis is negative for acute disease), image reviewed Disposition Clinical Impression: Dehydration, Nausea & vomiting, Abdominal pain Disposition: HOME SELF-CARE Condition: Good Instructions (If sedation given, give patient instructions): Acute Nausea and Vomiting (ED), Abdominal Pain (ED) Is patient prescribed a controlled substance at d/c from ED?: No Referrals: None,Stated [Primary Care Provider] - 1-2 days
[2018-12-23 18:54] LABS: Appearance,Urine Clear (Clear); Bilirubin,Urine Negative (Negative); Blood,Urine Negative (Negative); Color,Urine Yellow; Glucose,Urine (UA) Negative (Negative); Ketones,Urine 1+ (Negative); Leukocyte Esterase,Urine Negative (Negative); Nitrite,Urine Negative (Negative); Protein,Urine Trace (Negative); Specific Gravity,Urine 1.022 (1.001-1.035); Urobilinogen,Urine <2.0 mg/dL (<2.0)
[2018-12-23 19:29] LABS: ALT 13 U/L (9-52); AST 19 U/L (14-36); African American GFR (CKD) >90 (>60 ml/min/1.73 sqM); Albumin 4.2 g/dL (3.5-5.0); Alkaline Phosphatase 73 U/L (38-126); Amylase 52 U/L (30-110); Anion Gap 8 mmol/L; Blood Urea Nitrogen 9 mg/dL (7-17); Calcium 9.2 mg/dL (8.4-10.2); Carbon Dioxide 24 mmol/L (22-30); Chloride 106 mmol/L (98-107); Glucose 82 mg/dL (74-99); Magnesium 1.9 mg/dL (1.6-2.3); Potassium 3.6 mmol/L (3.5-5.1); Sodium 138 mmol/L (137-145); Total Bilirubin 0.5 mg/dL (0.2-1.3); Total Protein 6.9 g/dL (6.3-8.2)
[2018-12-23 19:42] LABS: Basophils % (A) 0 %; Eosinophils % (A) 1 %; HCT 37.6 % (34.0-46.0); HGB 12.9 gm/dL (11.4-16.0); Lymphocytes % (A) 32 %; MCH 33.5 pg (25.0-35.0); MCHC 34.3 g/dL (31.0-37.0); MCV 97.7 fL (80.0-100.0); Mean Platelet Volume 6.2; Monocytes # (A) 0.3 k/uL (0-1.0); Monocytes % (A) 5 %; Neutrophils # (A) 3.7 k/uL (1.3-7.7); Neutrophils % (A) 59 %; Platelet Count 282 k/uL (150-450); RBC 3.85 m/uL (3.80-5.40); RDW 12.7 % (11.5-15.5); WBC 6.2 k/uL (3.8-10.6)
--- NOTE | 2018-12-23 20:23 | XR ---
EXAMINATION TYPE: XR abdomen acute w cxr DATE OF EXAM: 12/23/2018 COMPARISON: NONE HISTORY: Pain TECHNIQUE: 4 views, including upright chest and upright abdomen and 2 supine abdominal pelvic views FINDINGS: There is no acute chest process. There is no pneumoperitoneum. The bowel gas pattern is unremarkable as there is air throughout nondil ated small and large bowel. No sizeable air fluid levels. No mass or mass effects are seen. No unusual calcifications. No acute skeletal findings. IMPRESSION: No acute radiographic process.
[2018-12-23 21:02] VITALS: BP 102/69; PULSE 70
== END 2018-12-23 21:03 | disposition home or self-care (01) ==
LOC: EC 16:49
DX: E86.0 Dehydration (principal); K50.90 Crohn's disease, unspecified, without complications; R05 Cough; R50.9 Fever, unspecified; M79.10 Myalgia, unspecified site; R09.89 Other specified symptoms and signs involving the circulatory and respiratory systems; R53.1 Weakness; Z87.891 Personal history of nicotine dependence; Z88.1 Allergy status to other antibiotic agents; Z88.5 Allergy status to narcotic agent; Z88.6 Allergy status to analgesic agent; Z88.8 Allergy status to other drugs, medicaments and biological substances; Z91.040 Latex allergy status; Z91.048 Other nonmedicinal substance allergy status; Z79.899 Other long term (current) drug therapy; Z90.49 Acquired absence of other specified parts of digestive tract; Z93.2 Ileostomy status; Z83.79 Family history of other diseases of the digestive system
CPT/HCPCS: 36415; 80053; 82150; 83605; 83690; 83735; 84100; 85025; 81003; 81025; 87502; 74022; 99284; 96374; 96375 ×2; 96361 ×3; J1100; J1885; J1170

== ENCOUNTER → 2019-01-24 | Outpatient (CLI) | payer OTHER | END | disposition home or self-care (01) | LOC: LABWHC1 14:03 | PROVIDERS: ATTEND General Practice | DX: K51.011 Ulcerative (chronic) pancolitis with rectal bleeding (principal); Z51.81 Encounter for therapeutic drug level monitoring | CPT/HCPCS: 36415; 82542; 82657; 86140 ==

== ENCOUNTER → 2019-02-09 | Outpatient (CLI) | payer OTHER ==
[2019-02-09 20:26] LABS: Hepatitis B Core IgM Non-Reactive (Non-Reactive); Hepatitis B Surface AB- Quant 139.7 mIU/mL; Hepatitis B Surface Antibody Reactive (Non-Reactive); Hepatitis B Surface Antigen Non-Reactive (Non-Reactive)
== END | disposition home or self-care (01) ==
LOC: LABWHC1 14:34
PROVIDERS: ATTEND General Practice
DX: K50.018 Crohn's disease of small intestine with other complication (principal); Z51.81 Encounter for therapeutic drug level monitoring
CPT/HCPCS: 36415; 86704; 86705; 86706; 87340

== ENCOUNTER 2019-03-03 13:08 | Emergency (ER) | payer OTHER ==
[2019-03-03 13:48] VITALS: RESP 18
[2019-03-03] MEDS ORDERED: SODIUM CHLORIDE 0.9% 1,000 ML IV ONE (14:05)
[2019-03-03] MEDS ORDERED: KETOROLAC 30 MG/ML 1 ML VIAL IVP STA (14:05)
[2019-03-03] MEDS ORDERED: ONDANSETRON 4 MG/2 ML VIAL IVP STA (14:06)
[2019-03-03] MEDS ORDERED: DEXAMETHASONE SOD PHOSPHATE 4 MG/ML 1 ML VIAL IV STA (14:06)
[2019-03-03] MEDS ORDERED: HYDROmorphone 0.5 MG/0.5 ML SYRINGE IVP STA (15:31)
[2019-03-03] MEDS ORDERED: METOCLOPRAMIDE 5 MG/ML 2 ML VIAL IVP STA (15:32)
[2019-03-03 16:01] VITALS: BP 108/70; PULSE 88; TEMP 98.7
--- NOTE | 2019-03-03 16:19 | ED ---
Headache HPI - General Chief Complaint: Headache Stated Complaint: Migraine Time Seen by Provider: 03/03/19 13:58 Mode of arrival: ambulatory Limitations: no limitations - History of Present Illness Initial Comments: 29-year-old female with history of chronic migraines, Crohn's disease presenting to the emergency department today for chief complaint of migraine headache. Patient states she has her typical migraine which consisted photophobia some nausea she occasionally has vomiting. Patient denies any neck stiffness denies fevers patient denies any sudden onset of headache of this being the worse headache of her life. She states because it was persistent since yesterday evening she presented to the ER for abortive treatment. Patient states she was not able to tolerate oral intake such as medications for treatment secondary to the nausea. Patient denies any dizziness speech changes because of the upper or lower extremities or any other focalized neurological deficits. Patient states usually gets Toradol and occasionally Dilaudid for these headaches and they go away. Remaining review of systems negative upon arrival patient appears nontoxic - Related Data Home Medications Medication Instructions Recorded Confirmed Loperamide [Imodium] 6 mg PO DAILY 02/23/18 11/23/18 Loratadine 10 mg PO TID PRN 02/23/18 11/23/18 Adalimumab [Humira Pediatric 40 mg SQ Q14D 06/29/18 11/23/18 Crohn's] Previous Rx's Medication Instructions Recorded predniSONE 20 mg PO BID #10 tab 11/23/18 Butalb/Acetaminophen/Caffeine 1 - 2 cap PO Q8HR PRN 1 Days #3 cap 03/03/19 [Fioricet 50-300-40 mg Capsule] Allergies Allergy/AdvReac Type Severity Reaction Status Date / Time cat dander Allergy Swelling Verified 12/23/18 16:56 ciprofloxacin [From Cipro] Allergy Unknown Verified 12/23/18 16:56 ciprofloxacin HCl Allergy Unknown Verified 12/23/18 16:56 [From Cipro] codeine Allergy Unknown Verified 12/23/18 16:56 diphenhydramine HCl Allergy Unknown Verified 12/23/18 16:56 [From Benadryl] Latex, Natural Rubber Allergy Unknown Verified 12/23/18 16:56 meperidine HCl [From Demerol] Allergy Unknown Verified 12/23/18 16:56 morphine Allergy Unknown Verified 12/23/18 16:56 acetaminophen [From Vicodin] AdvReac Nausea Verified 12/23/18 16:56 hydrocodone [From Vicodin] AdvReac Nausea Verified 12/23/18 16:56 metronidazole [From Flagyl] AdvReac Unknown Verified 12/23/18 16:56 Review of Systems ROS Statement: Those systems with pertinent positive or pertinent negative responses have been documented in the HPI. ROS Other: All systems not noted in ROS Statement are negative. Past Medical History Past Medical History: Fibromyalgia, Supraventricular Tachycardia (SVT) Additional Past Medical History / Comment(s): crohns, migraine álvarez, ovarian cysts History of Any Multi-Drug Resistant Organisms: ESBL Date of last positivie culture/infection: 08/08/2014 MDRO Source:: Groin-ESBL Klebsiella Past Surgical History: Appendectomy, Bowel Resection, Cardiac Ablation Additional Past Surgical History / Comment(s): J-POUCH, subtotal colectomy with ileostomy secondary to crohn's in January 2010 at [facility] in [facility]. Ileal pouch and anal anastomosis in September 2010. Past Anesthesia/Blood Transfusion Reactions: No Reported Reaction Past Psychological History: Anxiety, Bipolar, Depression Smoking Status: Former smoker Past Alcohol Use History: None Reported Past Drug Use History: Marijuana - Past Family History Father Family Medical History: Unable to Obtain Additional Family Medical History / Comment(s): Father is 54 years of age and has a problem with alcoholism. Mother Additional Family Medical History / Comment(s): Mother is in her 50s and has mental health issues as well as treatment currently for cat scratch fever. Brother(s) Additional Family Medical History / Comment(s): Patient has 2 brothers one has problems with IBS and one has anger management issues. Patient does not have any sisters. She does not have any children of her own. She states there was a grandmother with Crohn's disease. General Exam - General Exam Comments Initial Comments: General: The patient is awake and alert, in no distress Eye: +3 mm pupils are equal, round and reactive to light, extra-ocular mov ements are intact. No nystagmus. There is normal conjunctiva bilaterally. No signs of icterus. Ears, nose, mouth and throat: There are moist mucous membranes and no oral lesions. No nuchal irritation. Neck: The neck is supple, there is no tenderness or JVD. Cardiovascular: There is a regular rate and rhythm. No murmur, rub or gallop is appreciated. Respiratory: Lungs are clear to auscultation, respirations are non-labored, breath sounds are equal. No wheezes, stridor, rales, or rhonchi. Musculoskeletal: Normal ROM, no tenderness. Strength 5/5. Sensation intact. Radial pulses equal bilaterally 2+. Neurological: A&O x 3. CN II-XII intact, There are no obvious motor or sensory deficits. Coordination appears grossly intact. Speech is normal. no gait ataxia. Skin: Skin is warm and dry and no rashes or lesions are noted. Psychiatric: Cooperative, appropriate mood & affect, normal judgment. Limitations: no limitations Course Vital Signs 03/03/19 03/03/19 13:43 16:00 Temperature 99.3 F 98.7 F Pulse Rate 91 88 Respiratory 18 18 Rate Blood Pressure 111/73 108/70 O2 Sat by Pulse 96 98 Oximetry Medical Decision Making - Medical Decision Making 21-year-old female presents today for chief complaint of migraine headache crissy ent states is very typical for her migraines. Patient states Toradol and sometimes Dilaudid typically help. After administration of both medications patient states she is feeling significantly better and requesting discharge. Patient was given IV fluid bolus. No focal neurological deficits patient appears well no signs of meningitis. Return parameters were discussed at length and patient was discharged. Well-appearing please with care and plan I did recommend outpatient neurological evaluation for chronic migraines and patient was prescribed a prescription for Fioricet discussed the case with attending provider Dr. Talbot Disposition Clinical Impression: Headache, Hx of migraine headaches Disposition: HOME SELF-CARE Condition: Good Instructions (If sedation given, give patient instructions): Acute Headache (ED) Additional Instructions: Please use medication as discussed. Please follow-up with family doctor in the next 2 days. Please return to emergency room if the symptoms increase or worsen or for any other concerns. Prescriptions: Butalb/Acetaminophen/Caffeine [Fioricet 50-300-40 mg Capsule] 1 - 2 cap PO Q8HR PRN 1 Days #3 cap PRN Reason: Headache Is patient prescribed a controlled substance at d/c from ED?: No Referrals: None,Stated [Primary Care Provider] - 1-2 days [facility] [NON-STAFF] - 1-2 days Time of Disposition: 16:19
== END 2019-03-03 17:09 | disposition home or self-care (01) ==
LOC: EC 13:08
DX: R51 Headache (principal); R11.2 Nausea with vomiting, unspecified; Z86.69 Personal history of other diseases of the nervous system and sense organs; Z79.899 Other long term (current) drug therapy; Z91.09 Other allergy status, other than to drugs and biological substances; Z88.1 Allergy status to other antibiotic agents; Z88.5 Allergy status to narcotic agent; Z91.040 Latex allergy status; Z91.048 Other nonmedicinal substance allergy status; Z88.6 Allergy status to analgesic agent; Z88.8 Allergy status to other drugs, medicaments and biological substances; Z87.891 Personal history of nicotine dependence
CPT/HCPCS: 99283; 96374; 96375 ×3; 96361; J1100; J2765; J1885; J1170

== ENCOUNTER 2019-11-06 21:45 | Emergency (ER) | payer OTHER ==
[2019-11-06] MEDS ORDERED: SODIUM CHLORIDE 0.9% 1,000 ML IV STA (22:36)
[2019-11-06] MEDS ORDERED: ONDANSETRON 4 MG/2 ML VIAL IVP STA (22:36)
[2019-11-06] MEDS ORDERED: HYDROmorphone 1 MG/ML 1 ML SYRINGE IVP STA (22:37)
[2019-11-06 23:11] LABS: Basophils % (A) 0 %; Eosinophils # (A) 0.1 k/uL (0-0.7); Eosinophils % (A) 1 %; HCT 37.3 % (34.0-46.0); HGB 12.2 gm/dL (11.4-16.0); Lymphocytes # (A) 2.9 k/uL (1.0-4.8); Lymphocytes % (A) 31 %; MCH 32.1 pg (25.0-35.0); MCHC 32.8 g/dL (31.0-37.0); Mean Platelet Volume 7.7; Monocytes # (A) 0.6 k/uL (0-1.0); Monocytes % (A) 6 %; Neutrophils # (A) 5.8 k/uL (1.3-7.7); Neutrophils % (A) 61 %; Platelet Count 262 k/uL (150-450); RBC 3.81 m/uL (3.80-5.40); RDW 12.7 % (11.5-15.5); WBC 9.4 k/uL (3.8-10.6)
[2019-11-06 23:19] LABS: Appearance,Urine Cloudy (Clear); Bilirubin,Urine 2+ (Negative); Blood,Urine Negative (Negative); Calcium Oxalate Crystals,Urine Moderate /hpf; Color,Urine Dark Yellow; Glucose,Urine (UA) Negative (Negative); Hyaline Casts,Urine 3 /lpf (0-2); Ketones,Urine Trace (Negative); Leukocyte Esterase,Urine Negative (Negative); Mucus,Urine Many /hpf; Nitrite,Urine Negative (Negative); Protein,Urine 1+ (Negative); RBC,Urine 1 /hpf (0-5); Specific Gravity,Urine 1.033 (1.001-1.035); Squamous Epithelial Cell,Urine 5 /hpf (0-4); WBC,Urine 2 /hpf (0-5)
[2019-11-06 23:20] LABS: ALT 7 U/L (4-34); AST 27 U/L (14-36); African American GFR (CKD) >90 (>60 ml/min/1.73 sqM); Albumin 4.1 g/dL (3.5-5.0); Alkaline Phosphatase 57 U/L (38-126); Amylase 58 U/L (30-110); Anion Gap 9 mmol/L; Blood Urea Nitrogen 10 mg/dL (7-17); Calcium 8.8 mg/dL (8.4-10.2); Carbon Dioxide 22 mmol/L (22-30); Chloride 106 mmol/L (98-107); Glucose 103 mg/dL (74-99); Non-African American GFR(CKD) >90 (>60 ml/min/1.73 sqM); Sodium 137 mmol/L (137-145); Total Bilirubin 0.3 mg/dL (0.2-1.3); Total Protein 6.5 g/dL (6.3-8.2)
[2019-11-06 23:46] LABS: Potassium 4.2 mmol/L (3.5-5.1)
--- NOTE | 2019-11-06 23:52 | ED ---
Abdominal Pain HPI - General Chief Complaint: Abdominal Pain Stated Complaint: Abd Pain Time Seen by Provider: 11/06/19 21:54 Source: patient Mode of arrival: ambulatory Limitations: no limitations - History of Present Illness Initial Comments: 29-year-old female patient with past medical history significant for Crohn's disease and ovarian cysts presents to the emergency department today for evaluation of left lower quadrant abdominal pain. Patient states that the pain has been coming and going for the last 4 days. States that today the pain became so intense she became nauseated and nearly vomited. Patient states the pain does radiate through to her back. She denies any hematuria, dysuria, urinary frequency, urinary urgency. Denies chance of . Denies abnormal vaginal bleeding or discharge. Denies any concern for sexually transm itted infections. Patient states she has been having watery diarrhea increasing over the last several days. States that she does generally have diarrhea due to her Crohn's disease but this is more watery than usual. She denies any fever or chills. Denies hematochezia, melena, or hematemesis. Patient denies any recent rash, cough, shortness of breath, chest pain, constipation, back pain, numbness, tingling, dizziness, weakness, headache, visual changes, or any other complaints. - Related Data Home Medications Medication Instructions Recorded Confirmed Loperamide [Imodium] 6 mg PO DAILY 02/23/18 11/23/18 Loratadine 10 mg PO TID PRN 02/23/18 11/23/18 Adalimumab [Humira Pediatric 40 mg SQ Q14D 06/29/18 11/23/18 Crohn's] Previous Rx's Medication Instructions Recorded predniSONE [Deltasone] 20 mg PO BID #10 tab 11/23/18 Butalb/Acetaminophen/Caffeine 1 - 2 cap PO Q8HR PRN 1 Days #3 cap 03/03/19 [Fioricet 50-300-40 mg Capsule] Allergies Allergy/AdvReac Type Severity Reaction Status Date / Time cat dander Allergy Swelling Verified 11/06/19 21:51 ciprofloxacin [From Cipro] Allergy Unknown Verified 11/06/19 21:51 ciprofloxacin HCl Allergy Unknown Verified 11/06/19 21:51 [From Cipro] codeine Allergy Unknown Verified 11/06/19 21:51 diphenhydramine HCl Allergy Unknown Verified 11/06/19 21:51 [From Benadryl] Latex, Natural Rubber Allergy Unknown Verified 11/06/19 21:51 meperidine HCl [From Demerol] Allergy Unknown Verified 11/06/19 21:51 morphine Allergy Unknown Verified 11/06/19 21:51 acetaminophen [From Vicodin] AdvReac Nausea Verified 11/06/19 21:51 hydrocodone [From Vicodin] AdvReac Nausea Verified 11/06/19 21:51 metronidazole [From Flagyl] AdvReac Unknown Verified 11/06/19 21:51 Review of Systems ROS Statement: Those systems with pertinent positive or pertinent negative responses have been documented in the HPI. ROS Other: All systems not noted in ROS Statement are negative. 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 Ileal pouch and anal anastomosis in September 2010. Past Anesthesia/Blood Transfusion Reactions: No Reported Reaction Past Psychological History: Anxiety, Bipolar, Depression Smoking Status: Former smoker Past Alcohol Use History: None Reported Past Drug Use History: Marijuana - Past Family History Father Family Medical History: Unable to Obtain Additional Family Medical History / Comment(s): Father is 54 years of age and has a problem with alcoholism. Mother Additional Family Medical History / Comment(s): Mother is in her 50s and has mental health issues as well as treatment currently for cat scratch fever. Brother(s) Additional Family Medical History / Comment(s): Patient has 2 brothers one has problems with IBS and one has anger management issues. Patient does not have any sisters. She does not have any children of her own. She states there was a grandmother with Crohn's disease. General Exam Limitations: no limitations General appearance: alert, in no apparent distress, other (This is a well- developed, well-nourished adult female patient in no acute distress. Vital signs upon presentation are temperature 99.1F, pulse 114, respirations 20, blood pressure 117/84, pulse ox 98% on room air.) Eye exam: Present: normal appearance, PERRL, EOMI. Absent: scleral icterus, conjunctival injection, periorbital swelling ENT exam: Present: normal exam, normal oropharynx, mucous membranes moist Respiratory exam: Present: normal lung sounds bilaterally. Absent: respiratory distress, wheezes, rales, rhonchi, stridor Cardiovascular Exam: Present: regular rate, normal rhythm, normal heart sounds. Absent: systolic murmur, diastolic murmur, rubs, gallop, clicks GI/Abdominal exam: Present: soft, tenderness (Left-sided abdominal tenderness), normal bowel sounds. Absent: distended, guarding, rebound, rigid Neurological exam: Present: alert, oriented X3, CN II-XII intact Psychiatric exam: Present: normal affect, normal mood Skin exam: Present: warm, dry, intact, normal color. Absent: rash Course Vital Signs 11/06/19 21:48 Temperature 99.1 F Pulse Rate 114 H Respiratory 20 Rate Blood Pressure 117/84 O2 Sat by Pulse 98 Oximetry Medical Decision Making - Medical Decision Making 29-year-old female patient with past medical history significant for ovarian cyst and Crohn's comes in with complaints of left pelvic pain. Physical examination did reveal left-sided abdominal tenderness. Labs reviewed and are relatively unremarkable. No evidence for urinary tract infection. HCG is negative. Transvaginal vaginal ultrasound was obtained and did show evidence for a 4 cm hemorrhagic ovarian cyst on the left side. KUB was negative. Patient's white blood cell count was normal and her temperature was normal. We did discuss ultrasound findings. She'll be discharged home with pain medication. She is instructed to follow-up with her tile molder for further evaluation as soon as possible. We did discuss signs and symptoms of ovarian torsion, she is instructed to return immediately should his any of these symptoms. Return parameters were discussed in detail. She verbalizes understanding and agrees with this plan. - Lab Data Result diagrams: 11/06/19 22:54 11/06/19 22:54 Lab Results 11/06/19 11/06/19 11/06/19 Range/Units 22:54 22:54 22:54 WBC 9.4 (3.8-10.6) k/uL RBC 3.81 (3.80-5.40) m/uL Hgb 12.2 (11.4-16.0) gm/dL Hct 37.3 (34.0-46.0) % MCV 98.0 (80.0-100.0) fL MCH 32.1 (25.0-35.0) pg MCHC 32.8 (31.0-37.0) g/dL RDW 12.7 (11.5-15.5) % Plt Count 262 (150-450) k/uL Neutrophils % 61 % Lymphocytes % 31 % Monocytes % 6 % Eosinophils % 1 % Basophils % 0 % Neutrophils # 5.8 (1.3-7.7) k/uL Lymphocytes # 2.9 (1.0-4.8) k/uL Monocytes # 0.6 (0-1.0) k/uL Eosinophils # 0.1 (0-0.7) k/uL Basophils # 0.0 (0-0.2) k/uL Sodium 137 (137-145) mmol/L Potassium 4.2 (3.5-5.1) mmol/L Chloride 106 (98-107) mmol/L Carbon Dioxide 22 (22-30) mmol/L Anion Gap 9 mmol/L BUN 10 (7-17) mg/dL Creatinine 0.70 (0.52-1.04) mg/dL Est GFR (CKD-EPI)AfAm >90 (>60 ml/min/1.73 sqM) Est GFR (CKD-EPI)NonAf >90 (>60 ml/min/1.73 sqM) Glucose 103 H (74-99) mg/dL Plasma Lactic Acid Chris (0.7-2.0) mmol/L Calcium 8.8 (8.4-10.2) mg/dL Total Bilirubin 0.3 (0.2-1.3) mg/dL AST 27 (14-36) U/L ALT 7 (4-34) U/L Alkaline Phosphatase 57 (38-126) U/L Total Protein 6.5 (6.3-8.2) g/dL Albumin 4.1 (3.5-5.0) g/dL Amylase 58 (30-110) U/L Lipase 122 (23-300) U/L Urine Color Dark Yellow Urine Appearance Cloudy H (Clear) Urine pH 6.0 (5.0-8.0) Ur Specific [place] 1.033 (1.001-1.035) Urine Protein 1+ H (Negative) Urine Glucose (UA) Negative (Negative) Urine Ketones Trace H (Negative) Urine Blood Negative (Negative) Urine Nitrite Negative (Negative) Urine Bilirubin 2+ H (Negative) Urine Urobilinogen 4.0 (<2.0) mg/dL Ur Leukocyte Esterase Negative (Negative) Urine RBC 1 (0-5) /hpf Urine WBC 2 (0-5) /hpf Ur Squamous Epith Cells 5 H (0-4) /hpf Calcium Oxalate Crystal Moderate H (None) /hpf Hyaline Casts 3 H (0-2) /lpf Urine Mucus Many H (None) /hpf Urine HCG, Qual (Not Detectd) 11/06/19 11/06/19 Range/Units 22:54 22:54 WBC (3.8-10.6) k/uL RBC (3.80-5.40) m/uL Hgb (11.4-16.0) gm/dL Hct (34.0-46.0) % MCV (80.0-100.0) fL MCH (25.0-35.0) pg MCHC (31.0-37.0) g/dL RDW (11.5-15.5) % Plt Count (150-450) k/uL Neutrophils % % Lymphocytes % % Monocytes % % Eosinophils % % Basophils % % Neutrophils # (1.3-7.7) k/uL Lymphocytes # (1.0-4.8) k/uL Monocytes # (0-1.0) k/uL Eosinophils # (0-0.7) k/uL Basophils # (0-0.2) k/uL Sodium (137-145) mmol/L Potassium (3.5-5.1) mmol/L Chloride (98-107) mmol/L Carbon Dioxide (22-30) mmol/L Anion Gap mmol/L BUN (7-17) mg/dL Creatinine (0.52-1.04) mg/dL Est GFR (CKD-EPI)AfAm (>60 ml/min/1.73 sqM) Est GFR (CKD-EPI)NonAf (>60 ml/min/1.73 sqM) Glucose (74-99) mg/dL Plasma Lactic Acid Chris 0.7 (0.7-2.0) mmol/L Calcium (8.4-10.2) mg/dL Total Bilirubin (0.2-1.3) mg/dL AST (14-36) U/L ALT (4-34) U/L Alkaline Phosphatase (38-126) U/L Total Protein (6.3-8.2) g/dL Albumin (3.5-5.0) g/dL Amylase (30-110) U/L Lipase (23-300) U/L Urine Color Urine Appearance (Clear) Urine pH (5.0-8.0) Ur Specific [place] (1.001-1.035) Urine Protein (Negative) Urine Glucose (UA) (Negative) Urine Ketones (Negative) Urine Blood (Negative) Urine Nitrite (Negative) Urine Bilirubin (Negative) Urine Urobilinogen (<2.0) mg/dL Ur Leukocyte Esterase (Negative) Urine RBC (0-5) /hpf Urine WBC (0-5) /hpf Ur Squamous Epith Cells (0-4) /hpf Calcium Oxalate Crystal (None) /hpf Hyaline Casts (0-2) /lpf Urine Mucus (None) /hpf Urine HCG, Qual Not Detected (Not Detectd) - Radiology Data Radiology results: report reviewed, image reviewed Two-view x-ray of the abdomen is obtained. Report is reviewed in its entirety. Impression by Dr. Isidro shows nonacute abdomen. No change. Disposition Clinical Impression: Hemorrhagic cyst of left ovary Disposition: HOME SELF-CARE Condition: Good Instructions (If sedation given, give patient instructions): Ovarian Cyst (ED) Additional Instructions: Take pain medication as directed. Call gynecology first thing in the morning to see if you can have an evaluation. Follow up with her primary care physician for recheck in 1-2 days. Return to the emergency department immediately for any new, worsening, or concerning symptoms. Is patient prescribed a controlled substance at d/c from ED?: No Referrals: Sandeep Graves MD [STAFF PHYSICIAN] - 1-2 days Time of Disposition: 01:24
--- NOTE | 2019-11-07 00:19 | XR ---
EXAMINATION TYPE: XR KUB DATE OF EXAM: 11/07/2019 COMPARISON: 12/23/2018 HISTORY: Abdominal pain TECHNIQUE: 2 views upright FINDINGS: Bowel gas pattern is normal. There is no sign of intestinal obstruction or pneumoperitoneum . Fecal pattern is normal. There is no sign of a mass. Lung bases are clear. There are no pathologic calcifications. IMPRESSION: Nonacute abdomen. No change.
[2019-11-07] MEDS ORDERED: HYDROmorphone 1 MG/ML 1 ML SYRINGE IVP STA (00:41)
--- NOTE | 2019-11-07 00:55 | US ---
EXAMINATION TYPE: US transvaginal DATE OF EXAM: 11/07/2019 COMPARISON: NONE CLINICAL HISTORY: Left pelvic pain. TECHNIQUE: . Transvaginal sonographic images were medically necessary to better assess the following anatomy: Endometrium measures 10 mm. Uterus measures 6.8 x 3.4 cm. Uterus has normal contour. Endometrium has normal echogenicity. The left ovary measures 5.2 x 3.8 cm. There is a complex 4.2 x 3.2 cm cyst on th e left ovary. Right ovary is not seen. Cul-de-sac is clear fluid. The color-flow Doppler images show normal arterial and venous inflow and outflow in the left ovary ar ilya. IMPRESSION: Complex cyst on the left ovary could be hemorrhagic cyst. No evidence of ovary torsion. Right ovary n ot seen. Normal uterus.
[2019-11-07] MEDS ORDERED: traMADol 50 MG STARTER PACK 3 TAB BTL PO STA (01:22)
[2019-11-07 01:49] VITALS: RESP 19
[2019-11-07] MEDS: IBUPROFEN 600 MG STARTER PACK 4 TAB BTL PO STA ×2 (01:52→01:57)
[2019-11-07 02:10] VITALS: BP 102/82; PULSE 78; TEMP 98.1
== END 2019-11-07 02:13 | disposition home or self-care (01) ==
LOC: EC 21:45
DX: N83.202 Unspecified ovarian cyst, left side (principal); R11.2 Nausea with vomiting, unspecified; R19.7 Diarrhea, unspecified; M79.7 Fibromyalgia; Z79.899 Other long term (current) drug therapy; Z87.891 Personal history of nicotine dependence; Z88.8 Allergy status to other drugs, medicaments and biological substances; Z88.5 Allergy status to narcotic agent; Z91.040 Latex allergy status; Z88.1 Allergy status to other antibiotic agents; Z91.048 Other nonmedicinal substance allergy status; Z87.19 Personal history of other diseases of the digestive system; Z90.49 Acquired absence of other specified parts of digestive tract; Z98.890 Other specified postprocedural states
CPT/HCPCS: 36415; 80053; 82150; 83605; 83690; 85025; 81001; 81025; 96374; 96375; 96376; 99284; J2405; J1170; 74018; 76830; 93976

== ENCOUNTER 2019-12-07 14:06 | Emergency (ER) | payer OTHER ==
[2019-12-07 14:31] VITALS: RESP 20
[2019-12-07] MEDS ORDERED: ALPRAZolam 1 MG TAB PO STA (14:59)
[2019-12-07 15:25] VITALS: TEMP 98.3
--- NOTE | 2019-12-07 15:35 | ED ---
Anxiety HPI - General Chief Complaint: Anxiety Stated Complaint: Tachycardia Time Seen by Provider: 12/07/19 14:35 Source: patient Mode of arrival: ambulatory - History of Present Illness Initial Comments: Patient is a 21-year-old female presenting to the emergency Department with complaints of increased anxiety and palpitations that started today. Patient states she has a history of SVT and did have a cardiac ablation about 10 years ago. Patient states she has remained relatively asymptomatic and when she has acute anxiety. Patient states about 1 month ago her best friend and since then she's been having bouts of anxiety, crying fits. Patient states today she went to help a friend and they ended up not being there so she became really emotional and frustrated and started having severe palpitations and shortness of breath. Patient states she walked to the ER to be examined. Patient denies any suicidal or homicidal thoughts. She states she does not take any anxiety or depression medication. She denies any chest pain at this time but does admit to some mild shortness of breath. She denies any fever, chills. She denies any abdominal pain, nausea or diarrhea. She states she doesn't history of Crohn's and inflammatory arthritis as well but does not follow-up regularly with her physicians. Patient states she does not want a psychiatric evaluation. Patient denies any other complaints at this time. Upon arrival to the ER, patient's vital signs are stable. - Related Data Home Medications: Home Medications Medication Instructions Recorded Confirmed Loperamide [Imodium] 6 mg PO DAILY 02/23/18 11/23/18 Loratadine 10 mg PO TID PRN 02/23/18 11/23/18 Adalimumab [Humira Pediatric 40 mg SQ Q14D 06/29/18 11/23/18 Crohn's] Previous Rx's Medication Instructions Recorded predniSONE [Deltasone] 20 mg PO BID #10 tab 11/23/18 Butalb/Acetaminophen/Caffeine 1 - 2 cap PO Q8HR PRN 1 Days #3 cap 03/03/19 [Fioricet 50-300-40 mg Capsule] ALPRAZolam [Xanax] 1 mg PO Q8H PRN 3 Days #9 tab 12/07/19 Allergies/Adverse Reactions: Allergies Allergy/AdvReac Type Severity Reaction Status Date / Time cat dander Allergy Swelling Verified 12/07/19 14:30 ciprofloxacin [From Cipro] Allergy Unknown Verified 12/07/19 14:30 ciprofloxacin HCl Allergy Unknown Verified 12/07/19 14:30 [From Cipro] codeine Allergy Unknown Verified 12/07/19 14:30 diphenhydramine HCl Allergy Unknown Verified 12/07/19 14:30 [From Benadryl] Latex, Natural Rubber Allergy Unknown Verified 12/07/19 14:30 meperidine HCl [From Demerol] Allergy Unknown Verified 12/07/19 14:30 morphine Allergy Unknown Verified 12/07/19 14:30 acetaminophen [From Vicodin] AdvReac Nausea Verified 12/07/19 14:30 hydrocodone [From Vicodin] AdvReac Nausea Verified 12/07/19 14:30 metronidazole [From Flagyl] AdvReac Unknown Verified 12/07/19 14:30 Review of Systems ROS Statement: Those systems with pertinent positive or pertinent negative responses have been documented in the HPI. ROS Other: All systems not noted in ROS Statement are negative. Past Medical History Past Medical History: Fibromyalgia, Supraventricular Tachycardia (SVT) Additional Past Medical History / Comment(s): crohns, migraine álvarez, ovarian cysts History of Any Multi-Drug Resistant Organisms: ESBL Date of last positivie culture/infection: 08/08/2014 MDRO Source:: Groin-ESBL Klebsiella Past Surgical History: Appendectomy, Bowel Resection, Cardiac Ablation Additional Past Surgical History / Comment(s): J-POUCH, subtotal colectomy with ileostomy secondary to crohn's in January 2010 at [facility] in [facility]. Ileal pouch and anal anastomosis in September 2010. Past Anesthesia/Blood Transfusion Reactions: No Reported Reaction Past Psychological History: Anxiety, Bipolar, Depression Smoking Status: Current some day smoker Past Alcohol Use History: None Reported Past Drug Use History: Marijuana - Past Family History Father Family Medical History: Unable to Obtain Additional Family Medical History / Comment(s): Father is 54 years of age and has a problem with alcoholism. Mother Additional Family Medical History / Comment(s): Mother is in her 50s and has mental health issues as well as treatment currently for cat scratch fever. Brother(s) Additional Family Medical History / Comment(s): Patient has 2 brothers one has problems with IBS and one has anger management issues. Patient does not have any sisters. She does not have any children of her own. She states there was a grandmother with Crohn's disease. General Exam - General Exam Comments Initial Comments: GENERAL: Patient is well-developed and well-nourished. Patient is nontoxic and in no acute distress, does appear anxious, teary-eyed during exam. HEAD: Atraumatic, normocephalic. EYES: Pupils equal round and reactive to light, extraocular movements intact, sclera anicteric, conjunctiva are normal. Eyelids were unremarkable. ENT: TMs normal, nares patent, oropharynx clear without exudates. Moist mucous membranes. NECK: Normal range of motion, supple without lymphadenopathy or JVD. LUNGS: Unlabored respirations. Breath sounds clear to auscultation bilaterally and equal. No wheezes rales or rhonchi. HEART: Regular rate and rhythm without murmurs, rubs or gallops. ABDOMEN: Soft, nontender, normoactive bowel sounds. No guarding, no rebound. No masses appreciated. : Deferred MUSCULOSKELETAL: Normal extremities with adequate strength and normal range of motion, no pitting or edema. No clubbing or cyanosis. NEUROLOGICAL: Patient is alert and oriented x 3. Motor and sensory are also intact. Cranial nerves II through XII grossly intact. Symmetrical smile. Normal speech, normal gait. PSYCH: Anxious, teary-eyed SKIN: Warm, Dry, normal turgor, no rashes. Patient has multiple very superficial abrasions to her right distal forearm, she does admit these are self-inflicted. Do not appear to be infected and are healing well. Limitations: no limitations Course Vital Signs 12/07/19 12/07/19 12/07/19 14:25 14:57 17:17 Temperature 100.8 F H 98.3 F Pulse Rate 98 79 Respiratory 20 20 Rate Blood Pressure 109/83 103/63 O2 Sat by Pulse 98 99 Oximetry Medical Decision Making - Medical Decision Making Patient is a 29-year-old female here with complaints of chest tightness, anxiety, palpitations increased today. She does have a history of SVT, had cardiac ablation 10 years ago. Her vital signs are stable upon arrival. EKG shows normal sinus rhythm, no signs of acute ischemic activity. Chest x-ray also reveals no acute abnormalities. Patient is not . I also gave patient 1 mg of Xanax. I did ask our EPS nurse to give patient some resources for counseling. The patient denies any suicidal or homicidal thoughts. She states she's been having a hard time coping with her best friend's . She has remained calm in the ER. Her vital signs remained stable. I discussed the patient that she is stable for discharge. I will give her a few tablets of Xa nax to use as needed for acute anxiety. I did recommend she follow up with her PCP. Patient is agreement with this plan of care. Strict return parameters were discussed with the patient and she verbalized understanding. Case discussed with Dr. Talbot. - Lab Data Lab Results 12/07/19 Range/Units 15:24 Urine HCG, Qual Not Detected (Not Detectd) - EKG Data EKG Comments: EKG shows normal sinus rhythm, normal ECG, no signs of acute ischemia. Ventricular rate 84, KS interval 136, QT 386. Disposition Clinical Impression: Acute anxiety, Palpitations Disposition: HOME SELF-CARE Condition: Stable Instructions (If sedation given, give patient instructions): Generalized Anxiety Disorder (ED) Additional Instructions: Please return to the Emergency Department if symptoms worsen or any other concerns. Follow-up with counseling information was provided to you. Prescriptions: ALPRAZolam [Xanax] 1 mg PO Q8H PRN 3 Days #9 tab PRN Reason: Anxiety Is patient prescribed a controlled substance at d/c from ED?: Yes When asked, does pt state using other controlled substances?: No If prescribed controlled substance>3 days was MAPS reviewed?: Prescribed <3 Days If opioid is for acute pain is fill amount 7 days or less?: Yes If Rx opioid, was Start Talking consent form obtained?: Yes Referrals: None,Stated [Primary Care Provider] - 1-2 days
--- NOTE | 2019-12-07 16:02 | XR ---
EXAMINATION TYPE: XR chest 2V DATE OF EXAM: 12/07/2019 COMPARISON: 07/15/2018 INDICATION: Anxiety tachycardia TECHNIQUE: Frontal and lateral views of the chest are obtained. FINDINGS: The heart size is normal. The pulmonary vasculature is normal. The lungs are clear. IMPRESSION: 1. No acute pulmonary process.
[2019-12-07 17:18] VITALS: BP 103/63; PULSE 79
== END 2019-12-07 17:20 | disposition home or self-care (01) ==
LOC: EC 14:06
DX: F41.9 Anxiety disorder, unspecified (principal); R00.2 Palpitations; R07.89 Other chest pain; S50.811A Abrasion of right forearm, initial encounter; F17.200 Nicotine dependence, unspecified, uncomplicated; Z88.5 Allergy status to narcotic agent; Z88.1 Allergy status to other antibiotic agents; Z88.6 Allergy status to analgesic agent; Z88.8 Allergy status to other drugs, medicaments and biological substances; Z91.048 Other nonmedicinal substance allergy status; Z91.040 Latex allergy status; Z87.19 Personal history of other diseases of the digestive system; Z79.899 Other long term (current) drug therapy; Z90.49 Acquired absence of other specified parts of digestive tract; Z86.79 Personal history of other diseases of the circulatory system; Y33.XXXA Other specified events, undetermined intent, initial encounter
CPT/HCPCS: 71046; 81025; 93005; 99284

== ENCOUNTER 2020-01-24 17:07 | Emergency (ER) | payer OTHER ==
[2020-01-24] MEDS ORDERED: SODIUM CHLORIDE 0.9% 500 ML 500 ML IV STA (19:00)
[2020-01-24] MEDS ORDERED: ONDANSETRON 4 MG/2 ML VIAL IVP STA (19:01)
[2020-01-24 19:34] LABS: Basophils # (A) 0.1 k/uL (0-0.2); Basophils % (A) 1 %; Eosinophils # (A) 0.1 k/uL (0-0.7); Eosinophils % (A) 1 %; HCT 35.7 % (34.0-46.0); HGB 12.1 gm/dL (11.4-16.0); Lymphocytes # (A) 2.2 k/uL (1.0-4.8); Lymphocytes % (A) 29 %; MCH 33.1 pg (25.0-35.0); MCHC 33.8 g/dL (31.0-37.0); MCV 97.8 fL (80.0-100.0); Mean Platelet Volume 7.1; Monocytes # (A) 0.3 k/uL (0-1.0); Monocytes % (A) 4 %; Neutrophils # (A) 4.8 k/uL (1.3-7.7); Neutrophils % (A) 63 %; Platelet Count 242 k/uL (150-450); RBC 3.65 m/uL (3.80-5.40); RDW 12.5 % (11.5-15.5); WBC 7.6 k/uL (3.8-10.6)
--- NOTE | 2020-01-24 19:37 | XR ---
EXAMINATION TYPE: XR chest 1V portable DATE OF EXAM: 01/24/2020 COMPARISON: 12/07/2019 HISTORY: Chest pain TECHNIQUE: FINDINGS: Heart and mediastinum are normal. Lungs are clear. Diaphragm is normal. Bony thorax is inta ct. There is probably calcified granuloma at the right pulmonary stephanie. IMPRESSION: No active cardiopulmonary disease. No adverse change.
[2020-01-24 19:40] VITALS: RESP 18; TEMP 99
[2020-01-24 19:47] LABS: ALT 12 U/L (4-34); AST 20 U/L (14-36); African American GFR (CKD) >90 (>60 ml/min/1.73 sqM); Albumin 4.1 g/dL (3.5-5.0); Alkaline Phosphatase 59 U/L (38-126); Anion Gap 7 mmol/L; Blood Urea Nitrogen 8 mg/dL (7-17); Calcium 8.8 mg/dL (8.4-10.2); Carbon Dioxide 25 mmol/L (22-30); Chloride 106 mmol/L (98-107); Glucose 134 mg/dL (74-99); Lipase 538 U/L (23-300); Magnesium 1.7 mg/dL (1.6-2.3); Non-African American GFR(CKD) >90 (>60 ml/min/1.73 sqM); Potassium 3.8 mmol/L (3.5-5.1); Sodium 138 mmol/L (137-145); Total Bilirubin 0.2 mg/dL (0.2-1.3); Total Protein 6.6 g/dL (6.3-8.2)
[2020-01-24 19:49] LABS: D-Dimer 0.29 mg/L FEU (<0.60); Partial Thromboplastin Time 26.6 sec (22.0-30.0)
[2020-01-24] MEDS ORDERED: SODIUM CHLORIDE 0.9% 1,000 ML IV ONE (20:11)
[2020-01-24] MEDS ORDERED: PROMETHAZINE 25 MG TAB PO STA (20:43)
[2020-01-24] MEDS ORDERED: HYDROmorphone 1 MG/ML 1 ML SYRINGE IVP STA (20:47)
--- NOTE | 2020-01-24 20:53 | ED ---
General Adult HPI - General Chief complaint: Chest Pain Stated complaint: chest pain Time Seen by Provider: 01/24/20 18:45 Source: patient Mode of arrival: ambulatory Limitations: no limitations - History of Present Illness Initial comments: 29-year-old female patient presents to the emergency department today for evaluation of chest pain and nausea. Patient states the pain started this morning and has been persistent throughout the day. States the pain does come and go. States she did have some indigestion with this. Denies any pain radiation through to her back. Denies any cough or congestion. Denies fever or chills. She denies any constipation or diarrhea. Patient denies any recent rash, cough, shortness of breath, chest pain, diarrhea, constipation, numbness, tingling, dizziness, weakness, hematuria, dysuria, urinary urgency, urinary frequency, headache, visual changes, or any other complaints. - Related Data Home Medications Medication Instructions Recorded Confirmed Loperamide [Imodium] 6 mg PO DAILY 02/23/18 01/24/20 Acetaminophen [Tylenol] 1,000 mg PO Q4-6H PRN 01/24/20 01/24/20 Adalimumab [Humira Pen] 40 mg SQ Q14D 01/24/20 01/24/20 Aspirin [Children's Aspirin] 81 mg PO DAILY PRN 01/24/20 01/24/20 Folic Acid 0.4 mg PO DAILY 01/24/20 01/24/20 Kratom Supplement 1 tab PO DAILY 01/24/20 01/24/20 Loratadine [Claritin] 10 mg PO DAILY 01/24/20 01/24/20 [place]-3/Dha/Epa/Fish Oil [Fish Oil 1 cap PO DAILY 01/24/20 01/24/20 500 mg Softgel] Vitamin C/Biotin [Hair, Skin and 1 tab PO DAILY 01/24/20 01/24/20 Nails] azaTHIOprine [Imuran] 50 mg PO DAILY 01/24/20 01/24/20 Previous Rx's Medication Instructions Recorded Promethazine [Phenergan] 25 mg PO BID #10 tab 01/24/20 Allergies Allergy/AdvReac Type Severity Reaction Status Date / Time cat dander Allergy Swelling Verified 01/24/20 19:44 ciprofloxacin [From Cipro] Allergy Unknown Verified 01/24/20 19:44 ciprofloxacin HCl Allergy Unknown Verified 01/24/20 19:44 [From Cipro] codeine Allergy Unknown Verified 01/24/20 19:44 diphenhydramine HCl Allergy Unknown Verified 01/24/20 19:44 [From Benadryl] Latex, Natural Rubber Allergy Unknown Verified 01/24/20 19:44 meperidine HCl [From Demerol] Allergy Unknown Verified 01/24/20 19:44 morphine Allergy Unknown Verified 01/24/20 19:44 ondansetron [From Zofran] Allergy Migraine Verified 01/24/20 19:44 acetaminophen [From Vicodin] AdvReac Nausea Verified 01/24/20 19:44 hydrocodone [From Vicodin] AdvReac Nausea Verified 01/24/20 19:44 metronidazole [From Flagyl] AdvReac Unknown Verified 01/24/20 19:44 Review of Systems ROS Statement: Those systems with pertinent positive or pertinent negative responses have been documented in the HPI. ROS Other: All systems not noted in ROS Statement are negative. Past Medical History Past Medical History: Fibromyalgia, Supraventricular Tachycardia (SVT) Additional Past Medical History / Comment(s): crohns, migraine álvarez, ovarian cysts History of Any Multi-Drug Resistant Organisms: ESBL Date of last positivie culture/infection: 08/08/2014 MDRO Source:: Groin-ESBL Klebsiella Past Surgical History: Appendectomy, Bowel Resection, Cardiac Ablation Additional Past Surgical History / Comment(s): J-POUCH, subtotal colectomy with ileostomy secondary to crohn's in January 2010 at [facility] in [facility]. Ileal pouch and anal anastomosis in September 2010. Past Anesthesia/Blood Transfusion Reactions: No Reported Reaction Past Psychological History: Anxiety, Bipolar, Depression Smoking Status: Light tobacco smoker Past Alcohol Use History: None Reported Past Drug Use History: Marijuana - Past Family History Father Family Medical History: Unable to Obtain Additional Family Medical History / Comment(s): Father is 54 years of age and has a problem with alcoholism. Mother Additional Family Medical History / Comment(s): Mother is in her 50s and has mental health issues as well as treatment currently for cat scratch fever. Brother(s) Additional Family Medical History / Comment(s): Patient has 2 brothers one has problems with IBS and one has anger management issues. Patient does not have any sisters. She does not have any children of her own. She states there was a grandmother with Crohn's disease. General Exam Limitations: no limitations General appearance: alert, in no apparent distress, other (Physical well- developed, well-nourished adult female patient in no acute distress. Vital signs upon presentation are temperature 100.9F, pulse 84, respirations 20, blood pressure 109/66, pulse ox 98% on room air.) ENT exam: Present: normal exam, normal oropharynx, mucous membranes moist Respiratory exam: Present: normal lung sounds bilaterally. Absent: respiratory distress, wheezes, rales, rhonchi, stridor Cardiovascular Exam: Present: regular rate, normal rhythm, normal heart sounds. Absent: systolic murmur, diastolic murmur, rubs, gallop, clicks GI/Abdominal exam: Present: soft, tenderness (Mild generalized), normal bowel sounds. Absent: distended, guarding, rebound, rigid Neurological exam: Present: alert, oriented X3, CN II-XII intact Psychiatric exam: Present: normal affect, normal mood Skin exam: Present: warm, dry, intact, normal color. Absent: rash Course Vital Signs 01/24/20 01/24/20 01/24/20 17:11 19:00 21:55 Temperature 100.9 F H 99.0 F Pulse Rate 84 82 75 Respiratory 20 18 18 Rate Blood Pressure 109/66 107/68 108/81 O2 Sat by Pulse 98 97 99 Oximetry EKG Findings - EKG Comments: EKG Findings:: EKG obtained at 1721 shows sinus rhythm with a short TX interval. Ventricular rate 73, TX interval 106, QRS duration 82, QT 426, QTc 469. No evidence of ST elevation or depression. Medical Decision Making - Medical Decision Making 29-year-old female patient presents to the emergency department today for eval uation of chest pain nausea. Chest x-ray is unremarkable. EKG showed sinus rhythm. Troponin is negative. D-dimer is negative. Lipase is mildly elevated at 538. We did discuss this finding and discussed that this could be early pancreatitis. She was given 1500 mL of IV fluids here. She is instructed to stick to clear liquid diet for the next 24-48 hours. She is instructed to strictly avoid fat containing foods. She'll be discharged. The primary care physician for recheck in 1-2 days. Return parameters were discussed in detail. She verbalizes understanding and agrees with this plan. - Lab Data Result diagrams: 01/24/20 19:18 01/24/20 19:18 Lab Results 01/24/20 01/24/20 01/24/20 Range/Units 19:18 19:18 19:18 WBC 7.6 (3.8-10.6) k/uL RBC 3.65 L (3.80-5.40) m/uL Hgb 12.1 (11.4-16.0) gm/dL Hct 35.7 (34.0-46.0) % MCV 97.8 (80.0-100.0) fL MCH 33.1 (25.0-35.0) pg MCHC 33.8 (31.0-37.0) g/dL RDW 12.5 (11.5-15.5) % Plt Count 242 (150-450) k/uL MPV 7.1 Neutrophils % 63 % Lymphocytes % 29 % Monocytes % 4 % Eosinophils % 1 % Basophils % 1 % Neutrophils # 4.8 (1.3-7.7) k/uL Lymphocytes # 2.2 (1.0-4.8) k/uL Monocytes # 0.3 (0-1.0) k/uL Eosinophils # 0.1 (0-0.7) k/uL Basophils # 0.1 (0-0.2) k/uL PT 10.0 (9.0-12.0) sec INR 1.0 (<1.2) APTT 26.6 (22.0-30.0) sec D-Dimer 0.29 (<0.60) mg/L FEU Sodium 138 (137-145) mmol/L Potassium 3.8 (3.5-5.1) mmol/L Chloride 106 (98-107) mmol/L Carbon Dioxide 25 (22-30) mmol/L Anion Gap 7 mmol/L BUN 8 (7-17) mg/dL Creatinine 0.62 (0.52-1.04) mg/dL Est GFR (CKD-EPI)AfAm >90 (>60 ml/min/1.73 sqM) Est GFR (CKD-EPI)NonAf >90 (>60 ml/min/1.73 sqM) Glucose 134 H (74-99) mg/dL Calcium 8.8 (8.4-10.2) mg/dL Magnesium 1.7 (1.6-2.3) mg/dL Total Bilirubin 0.2 (0.2-1.3) mg/dL AST 20 (14-36) U/L ALT 12 (4-34) U/L Alkaline Phosphatase 59 (38-126) U/L Troponin I (0.000-0.034) ng/mL Total Protein 6.6 (6.3-8.2) g/dL Albumin 4.1 (3.5-5.0) g/dL Lipase 538 H (23-300) U/L 01/23/ Range/Units 19:18 WBC (3.8-10.6) k/uL RBC (3.80-5.40) m/uL Hgb (11.4-16.0) gm/dL Hct (34.0-46.0) % MCV (80.0-100.0) fL MCH (25.0-35.0) pg MCHC (31.0-37.0) g/dL RDW (11.5-15.5) % Plt Count (150-450) k/uL MPV Neutrophils % % Lymphocytes % % Monocytes % % Eosinophils % % Basophils % % Neutrophils # (1.3-7.7) k/uL Lymphocytes # (1.0-4.8) k/uL Monocytes # (0-1.0) k/uL Eosinophils # (0-0.7) k/uL Basophils # (0-0.2) k/uL PT (9.0-12.0) sec INR (<1.2) APTT (22.0-30.0) sec D-Dimer (<0.60) mg/L FEU Sodium (137-145) mmol/L Potassium (3.5-5.1) mmol/L Chloride (98-107) mmol/L Carbon Dioxide (22-30) mmol/L Anion Gap mmol/L BUN (7-17) mg/dL Creatinine (0.52-1.04) mg/dL Est GFR (CKD-EPI)AfAm (>60 ml/min/1.73 sqM) Est GFR (CKD-EPI)NonAf (>60 ml/min/1.73 sqM) Glucose (74-99) mg/dL Calcium (8.4-10.2) mg/dL Magnesium (1.6-2.3) mg/dL Total Bilirubin (0.2-1.3) mg/dL AST (14-36) U/L ALT (4-34) U/L Alkaline Phosphatase (38-126) U/L Troponin I <0.012 (0.000-0.034) ng/mL Total Protein (6.3-8.2) g/dL Albumin (3.5-5.0) g/dL Lipase (23-300) U/L - Radiology Data Radiology results: report reviewed, image reviewed One view x-ray of the chest is obtained. Report was reviewed in its entirety. Impression by Dr. Isidro shows no active cardiopulmonary disease. No adverse change. Disposition Clinical Impression: Pancreatitis, Chest pain Disposition: HOME SELF-CARE Condition: Good Instructions (If sedation given, give patient instructions): Chest Pain (ED), Pancreatitis (ED) Additional Instructions: Clear liquid diet for the next 24-48 hours. Continue home pain medication as directed. Follow-up with your primary care physician for recheck in 1-2 days. Return to the emergency department immediately if symptoms change or worsen. Prescriptions: Promethazine [Phenergan] 25 mg PO BID #10 tab Is patient prescribed a controlled substance at d/c from ED?: No Referrals: None,Stated [Primary Care Provider] - 1-2 days Time of Disposition: 20:53
[2020-01-24 21:55] VITALS: BP 108/81; PULSE 75
== END 2020-01-24 22:04 | disposition home or self-care (01) ==
LOC: EC 17:07
DX: K85.90 Acute pancreatitis without necrosis or infection, unspecified (principal); R07.9 Chest pain, unspecified; F17.200 Nicotine dependence, unspecified, uncomplicated; Z79.899 Other long term (current) drug therapy; Z91.048 Other nonmedicinal substance allergy status; Z88.1 Allergy status to other antibiotic agents; Z88.5 Allergy status to narcotic agent; Z91.040 Latex allergy status; Z88.8 Allergy status to other drugs, medicaments and biological substances; Z88.6 Allergy status to analgesic agent
CPT/HCPCS: 36415; 93005; 85379; 80053; 83690; 83735; 84484; 85025; 85610; 85730; 71045; 99285; 96374; 96361 ×2; U0003; J1170

== ENCOUNTER 2020-02-19 18:16 | Emergency (ER) | payer OTHER ==
[2020-02-19 18:43] VITALS: BP 128/79; PULSE 100; RESP 18; TEMP 98.4
[2020-02-19] MEDS ORDERED: ACET/COD 300 MG/30 MG STARTER PACK 6 TAB BTL PO STA (19:06)
--- NOTE | 2020-02-19 19:07 | ED ---
ENT HPI - General Chief complaint: Dental/Oral Stated complaint: dental pain Time Seen by Provider: 02/19/20 18:59 Source: patient Mode of arrival: ambulatory Limitations: no limitations - History of Present Illness Initial comments: 30yo female presenting for cc of left lower dental pain. pt states she has had on and off dental pain for a week. she states she went to [facility] today and started augmentin. pt states she needs something for the pain. patient denies fevers, D breathing difficulty swelling facial swelling or neck swelling. Patient appears nontoxic on arrival afebrile - Related Data Home Medications Medication Instructions Recorded Confirmed Loperamide [Imodium] 6 mg PO DAILY 02/23/18 01/24/20 Acetaminophen [Tylenol] 1,000 mg PO Q4-6H PRN 01/24/20 01/24/20 Adalimumab [Humira Pen] 40 mg SQ Q14D 01/24/20 01/24/20 Aspirin [Children's Aspirin] 81 mg PO DAILY PRN 01/24/20 01/24/20 Folic Acid 0.4 mg PO DAILY 01/24/20 01/24/20 Kratom Supplement 1 tab PO DAILY 01/24/20 01/24/20 Loratadine [Claritin] 10 mg PO DAILY 01/24/20 01/24/20 [place]-3/Dha/Epa/Fish Oil [Fish Oil 1 cap PO DAILY 01/24/20 01/24/20 500 mg Softgel] Vitamin C/Biotin [Hair, Skin and 1 tab PO DAILY 01/24/20 01/24/20 Nails] azaTHIOprine [Imuran] 50 mg PO DAILY 01/24/20 01/24/20 Previous Rx's Medication Instructions Recorded Promethazine [Phenergan] 25 mg PO BID #10 tab 01/24/20 Allergies Allergy/AdvReac Type Severity Reaction Status Date / Time cat dander Allergy Swelling Verified 02/19/20 18:39 ciprofloxacin [From Cipro] Allergy Unknown Verified 02/19/20 18:39 ciprofloxacin HCl Allergy Unknown Verified 02/19/20 18:39 [From Cipro] codeine Allergy Unknown Verified 02/19/20 18:39 diphenhydramine HCl Allergy Unknown Verified 02/19/20 18:39 [From Benadryl] Latex, Natural Rubber Allergy Unknown Verified 02/19/20 18:39 meperidine HCl [From Demerol] Allergy Unknown Verified 02/19/20 18:39 morphine Allergy Unknown Verified 02/19/20 18:39 ondansetron [From Zofran] Allergy Migraine Verified 02/19/20 18:39 acetaminophen [From Vicodin] AdvReac Nausea Verified 02/19/20 18:39 hydrocodone [From Vicodin] AdvReac Nausea Verified 02/19/20 18:39 metronidazole [From Flagyl] AdvReac Unknown Verified 02/19/20 18:39 Review of Systems ROS Statement: Those systems with pertinent positive or pertinent negative responses have been documented in the HPI. ROS Other: All systems not noted in ROS Statement are negative. Past Medical History Past Medical History: Fibromyalgia, Supraventricular Tachycardia (SVT) Additional Past Medical History / Comment(s): crohns, migraine álvarez, ovarian cysts History of Any Multi-Drug Resistant Organisms: ESBL Date of last positivie culture/infection: 08/08/2014 MDRO Source:: Groin-ESBL Klebsiella Past Surgical History: Appendectomy, Bowel Resection, Cardiac Ablation Additional Past Surgical History / Comment(s): J-POUCH, subtotal colectomy with ileostomy secondary to crohn's in January 2010 at [facility]. Ileal pouch and anal anastomosis in September 2010. Past Anesthesia/Blood Transfusion Reactions: No Reported Reaction Past Psychological History: Anxiety, Bipolar, Depression Smoking Status: Current some day smoker, Light tobacco smoker Past Alcohol Use History: None Reported Past Drug Use History: Marijuana - Past Family History Father Family Medical History: Unable to Obtain Additional Family Medical History / Comment(s): Father is 54 years of age and has a problem with alcoholism. Mother Additional Family Medical History / Comment(s): Mother is in her 50s and has mental health issues as well as treatment currently for cat scratch fever. Brother(s) Additional Family Medical History / Comment(s): Patient has 2 brothers one has problems with IBS and one has anger management issues. Patient does not have any sisters. She does not have any children of her own. She states there was a grandmother with Crohn's disease. General Exam - General Exam Comments Initial Comments: General: The patient is awake and alert, in no distress, and does not appear acutely ill. Eye: Pupils are equal, round and reactive to light, extra-ocular movements are intact. No nystagmus. There is normal conjunctiva bilaterally. No signs of icterus. Ears, nose, mouth and throat: There are moist mucous membranes and no oral lesions. No abscess of gingiva, pain to percussion of tooth #20. No swelling below the tongue or below the angle of the mandible Neck: The neck is supple, there is no tenderness or JVD. Musculoskeletal: Normal ROM, no tenderness. Strength 5/5. Sensation intact. Pulses equal bilaterally 2+. Neurological: A&O x 3. CN II-XII intact grossly, There are no obvious motor or sensory deficits. Coordination appears grossly intact. Speech is normal. Skin: Skin is warm and dry and no rashes or lesions are noted. Psychiatric: Cooperative, appropriate mood & affect, normal judgment. Limitations: no limitations Course Vital Signs 02/19/20 18:39 Temperature 98.4 F Pulse Rate 100 Respiratory 18 Rate Blood Pressure 128/79 O2 Sat by Pulse 99 Oximetry Medical Decision Making - Medical Decision Making No findings of obvious abscess or Leopoldo's angina. Patient initiated on Augmentin today took 1 dose she does not appear toxic presenting for pain control patient was given Tylenol 3 as she states she has tolerated this before despite her codeine ALLERGY. Patient was discharged appearing well Disposition Clinical Impression: Pain, dental Disposition: HOME SELF-CARE Condition: Good Instructions (If sedation given, give patient instructions): Dental Abscess (ED), Toothache (ED) Additional Instructions: Please use medication as discussed. Please follow-up with dentist in next 24-48 hours, take your augmentin as directed. Please return to emergency room if the symptoms increase or worsen or for any other concerns. Is patient prescribed a controlled substance at d/c from ED?: No Referrals: None,Stated [Primary Care Provider] - 1-2 days Time of Disposition: 19:07
== END 2020-02-19 19:20 | disposition home or self-care (01) ==
LOC: EC 18:16
DX: K08.89 Other specified disorders of teeth and supporting structures (principal); M79.7 Fibromyalgia; Z79.82 Long term (current) use of aspirin; Z79.899 Other long term (current) drug therapy; F17.210 Nicotine dependence, cigarettes, uncomplicated; Z88.5 Allergy status to narcotic agent; Z88.8 Allergy status to other drugs, medicaments and biological substances; Z91.040 Latex allergy status; Z88.1 Allergy status to other antibiotic agents; Z91.048 Other nonmedicinal substance allergy status; Z90.49 Acquired absence of other specified parts of digestive tract; Z98.890 Other specified postprocedural states
CPT/HCPCS: 99283